=== PATIENT | female | born 1935 | race Caucasian/White ===

== ENCOUNTER 2017-04-09 07:01 | Inpatient (IN) | payer MEDICARE, OTHER ==
[~2017-04-09] VITALS: Ht 157.5 cm; Wt 103.1 kg
[2017-04-09] MEDS ORDERED: fentaNYL INJECTION 100 MCG/2 ML AMP IVP STA ×2 (07:10→09:32)
[2017-04-09 07:15] LABS: BASOPHILS # (AUTO) 0.1 10^3/uL (0.0-0.1); BASOPHILS % (AUTO) 0 % (0-10); EOSINOPHILS # (AUTO) 0.7 10^3/uL (0.0-0.3); EOSINOPHILS % (AUTO) 6 % (0-10); LYMPHOCYTES # (AUTO) 3.3 X 10^3 (1.0-4.0); LYMPHOCYTES % (AUTO) 28 % (12-44); MEAN CORPUSCULAR HEMOGLOBIN 27 PG (25-34); MEAN CORPUSCULAR HGB CONC 31 G/DL (32-36); MEAN CORPUSCULAR VOLUME 86 FL (80-99); MONOCYTES # (AUTO) 1.3 X 10^3 (0.0-1.0); MONOCYTES % (AUTO) 11 % (0-12); NEUTROPHILS # (AUTO) 6.4 X 10^3 (1.8-7.8); NEUTROPHILS % (AUTO) 54 % (42-75); PLATELET COUNT 169 10^3/uL (130-400); RED BLOOD COUNT 3.93 10^6/uL (4.35-5.85); RED CELL DISTRIBUTION WIDTH 13.6 % (10.0-14.5); WHITE BLOOD COUNT 11.7 10^3/uL (4.3-11.0)
[2017-04-09 07:26] LABS: PROTHROMBIN TIME PATIENT 12.8 SEC (12.2-14.7)
[2017-04-09 07:35] LABS: ALBUMIN 3.5 GM/DL (3.2-4.5); BILIRUBIN,TOTAL 0.2 MG/DL (0.1-1.0); CREATININE SERUM 1.29 MG/DL (0.60-1.30); POTASSIUM 5.2 MMOL/L (3.6-5.0); TOTAL PROTEIN 6.5 GM/DL (6.4-8.2)
--- NOTE | 2017-04-09 07:39 | ED Fall/Injury ---
General Chief Complaint: Trauma-Non Activation Stated Complaint: FALL Source: patient, EMS Exam Limitations: no limitations History of Present Illness Time seen by provider: 07:00 Initial Comments Here by EMS with report of fall this morning sometime after 6 a.m. Reports that she was trying to go to the bathroom and was a little unsteady on her feet when she fell onto her left hip. She complains of severe pain to the left hip. EMS was summoned to the [place] [facility]. They did encounter her on the floor. IV established and 100 g of fentanyl was given because of severe pain. Patient denies hitting her head and only has pain on the left hip. No loss of consciousness or neck pain. Patient transported here for further evaluation. Denies other injury aside from the left hip pain. Does admit to landing on her left hip. Occurred: just prior to arrival Severity: moderate Injuries/Pain Location: pelvis, lower extremity Context: lost balance Loss of Consciousness: no loss of consciousness Associated Symptoms (Fall): No Abdominal Pain, No Chest Pain, No Confusion, No Headache, No Lightheadedness, Muscle Spasms, No Nausea/Vomiting, No Neck Pain, No Shortness of Air Allergies and Home Medications Allergies Coded Allergies: amlodipine (Verified Allergy, Unknown, 04/09/17) influenza virus vaccine, specific (Verified Allergy, Unknown, 04/09/17) loratadine (Verified Allergy, Unknown, 04/09/17) metformin (Verified Allergy, Unknown, 04/09/17) niacin (Verified Allergy, Unknown, 04/09/17) Constitutional: see HPI, No chills, No fever Eyes: No Symptoms Reported Ears, Nose, Mouth, Throat: no symptoms reported Respiratory: no symptoms reported, No short of breath Cardiovascular: no symptoms reported Gastrointestinal: No nausea, No vomiting Genitourinary: no symptoms reported, No dysuria, No pain Musculoskeletal: see HPI, joint pain, muscle pain, muscle stiffness Skin: no symptoms reported Psychiatric/Neurological: No Symptoms Reported All Other Systems Reviewed Negative Unless Noted: Yes Past Ststjso-Yaipad-Upkikh Hx Patient Social History Alcohol Use: Denies Use Recreational Drug Use: No Smoking Status: Never a Smoker Recent Foreign Travel: No Contact w/Someone Who Travel: No Surgeries HX Surgeries: Yes Surgeries: Orthopedic Respiratory Hx Respiratory Disorders: No Cardiovascular Hx Cardiac Disorders: Yes Cardiac Disorders: Coronary Artery Disease, Hypertension Neurological Hx Neurological Disorders: Yes Neurological Disorders: Neuropathy Genitourinary Hx Genitourinary Disorders: No Gastrointestinal Hx Gastrointestinal Disorders: No Musculoskeletal Hx Musculoskeletal Disorders: Yes Musculoskeletal Disorders: Fractures Endocrine Hx Endocrine Disorders: Yes Endocrine Disorders: Diabetes, Non-Insulin dep HEENT HX ENT Disorders: No Psychosocial Hx Psychiatric Problems: No Reviewed Nursing Assessment Reviewed/Agree w Nursing PMH: Yes Family Medical History Significant Family History: No Pertinent Family Hx Physical Exam Vital Signs Vital Sign - Last 12Hours 04/09/17 07:01 Temp 98.2 Pulse 72 Resp 14 B/P (MAP) 129/76 Pulse Ox 96 O2 Delivery Nasal Cannula O2 Flow Rate 2.00 Capillary Refill : General Appearance: WD/WN, moderate distress (hip pain) HEENT: PERRL/EOMI, pharynx normal Neck: full range of motion, supple Cardiovascular: regular rate, rhythm, no murmur Respiratory: lungs clear, normal breath sounds Peripheral Pulses: 2+ Dorsalis Pedis (R), 2+ Left Dors-Pedis (L), 2+ Radial Pulses (R), 2+ Radial Pulses (L) Gastrointestinal: non tender, soft Extremities: no pedal edema, pelvis stable, other (moderate tenderness to the area of the left hip. Shortening and rotation of the left leg externally) Neurologic/Psychiatric: alert, oriented x 3 Skin: normal color, warm/dry [place] Coma Score Best Eye Response: (4) Open Spontaneously Best Verbal Response: (5) Oriented Best Motor Response: (6) Obeys Commands Progress/Results/Core Measures Results/Orders Lab Results Laboratory Tests Test 04/09/17 07:05 Range/Units White Blood Count 11.7 H 4.3-11.0 10^3/uL Red Blood Count 3.93 L 4.35-5.85 10^6/uL Hemoglobin 10.5 L 11.5-16.0 G/DL Hematocrit 34 L 35-52 % Mean Corpuscular Volume 86 80-99 FL Mean Corpuscular Hemoglobin 27 25-34 PG Mean Corpuscular Hemoglobin Concent 31 L 32-36 G/DL Red Cell Distribution Width 13.6 10.0-14.5 % Platelet Count 169 130-400 10^3/uL Mean Platelet Volume 7.4-10.4 FL Neutrophils (%) (Auto) 54 42-75 % Lymphocytes (%) (Auto) 28 12-44 % Monocytes (%) (Auto) 11 0-12 % Eosinophils (%) (Auto) 6 0-10 % Basophils (%) (Auto) 0 0-10 % Neutrophils # (Auto) 6.4 1.8-7.8 X 10^3 Lymphocytes # (Auto) 3.3 1.0-4.0 X 10^3 Monocytes # (Auto) 1.3 H 0.0-1.0 X 10^3 Eosinophils # (Auto) 0.7 H 0.0-0.3 10^3/uL Basophils # (Auto) 0.1 0.0-0.1 10^3/uL Prothrombin Time 12.8 12.2-14.7 SEC INR Comment 1.0 0.8-1.4 Activated Partial Thromboplast Time 31 24-35 SEC Sodium Level 136 135-145 MMOL/L Potassium Level 5.2 H 3.6-5.0 MMOL/L Chloride Level 105 98-107 MMOL/L Carbon Dioxide Level 22 21-32 MMOL/L Anion Gap 9 5-14 MMOL/L Blood Urea Nitrogen 27 H 7-18 MG/DL Creatinine 1.29 0.60-1.30 MG/DL Estimat Glomerular Filtration Rate 40 BUN/Creatinine Ratio 21 Glucose Level 205 H 70-105 MG/DL Calcium Level 9.0 8.5-10.1 MG/DL Total Bilirubin 0.2 0.1-1.0 MG/DL Aspartate Amino Transf (AST/SGOT) 22 5-34 U/L Alanine Aminotransferase (ALT/SGPT) 17 0-55 U/L Alkaline Phosphatase 74 40-136 U/L Total Protein 6.5 6.4-8.2 GM/DL Albumin 3.5 3.2-4.5 GM/DL My Orders Orders - MATTHEW JAY MD Cbc With Automated Diff (04/09/17 07:04) Comprehensive Metabolic Panel (04/09/17 07:04) Protime With Inr (04/09/17 07:04) Partial Thromboplastin Time (04/09/17 07:04) Chest 1 View, Ap/Pa Only (04/09/17 07:04) Femur, Left, 2 Views (04/09/17 07:04) Pelvis (04/09/17 07:04) Ct Head Wo (04/09/17 07:04) Fentanyl Injection (Sublimaze Injection (04/09/17 07:10) Ekg Tracing (04/09/17 07:42) Vital Signs/I&O Vital Sign - Last 12Hours 04/09/17 07:01 Temp 98.2 Pulse 72 Resp 14 B/P (MAP) 129/76 Pulse Ox 96 O2 Delivery Nasal Cannula O2 Flow Rate 2.00 Progress Note : Progress Note Seen and evaluated. IV by EMS. Fentanyl 50 g IV. Labs, EKG and chest x-ray ordered. X-ray of the left hip and pelvis ordered. CT head ordered due to history of Plavix use. Monitor patient. 0820: Left hip fracture noted. Attempting to contact Dr. Palma. Message left with his office to return call as cell services currently disrupted. 0847: Discussed case with Dr. Palma. He accepts patient for admission, inpatient status. I did discuss the case with Dr. Simmons 0828 and she accepts patient for consult. Patient agrees with plan. ECG Initial ECG Impression Date: Apr 09, 2017 Initial ECG Impression Time: 08:14 Initial ECG Rate: 69 Initial ECG Rhythm: Normal Sinus Comment Sinus rhythm with left axis deviation. No evidence of ST elevation DE. Similar morphology to previous although axis shift from 05/20/2000. Interpreted by me. Diagnostic Imaging Diagonstic Imaging: Xray Plain Films/CT/US/NM/MRI: femur Comments VIA [facility]. [place], [place] NAME: SHAMIKA STONE [facility] REC#: [id number] PT STATUS: REG ER : 1935 PHYSICIAN: MATTHEW JAY MD ADMIT DATE: 04/09/17/ER Draft Date of Exam:04/09/17 FEMUR, LEFT, 2 VIEWS INDICATION: Fall. Findings: Comminuted intertrochanteric fracture left femur is noted. Femoral head is in normal articulation with the acetabulum. Femoral shaft is intact. Knee shows good alignment. IMPRESSION: Comminuted intertrochanteric fracture left femur. Dictated on workstation # [id number] Dict: 04/09/17 0758 Trans: 04/09/17 0759 [facility] [id number] Interpreted by: CAROL ALEXIS MD Electronically signed by: Reviewed: Reviewed by Me Diagonstic Imaging: CT Plain Films/CT/US/NM/MRI: head Comments VIA [place], [place] NAME: SHAMIKA STONE [facility] REC#: [id number] PT STATUS: REG ER : 1935 PHYSICIAN: MATTHEW JAY MD ADMIT DATE: 04/09/17/ER Draft Date of Exam:04/09/17 CT HEAD WO PROCEDURE: CT head without contrast. TECHNIQUE: Multiple contiguous axial images were obtained through the brain without the use of intravenous contrast. INDICATION: Fall. FINDINGS: Ventricles and cortical gyral pattern are normal. There is no intracranial hemorrhage. There is no mass effect. No extra-axial fluid collection. Basal cisterns are clear. There is focal area of encephalomalacia noted in the left parietal occipital cortex. Mastoid air cells are clear. No calvarial fractures. IMPRESSION: Small focal area of encephalomalacia left parietal occipital cortex, otherwise negative CT head. Dictated on workstation # [id number] Dict: 04/09/17 0756 Trans: 04/09/17 0800 [facility] [id number] Interpreted by: CAROL ALEXIS MD Electronically signed by: Diagonstic Imaging: Xray Plain Films/CT/US/NM/MRI: pelvis Comments VIA [facility]. [place], [place] NAME: SHAMIKA STONE [facility] REC#: [id number] PT STATUS: REG ER : 1935 PHYSICIAN: MATTHEW JAY MD ADMIT DATE: 04/09/17/ER Draft Date of Exam:04/09/17 PELVIS INDICATION: Fall. FINDINGS: There is a comminuted fracture involving the trochanteric region left femur. Femoral head is in normal articulation with the acetabulum. Right hip appears normal. Bony pelvis appears intact. IMPRESSION: Comminuted intertrochanteric fracture left hip. Dictated on workstation # [id number] Dict: 04/09/17 0757 Trans: 04/09/17 0759 [facility] [id number] Interpreted by: CAROL ALEXIS MD Electronically signed by: Reviewed: Reviewed by Ma Diagonstic Imaging: Xray Plain Films/CT/US/NM/MRI: chest Comments VIA [facility]. [place], [place] NAME: SHAMIKA STONE [facility] REC#: [id number] PT STATUS: REG ER : 1935 PHYSICIAN: MATTHEW JAY MD ADMIT DATE: 04/09/17/ER Draft Date of Exam:04/09/17 CHEST 1 VIEW, AP/PA ONLY INDICATION: Fall. Findings: Portable chest show the lungs to be well-aerated and clear. Heart is not enlarged. No pulmonary edema. No hilar adenopathy. No pneumothorax or pleural effusion. No rib fractures. IMPRESSION: Normal portable chest. Dictated on workstation # [id number] Dict: 04/09/17 0758 Trans: 04/09/17 0759 [facility] [id number] Interpreted by: CAROL ALEXIS MD Electronically signed by: Departure Communication Time/Spoke to Admitting Phy: 08:47 Time/Spoke to Consulting Physi: 08:28 Impression Impression: Primary Impression: Fracture, intertrochanteric, left femur Qualified Codes: S72.145A - Nondisplaced intertrochanteric fracture of left femur, initial encounter for closed fracture Disposition: 01 HOME, SELF-CARE Condition: Improved (needs arise a 2 cm) Decision to Admit Reason: Admit from ER (General) Decision to Admit/Date: Apr 09, 2017 Time/Decision to Admit Time: 09:00 Departure-Patient Inst. Referrals: UNKNOWN (PCP/Family) Primary Care Physician MATTHEW JAY MD Apr 09, 2017 07:39
--- NOTE | 2017-04-09 07:59 | Diagnostic Imaging Report ---
INDICATION: Fall. FINDINGS: There is a comminuted fracture involving the trochanteric region left femur. Femoral head is in normal articulation with the acetabulum. Right hip appears normal. Bony pelvis appears intact. IMPRESSION: Comminuted intertrochanteric fracture left hip. Dictated by: Dictated on workstation # [id number]
--- NOTE | 2017-04-09 08:00 | Diagnostic Imaging Report ---
PROCEDURE: CT head without contrast. TECHNIQUE: Multiple contiguous axial images were obtained through the brain without the use of intravenous contrast. INDICATION: Fall. FINDINGS: Ventricles and cortical gyral pattern are normal. There is no intracranial hemorrhage. There is no mass effect. No extra-axial fluid collection. Basal cisterns are clear. There is focal area of encephalomalacia noted in the left parietal occipital cortex. Mastoid air cells are clear. No calvarial fractures. IMPRESSION: Small focal area of encephalomalacia left parietal occipital cortex, otherwise negative CT head. Dictated by: Dictated on workstation # [id number]
--- NOTE | 2017-04-09 08:00 | Diagnostic Imaging Report ---
INDICATION: Fall. Findings: Comminuted intertrochanteric fracture left femur is noted. Femoral head is in normal articulation with the acetabulum. Femoral shaft is intact. Knee shows good alignment. IMPRESSION: Comminuted intertrochanteric fracture left femur. Dictated by: Dictated on workstation # [id number]
--- NOTE | 2017-04-09 08:00 | Diagnostic Imaging Report ---
INDICATION: Fall. Findings: Portable chest show the lungs to be well-aerated and clear. Heart is not enlarged. No pulmonary edema. No hilar adenopathy. No pneumothorax or pleural effusion. No rib fractures. IMPRESSION: Normal portable chest. Dictated by: Dictated on workstation # [id number]
[2017-04-09] MEDS ORDERED: fentaNYL INJECTION 100 MCG/2 ML AMP ONE ×3 (09:28→18:30)
[2017-04-09 09:45] VITALS: BP 133/67
[2017-04-09] MEDS: fentaNYL INJECTION 100 MCG/2 ML AMP IV PRN ×7 (09:53→16:48)
[2017-04-09] MEDS ORDERED: ONDANSETRON 4 MG/2 ML (SDV) Z0FRAN IV PRN (10:15)
[2017-04-09] MEDS ORDERED: CATHETER FLUSH 10 ML SYR IV PRN (10:15)
[2017-04-09] MEDS ORDERED: NS IV 1000 ML 1,000 ML IV SCH (10:15)
[2017-04-09] MEDS ORDERED: DULO60CA58 PO (11:15)
[2017-04-09] MEDS ORDERED: DEXT15DR26 OU (11:15)
[2017-04-09] MEDS ORDERED: ASPI325T32 PO (11:15)
[2017-04-09] MEDS ORDERED: QUET25TA73 PO (11:15)
[2017-04-09] MEDS ORDERED: LUTE1CAP4 PO (11:15)
[2017-04-09] MEDS ORDERED: DOCU-143 PO (11:15)
[2017-04-09] MEDS ORDERED: INSU100V6 SC (11:15)
[2017-04-09] MEDS ORDERED: NAPR220T66 PO ×2 (11:15)
[2017-04-09] MEDS ORDERED: [UNRECOGNIZED DRUG - CODE] PO (11:15)
[2017-04-09] MEDS ORDERED: CRAN250C2 PO (11:15)
[2017-04-09] MEDS ORDERED: CLOP75TA28 PO (11:15)
[2017-04-09] MEDS ORDERED: HYDR-3923 PO (11:15)
[2017-04-09] MEDS ORDERED: PANT40TA3 PO (11:15)
[2017-04-09] MEDS ORDERED: DEXT15DR25 OU (11:15)
[2017-04-09] MEDS ORDERED: LEVO50TA6 PO (11:15)
[2017-04-09] MEDS ORDERED: MELA1TAB15 PO (11:15)
[2017-04-09] MEDS ORDERED: GLIP5TAB13 PO (11:15)
[2017-04-09] MEDS ORDERED: ACET-2267 PO (11:15)
[2017-04-09] MEDS ORDERED: QUET25TA PO (11:15)
[2017-04-09] MEDS ORDERED: GLUC-160 PO (11:15)
[2017-04-09] MEDS ORDERED: HYDR50TA3 PO (11:15)
[2017-04-09] MEDS ORDERED: AMOX1TAB11 PO (11:15)
[2017-04-09] MEDS ORDERED: CARV25TA PO (11:15)
[2017-04-09 12:00] VITALS: BP 132/62
[2017-04-09 12:04] LABS: BILIRUBIN,URINE NEGATIVE (NEGATIVE); KETONES,URINE NEGATIVE (NEGATIVE); LEUKOCYTE ESTERASE ,URINE 1+ (NEGATIVE); NITRITE,URINE NEGATIVE (NEGATIVE); PH,URINE 5 (5-9); PROTEIN,URINE 1+ (NEGATIVE); UROBILINOGEN,URINE NORMAL (NORMAL)
[2017-04-09 12:16] LABS: SQUAMOUS EPITHELIAL CELL,UR RARE /HPF
[2017-04-09] MEDS: inSUlin (REGULAR) HUMAN 1 UNIT/0.01 ML (CHARGE PER UNIT) SC SCH ×3 (15:21→21:36)
[2017-04-09 16:41] VITALS: BP 119/68
[2017-04-09] MEDS ORDERED: morphine INJ 10 MG/ML 1ML (SYR OR VIAL) ONE (17:08)
[2017-04-09] MEDS ORDERED: ONDANSETRON 4 MG/2 ML (SDV) Z0FRAN ONE ×2 (17:09→18:30)
--- NOTE | 2017-04-09 17:30 | History & Physicial ---
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 she was unable to bear weight after the fall due to severe left hip pain. she denies other sites of pain. she has no numbness or tingling. she is requesting surgical stabilization and she understands the risks and the benefits. Date of Admission Apr 09, 2017 at 08:50 Date Seen by Provider: Apr 09, 2017 Time Seen by Provider: 17:28 I consulted on this patient on 04/09/17 17:26 Attending Physician Martha Palma DO Admitting Physician Kerline Simmons MD Consult Allergies and Home Medications Allergies Coded Allergies: amlodipine (Verified Allergy, Unknown, 04/09/17) influenza virus vaccine, specific (Verified Allergy, Unknown, 04/09/17) loratadine (Verified Allergy, Unknown, 04/09/17) metformin (Verified Allergy, Unknown, 04/09/17) niacin (Verified Allergy, Unknown, 04/09/17) Home Medications Acetaminophen 500 Mg Tablet, 1,000 MG PO HS, (Reported) TAKES 2 (500MG) TABLETS Amoxicillin/Potassium Clav 1 Each Tablet, 1 TAB PO BID for 7 Days, (Reported) 7 DAY THERAPY STARTED 04-04-17 Aspirin 325 Mg Tablet.dr, 325 MG PO DAILY, (Reported) Carvedilol 25 Mg Tablet, 25 MG PO BID, (Reported) Clopidogrel Bisulfate 75 Mg Tablet, 75 MG PO DAILY, (Reported) Cranberry Extract 250 Mg Capsule, 250 MG PO BID, (Reported) Dextran 70/Hypromellose 15 Ml Drops, 1 DROP OU TID, (Reported) Dextran/Hypromellose/Glycerin 15 Ml Drops, 1 DROP OU PRN PRN for DRY EYES, ( Reported) Docusate Sodium 100 Mg Capsule, 100 MG PO DAILY PRN for CONSTIPATION-1ST LINE, ( Reported) Duloxetine HCl 60 Mg Capsule.dr, 60 MG PO HS, (Reported) Glipizide 5 Mg Tablet, 5 MG PO 1200, (Reported) Glucosamine/D3/Boswellia Vijaya 1 Each Tablet, 1 TAB PO TID, (Reported) Hydralazine HCl 25 Mg Tablet, 25 MG PO TID, (Reported) Hydrochlorothiazide 50 Mg Tablet, 50 MG PO DAILY PRN for HTN, (Reported) Insulin Glargine,Hum.rec.anlog 100 Unit/1 Ml Vial, 60 UNITS SC DAILY, (Reported) L. Acidophilus/Bifido Longum 15 Mg Capsule.dr, 1 CAP PO BID for 7 Days, ( Reported) 7 DAY THERAPY STARTED 04-04-17 Levothyroxine Sodium 50 Mcg Tablet, 50 MCG PO DAILY, (Reported) Lutein/Zeaxanthin 1 Each Capsule, 1 CAP PO DAILY, (Reported) Melatonin/Pyridoxine 1 Each Tablet, 5 MG PO HS, (Reported) Naproxen Sodium 220 Mg Tablet, 220 MG PO DAILY, (Reported) Naproxen Sodium 220 Mg Tablet, 220 MG PO BID PRN for PAIN-MILD, (Reported) Pantoprazole Sodium 40 Mg Tablet.dr, 40 MG PO DAILY, (Reported) Quetiapine Fumarate 25 Mg Tablet, 12.5 MG PO HS, (Reported) TAKES 1/2 (25MG) TABLET Quetiapine Fumarate 25 Mg Tablet, 25 MG PO DAILY PRN for ANXIETY, (Reported) Past Ucnkoss-Lzggxh-Uztvxy Hx Patient Social History Alcohol Use: Denies Use Recreational Drug Use: No Smoking Status: Never a Smoker 2nd Hand Smoke Exposure: No Physical Abuse Screen: No Sexual Abuse: No Recent Foreign Travel: No Contact w/other who traveled: No Recent Hopitalizations: No Recent Infectious Disease Expo: No Immunizations Up To Date Date of Pneumonia Vaccine: Nov 13, 2016 Seasonal Allergies Seasonal Allergies: No Surgeries HX Surgeries: Yes Surgeries: Orthopedic Respiratory Hx Respiratory Disorders: No Cardiovascular Hx Cardiovascular Disorders: Yes Cardiac Disorders: Coronary Artery Disease, Hypertension Neurological Hx Neurological Disorders: Yes Neurological Disorders: Neuropathy Reproductive System Sexually Transmitted Disease: No HIV/AIDS: No Female Reproductive Disorders: Denies Genitourinary Hx Genitourinary Disorders: No Genitourinary Disorders: UTI-Chronic Gastrointestinal Hx Gastrointestinal Disorders: No Gastrointestinal Disorders: Gastroesophageal Reflux Musculoskeletal Hx Musculoskeletal Disorders: Yes Musculoskeletal Disorders: Degenerate Disk Disease, Arthritis, Chronic Back Pain, Fractures Endocrine Hx Endocrine Disorders: Yes Endocrine Disorders: Diabetes, Non-Insulin dep HEENT HX ENT Disorders: No Psychosocial Hx Psychiatric Problems: No Behavioral Health Disorders: Sleep Difficulties, Anxiety, Depression Blood Transfusions Adverse Reaction to a Blood Tr: Yes Reviewed Nursing Assessment Reviewed/Agree w Nursing PMH: Yes Family Medical History Significant Family History: No Pertinent Family Hx Family Hx: Cardiovascular disease 19 MOTHER Diabetes mellitus 19 MOTHER G8 BROTHER G8 BROTHER Hypertension 19 FATHER Constitutional: no symptoms reported Physical Exam Vital Signs Vital Sign - Last 12Hours 04/09/17 07:01 Temp 98.2 Pulse 72 Resp 14 B/P (MAP) 129/76 Pulse Ox 96 O2 Delivery Nasal Cannula O2 Flow Rate 2.00 Capillary Refill : Less Than 3 Seconds General Appearance: No Apparent Distress Extremity: Other (LLE: short and ext rotated, severe pain with log roll, 2/4 DP , PT, NVSI) Assessment/Plan Assessment and Plan ASSESSMENT: 81 yr with displaced intertrochanteric hip fracture PLAN: left hip IM nailing NPO medicine to clear post operative DVT prophylaxis plan for post op WBAT Problems: Clinical Quality Measures DVT/VTE Risk/Contraindication: Risk Factor Score Per Nursin RFS Level Per Nursing on Admit: 4+=Very High MARTHA PALMA DO Apr 09, 2017 17:30
--- NOTE | 2017-04-09 17:38 | History & Physicial ---
History of Present Illness History of Present Illness Reason for visit/HPI PT IS AN 81 Y/O FEMALE WHO IS A NEW PATIENT TO MY PRACTICE. SHE PRESENTED TO THE EMERGENCY DEPARTMENT AFTER HAVING A FALL AT HER ASSISTED LIVING FACILITY - [facility]IA [facility]. 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 SHE WAS BROUGHT TO THE EMERGENCY DEPARTMENT AROUND 6AM AND WAS ADMITTED TO THE HOSPITAL AFTER CONFIRMATION OF HIP FRACTURE BY XRAY. Date of Admission Apr 09, 2017 at 08:50 Date Seen by Provider: Apr 09, 2017 Time Seen by Provider: 17:33 I consulted on this patient on 04/09/17 17:33 Attending Physician Martha Palma DO Admitting Physician MARTHA PALMA DO Consult Allergies and Home Medications Allergies Coded Allergies: amlodipine (Verified Allergy, Unknown, 04/09/17) influenza virus vaccine, specific (Verified Allergy, Unknown, 04/09/17) loratadine (Verified Allergy, Unknown, 04/09/17) metformin (Verified Allergy, Unknown, 04/09/17) niacin (Verified Allergy, Unknown, 04/09/17) Home Medications Acetaminophen 500 Mg Tablet, 1,000 MG PO HS, (Reported) TAKES 2 (500MG) TABLETS Amoxicillin/Potassium Clav 1 Each Tablet, 1 TAB PO BID for 7 Days, (Reported) 7 DAY THERAPY STARTED 04-04-17 Aspirin 325 Mg Tablet.dr, 325 MG PO DAILY, (Reported) Carvedilol 25 Mg Tablet, 25 MG PO BID, (Reported) Clopidogrel Bisulfate 75 Mg Tablet, 75 MG PO DAILY, (Reported) Cranberry Extract 250 Mg Capsule, 250 MG PO BID, (Reported) Dextran 70/Hypromellose 15 Ml Drops, 1 DROP OU TID, (Reported) Dextran/Hypromellose/Glycerin 15 Ml Drops, 1 DROP OU PRN PRN for DRY EYES, ( Reported) Docusate Sodium 100 Mg Capsule, 100 MG PO DAILY PRN for CONSTIPATION-1ST LINE, ( Reported) Duloxetine HCl 60 Mg Capsule.dr, 60 MG PO HS, (Reported) Glipizide 5 Mg Tablet, 5 MG PO 1200, (Reported) Glucosamine/D3/Boswellia Vijaya 1 Each Tablet, 1 TAB PO TID, (Reported) Hydralazine HCl 25 Mg Tablet, 25 MG PO TID, (Reported) Hydrochlorothiazide 50 Mg Tablet, 50 MG PO DAILY PRN for HTN, (Reported) Insulin Glargine,Hum.rec.anlog 100 Unit/1 Ml Vial, 60 UNITS SC DAILY, (Reported) L. Acidophilus/Bifido Longum 15 Mg Capsule.dr, 1 CAP PO BID for 7 Days, ( Reported) 7 DAY THERAPY STARTED 04-04-17 Levothyroxine Sodium 50 Mcg Tablet, 50 MCG PO DAILY, (Reported) Lutein/Zeaxanthin 1 Each Capsule, 1 CAP PO DAILY, (Reported) Melatonin/Pyridoxine 1 Each Tablet, 5 MG PO HS, (Reported) Naproxen Sodium 220 Mg Tablet, 220 MG PO DAILY, (Reported) Naproxen Sodium 220 Mg Tablet, 220 MG PO BID PRN for PAIN-MILD, (Reported) Pantoprazole Sodium 40 Mg Tablet.dr, 40 MG PO DAILY, (Reported) Quetiapine Fumarate 25 Mg Tablet, 12.5 MG PO HS, (Reported) TAKES 1/2 (25MG) TABLET Quetiapine Fumarate 25 Mg Tablet, 25 MG PO DAILY PRN for ANXIETY, (Reported) Past Npvpjsk-Kyywdk-Yjwmxy Hx Patient Social History Marrital Status: Number of Children: 3 Number of living children: 3 Living Status: LIVES AT [facility] Employed/Student: retired Alcohol Use: Denies Use Recreational Drug Use: No Smoking Status: Never a Smoker 2nd Hand Smoke Exposure: No Physical Abuse Screen: No Sexual Abuse: No Recent Foreign Travel: No Contact w/other who traveled: No Recent Hopitalizations: No Recent Infectious Disease Expo: No Immunizations Up To Date Date of Pneumonia Vaccine: Nov 13, 2016 Seasonal Allergies Seasonal Allergies: No Surgeries HX Surgeries: Yes Surgeries: Orthopedic Respiratory Hx Respiratory Disorders: No Cardiovascular Hx Cardiovascular Disorders: Yes Cardiac Disorders: Coronary Artery Disease, Hypertension Neurological Hx Neurological Disorders: Yes Neurological Disorders: Neuropathy Reproductive System : No Hx Reproductive Disorders: No Sexually Transmitted Disease: No HIV/AIDS: No Female Reproductive Disorders: Denies 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 Genitourinary Hx Genitourinary Disorders: Yes Genitourinary Disorders: UTI-Chronic Gastrointestinal Hx Gastrointestinal Disorders: Yes Gastrointestinal Disorders: Gastroesophageal Reflux Musculoskeletal Hx Musculoskeletal Disorders: Yes Musculoskeletal Disorders: Degenerate Disk Disease, Arthritis, Chronic Back Pain, Fractures Endocrine Hx Endocrine Disorders: Yes Endocrine Disorders: Diabetes, Non-Insulin dep HEENT HX ENT Disorders: No Loss of Vision: Denies Hearing Impairment: Denies Cancer Hx Cancer: No Psychosocial Hx Psychiatric Problems: Yes Behavioral Health Disorders: Sleep Difficulties, Anxiety, Depression Integumentary HX Skin/Integumentary Disorder: No Blood Transfusions Hx Blood Disorders: No Adverse Reaction to a Blood Tr: Yes Reviewed Nursing Assessment Reviewed/Agree w Nursing PMH: Yes Family Medical History Significant Family History: Heart Disease, Cancer, Diabetes, Hypertension Family Hx: Cardiovascular disease 19 MOTHER Diabetes mellitus 19 MOTHER G8 BROTHER G8 BROTHER Hypertension 19 FATHER Constitutional: No chills, No fever, No malaise, weakness EENTM: No mouth pain, No throat pain Respiratory: No cough, No dyspnea on exertion Cardiovascular: No chest pain, edema, No palpitations Gastrointestinal: No abdominal pain, constipation (CHRONIC) Genitourinary: frequency, incontinence (stress) Musculoskeletal: joint pain (LEFT HIP/GROIN, BILATERAL KNEES) Skin: no symptoms reported Psychiatric/Neurological: Anxiety, Depressed All Other Systems Reviewed Negative Unless Noted: Yes Physical Exam Vital Signs Vital Sign - Last 12Hours 04/09/17 07:01 Temp 98.2 Pulse 72 Resp 14 B/P (MAP) 129/76 Pulse Ox 96 O2 Delivery Nasal Cannula O2 Flow Rate 2.00 Capillary Refill : Less Than 3 Seconds General Appearance: WD/WN, Moderate Distress (DUE TO PAIN) Eyes: Bilateral Eye EOMI, Bilateral Eye Normal Inspection, Bilateral Eye PERRL HEENT: PERRL/EOMI, Pharynx Normal Neck: Full Range of Motion, Supple Respiratory: Chest Non Tender, Lungs Clear, Normal Breath Sounds, No Accessory Muscle Use, No Respiratory Distress Cardiovascular: Regular Rate, Rhythm, Other (TRACE EDEMA BILATERAL LOWER EXTREMITES) Gastrointestinal: Normal Bowel Sounds, Non Tender, Soft Rectal: Deferred Extremity: Pedal Edema Neurologic/Psychiatric: Alert, Oriented x3, No Motor/Sensory Deficits, Normal 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 DR. PALMA TO TAKE PATIENT TO SURGERY TONIGHT. PHYSICAL THERAPY RECOMMENDATIONS PER DR. PALMA. PT REPORTS THAT SHE WOULD LIKE TO GO TO THE HEALTHCARE SIDE OF [facility] ON DISCHARGE FOR HER REHAB, THEN WHEN BETTER GO BACK TO ASSISTED LIVING. URINARY TRACT INFECTION - RESUME ORAL ANTIBIOTICS IN THE MORNING - PT WILL RECEIVE IV ANTIBIOTICS PRE-OP. ANEMIA - MONITOR LABS IN THE MORNING - MAY NEED TO GIVE PT BLOOD OR IRON. HYPERTENSION - RESUME HOME MEDS TONIGHT. DIABETES MELLITUS - WILL PLACE ON SLIDING SCALE, RESUME USP INSULIN - START LEVEMIR TOMORROW NIGHT. CHRONIC OSTEOARTHRITIS PAIN OF KNEES BILATERALLY - RESUME NAPROXEN TOMORROW MORNING. DEPRESSION WITH PSYCHOSIS - ON SEROQUEL AND CYMBALTA - RESUME TONIGHT. DVT PROPHYLAXIS - START LOVENOX TOMORROW GI PROPHYLAXIS - PPI Problems: Admission Diagnosis COMMINUTED INTERTROCHANTERIC LEFT FEMUR FRACTURE URINARY TRACT INFECTION ANEMIA HYPERTENSION DIABETES MELLITUS CHRONIC OSTEOARTHRITIS PAIN OF KNEES BILATERALLY DEPRESSION WITH PSYCHOSIS INSOMNIA Clinical Quality Measures DVT/VTE Risk/Contraindication: Risk Factor Score Per Nursin RFS Level Per Nursing on Admit: 4+=Very High SHWETA FRANKS MD Apr 09, 2017 17:38
[2017-04-09] MEDS: fentaNYL INJECTION 100 MCG/2 ML AMP IVP PRN (17:44)
[2017-04-09] MEDS ORDERED: DOCUSATE SODIUM 100 MG (COLACE) CAP PO PRN (17:45)
[2017-04-09] MEDS ORDERED: QUEtiapine 25 MG (SEROquel) TAB IMMEDIATE RELEASE PO PRN (17:45)
[2017-04-09] MEDS ORDERED: ARTIFICAL TEARS 0.4 ML UNIT DOSE (REFRESH PLUS) OU PRN (18:15)
[2017-04-09] MEDS: CARVEDILOL 12.5 MG (COREG) TABLET PO SCH ×2 (18:25→21:34)
[2017-04-09 18:27] VITALS: BP 160/70
[2017-04-09] MEDS ORDERED: LIDOCAINE 2% 20 ML (XYLOCAINE) VIAL ONE (18:30)
[2017-04-09] MEDS ORDERED: proPOfol 200 MG/20 ML (DIPRIVAN) VIAL IV ONE (18:30)
[2017-04-09] MEDS ORDERED: MIDAZOLAM 2 MG/2 ML (VERSED) VIAL ONE (18:31)
[2017-04-09] MEDS: LACTATED RINGERS 1,000 ML IV SCH (18:36)
[2017-04-09] MEDS: AUGMENTIN 500 MG TAB (AMOXICILLIN/CLAVULANATE) PO SCH (18:38)
[2017-04-09] MEDS: NAPROXEN 250 MG (NAPROSYN) TABLET PO SCH (18:38)
[2017-04-09] MEDS ORDERED: LIDOCAINE PF 2% 5 ML (XYLOCAINE) VIAL ONE (18:52)
[2017-04-09] MEDS ORDERED: ROCURONIUM 50 MG/5 ML (ZEMURON) VIAL IV ONE (19:02)
[2017-04-09] MEDS ORDERED: SEVOFLURANE (ULTANE) 15 ML INHAL SOLN ONE ×4 (19:20)
[2017-04-09] MEDS ORDERED: ceFAZolin 2 GM/50 ML NS 50 ML IV ONE (19:30)
[2017-04-09] MEDS ORDERED: morphine INJ 10 MG/ML 1ML (SYR OR VIAL) IVP PRN (19:30)
[2017-04-09] MEDS ORDERED: ONDANSETRON 4 MG/2 ML (SDV) Z0FRAN IVP PRN (19:30)
[2017-04-09] MEDS ORDERED: fentaNYL INJECTION 100 MCG/2 ML AMP IVP PRN (19:30)
--- NOTE | 2017-04-09 20:42 | Diagnostic Imaging Report ---
INDICATION: Fracture. EXAMINATION: Fluoroscopy was utilized with actual fluoroscopy time of 2 minutes and 37 seconds during nailing of proximal femur fracture. FINDINGS: Intraoperative spot views following deployment of hardware showed anatomic alignment. IMPRESSION: Fluoroscopy utilized during repair of displaced proximal femur fracture. Dictated by: Dictated on workstation # [id number]
[2017-04-09] MEDS ORDERED: CRANBERRY EXTRACT 250 MG PO SCH (21:00)
[2017-04-09] MEDS ORDERED: GLUCOSAMINE PO SCH (21:00)
[2017-04-09] MEDS ORDERED: [UNRECOGNIZED DRUG - OTHER] PO SCH (21:00)
[2017-04-09] MEDS ORDERED: D3 PO SCH (21:00)
[2017-04-09] MEDS ORDERED: BOSWELLIA SERRA PO SCH (21:00)
[2017-04-09] MEDS: ACETAMINOPHEN 500 MG TAB (TYLENOL) PO SCH (21:34)
[2017-04-09] MEDS: QUEtiapine 25 MG (SEROquel) TAB IMMEDIATE RELEASE PO SCH (21:34)
[2017-04-09] MEDS: DULoxetine 30 MG (CYMBALTA) CAP PO SCH (21:34)
[2017-04-09] MEDS: LACTOBACILLUS Acidoph/Bulgar (LACTINEX/FLORANEX) TAB PO SCH (21:34)
[2017-04-09] MEDS: MELATONIN 3 MG TABLET PO SCH (21:34)
[2017-04-09] MEDS: hydrALAZINE (APRESOLINE) 25 MG TAB PO SCH (21:35)
[2017-04-09] MEDS: ARTIFICAL TEARS 0.4 ML UNIT DOSE (REFRESH PLUS) OU SCH (21:35)
[2017-04-09 22:12] VITALS: BP 115/70
[2017-04-10] VITALS (12 sets, daily range): BP systolic 123–184; BP diastolic 57–71
[2017-04-10] MEDS: LACTATED RINGERS 1,000 ML IV SCH (01:12)
[2017-04-10] MEDS: ceFAZolin 2 GM/50 ML NS 50 ML IV SCH ×3 (02:16→18:21)
[2017-04-10] MEDS: fentaNYL INJECTION 100 MCG/2 ML AMP IVP PRN ×4 (02:19→09:50)
[2017-04-10] MEDS: ACETAMINOPHEN 500 MG TAB (TYLENOL) PO SCH ×2 (04:08→20:32)
--- NOTE | 2017-04-10 04:50 | Progress Note (SOAP) ---
Subjective Time Seen by Provider: 04:48 Subjective/Events-last exam POD #1, s/p Left hip TFN Complains of hip pain at this time Review of Systems General: No Chills Gastrointestinal: No: Nausea Musculoskeletal: leg pain Neurological: No: Numbness, Weakness Objective Exam Vital Signs Date Time Temp Pulse Resp B/P (MAP) Pulse Ox O2 Delivery O2 Flow Rate FiO2 04/10/17 04:19 97.6 81 18 144/62 100 Nasal Cannula 2.00 04/10/17 00:00 98.0 80 17 128/58 93 Nasal Cannula 2.00 04/09/17 22:12 96.1 67 18 115/70 98 Nasal Cannula 2.00 04/09/17 21:25 Nasal Cannula 2.00 04/09/17 21:00 Nasal Cannula 4.00 04/09/17 18:27 83 160/70 04/09/17 16:41 97.1 83 18 119/68 95 Nasal Cannula 2.00 04/09/17 15:35 Nasal Cannula 2.00 04/09/17 12:00 96.9 75 18 132/62 97 Nasal Cannula 2.00 04/09/17 11:02 Nasal Cannula 2.00 04/09/17 09:45 97.3 73 22 133/67 94 Nasal Cannula 2.00 04/09/17 09:26 98.2 72 14 96 2.00 04/09/17 07:01 98.2 72 14 129/76 96 Nasal Cannula 2.00 I & O 04/10/17 07:00 Intake Total 2100 ml Output Total 850 ml Balance 1250 ml Capillary Refill : Less Than 3 SecondsLess Than 3 Seconds General Appearance: No Apparent Distress Extremity: No Calf Tenderness Neurologic/Psychiatric: Alert, Oriented x3, No Motor/Sensory Deficits, Normal Mood/Affect, Abnormal Cerebellar Tests Skin: Other (Dressing CDI) Results Lab Laboratory Tests 04/09/17 07:05: White Blood Count 11.7H, Red Blood Count 3.93L, Hemoglobin 10.5L, Hematocrit 34L , Mean Corpuscular Volume 86, Mean Corpuscular Hemoglobin 27, Mean Corpuscular Hemoglobin Concent 31L, Red Cell Distribution Width 13.6, Platelet Count 169, Mean Platelet Volume , Neutrophils (%) (Auto) 54, Lymphocytes (%) (Auto) 28, Monocytes (%) (Auto) 11, Eosinophils (%) (Auto) 6, Basophils (%) (Auto) 0, Neutrophils # (Auto) 6.4, Lymphocytes # (Auto) 3.3, Monocytes # (Auto) 1.3H, Eosinophils # (Auto) 0.7H, Basophils # (Auto) 0.1, Prothrombin Time 12.8, INR Comment 1.0, Activated Partial Thromboplast Time 31, Sodium Level 136, Potassium Level 5.2H, Chloride Level 105, Carbon Dioxide Level 22, Anion Gap 9, Blood Urea Nitrogen 27H, Creatinine 1.29, Estimat Glomerular Filtration Rate 40 , BUN/Creatinine Ratio 21, Glucose Level 205H, Calcium Level 9.0, Total Bilirubin 0.2, Aspartate Amino Transf (AST/SGOT) 22, Alanine Aminotransferase ( ALT/SGPT) 17, Alkaline Phosphatase 74, Total Protein 6.5, Albumin 3.5 04/09/17 11:50: Urine Color YELLOW, Urine Clarity CLEAR, Urine pH 5, Urine Specific Snover 1.020, Urine Protein 1+H, Urine Glucose (UA) NEGATIVE, Urine Ketones NEGATIVE, Urine Nitrite NEGATIVE, Urine Bilirubin NEGATIVE, Urine Urobilinogen NORMAL, Urine Leukocyte Esterase 1+H, Urine RBC (Auto) NEGATIVE, Urine RBC NONE, Urine WBC NONE, Urine Squamous Epithelial Cells RARE, Urine Crystals NONE, Urine Bacteria NEGATIVE, Urine Casts NONE, Urine Mucus NEGATIVE, Urine Culture Indicated NO 04/09/17 14:55: Glucometer 175H 04/09/17 21:33: Glucometer 217H Assessment/Plan Assessment/Plan Assess & Plan/Chief Complaint Comminuted left trochanteric femur fracture S/P left hip TFN placement Ambulate DC planning Clinical Quality Measures DVT/VTE Risk/Contraindication: Risk Factor Score Per Nursin RFS Level Per Nursing on Admit: 4+=Very High STEFANIE MOSER Apr 10, 2017 04:50
[2017-04-10 05:05] LABS: BASOPHILS % (AUTO) 0 % (0-10); EOSINOPHILS % (AUTO) 0 % (0-10); LYMPHOCYTES # (AUTO) 2.5 X 10^3 (1.0-4.0); LYMPHOCYTES % (AUTO) 12 % (12-44); MEAN CORPUSCULAR HEMOGLOBIN 27 PG (25-34); MEAN CORPUSCULAR HGB CONC 31 G/DL (32-36); MEAN CORPUSCULAR VOLUME 88 FL (80-99); MONOCYTES # (AUTO) 2.1 X 10^3 (0.0-1.0); MONOCYTES % (AUTO) 11 % (0-12); NEUTROPHILS # (AUTO) 15.5 X 10^3 (1.8-7.8); NEUTROPHILS % (AUTO) 77 % (42-75); PLATELET COUNT 142 10^3/uL (130-400); RED BLOOD COUNT 2.85 10^6/uL (4.35-5.85); RED CELL DISTRIBUTION WIDTH 13.7 % (10.0-14.5); WHITE BLOOD COUNT 20.2 10^3/uL (4.3-11.0)
[2017-04-10 05:25] LABS: ALBUMIN 3.5 GM/DL (3.2-4.5); BILIRUBIN,TOTAL 0.2 MG/DL (0.1-1.0); CALCIUM 8.3 MG/DL (8.5-10.1); CREATININE SERUM 1.67 MG/DL (0.60-1.30); TOTAL PROTEIN 6.2 GM/DL (6.4-8.2)
[2017-04-10] MEDS: LEVOTHYROXINE 50 MCG (LEVOTHROID) TAB PO SCH (06:04)
[2017-04-10] MEDS: PANTOPRAZOLE 40 MG (PROTONIX) TAB PO SCH (06:04)
[2017-04-10] MEDS: AUGMENTIN 500 MG TAB (AMOXICILLIN/CLAVULANATE) PO SCH ×2 (06:05→17:31)
[2017-04-10] MEDS: NAPROXEN 250 MG (NAPROSYN) TABLET PO SCH ×2 (06:05→17:31)
[2017-04-10] MEDS: inSUlin (REGULAR) HUMAN 1 UNIT/0.01 ML (CHARGE PER UNIT) SC SCH ×4 (06:08→21:03)
--- NOTE | 2017-04-10 08:13 | Anesthesia-General Post-Op ---
General Patient Condition Mental Status/LOC: Same as Preop Cardiovascular: Satisfactory Nausea/Vomiting: Absent Respiratory: Satisfactory Pain: Controlled Complications: Absent Post Op Complications Complications None Follow Up Care/Instructions Patient Instructions None needed. Anesthesia/Patient Condition Patient Condition Patient is doing well, no complaints, stable vital signs, no apparent adverse anesthesia problems. No complications reported per nursing. FAIZAN NAJERA CRNA Apr 10, 2017 08:13
--- NOTE | 2017-04-10 08:28 | Progress Note (SOAP) ---
Subjective Date Seen by Provider: Apr 10, 2017 Time Seen by Provider: 08:28 Subjective/Events-last exam PT HAS PAIN IN HER HIP, SHE STATES THAT SHE IS WORRIED ABOUT DOING THERAPY BEFORE SHE GETS BLOOD DUE TO HAVING DIZZINESS. SHE STATES THAT SHE DOES NOT HAVE CHEST PAIN, SHE IS SHORT OF BREATH. Review of Systems General: Fatigue HEENT: No Head Aches Pulmonary: No Dyspnea, No Cough Cardiovascular: No: Chest Pain Gastrointestinal: No: Abdominal Pain, Nausea Neurological: Weakness, No: Confusion Objective Exam Vital Signs Date Time Temp Pulse Resp B/P (MAP) Pulse Ox O2 Delivery O2 Flow Rate FiO2 04/10/17 07:34 Nasal Cannula 4.00 04/10/17 04:19 97.6 81 18 144/62 100 Nasal Cannula 2.00 04/10/17 00:00 98.0 80 17 128/58 93 Nasal Cannula 2.00 04/09/17 22:12 96.1 67 18 115/70 98 Nasal Cannula 2.00 04/09/17 21:25 Nasal Cannula 2.00 04/09/17 21:00 Nasal Cannula 4.00 04/09/17 18:27 83 160/70 04/09/17 16:41 97.1 83 18 119/68 95 Nasal Cannula 2.00 04/09/17 15:35 Nasal Cannula 2.00 04/09/17 12:00 96.9 75 18 132/62 97 Nasal Cannula 2.00 04/09/17 11:02 Nasal Cannula 2.00 04/09/17 09:45 97.3 73 22 133/67 94 Nasal Cannula 2.00 04/09/17 09:26 98.2 72 14 96 2.00 I & O 04/10/17 07:00 Intake Total 2900 ml Output Total 1000 ml Balance 1900 ml Capillary Refill : Less Than 3 SecondsLess Than 3 Seconds General Appearance: WD/WN, Mild Distress HEENT: No PERRL/EOMI Neck: Supple Respiratory: Chest Non Tender, Lungs Clear, Normal Breath Sounds Cardiovascular: Regular Rate, Rhythm Gastrointestinal: normal bowel sounds, non tender, soft Extremity: Pedal Edema Neurologic/Psychiatric: Alert, Oriented x3, No Motor/Sensory Deficits, Normal Mood/Affect Skin: Warm/Dry Lymphatic: No Adenopathy Results Lab Laboratory Tests 04/09/17 11:50: Urine Color YELLOW, Urine Clarity CLEAR, Urine pH 5, Urine Specific Vestal 1.020, Urine Protein 1+H, Urine Glucose (UA) NEGATIVE, Urine Ketones NEGATIVE, Urine Nitrite NEGATIVE, Urine Bilirubin NEGATIVE, Urine Urobilinogen NORMAL, Urine Leukocyte Esterase 1+H, Urine RBC (Auto) NEGATIVE, Urine RBC NONE, Urine WBC NONE, Urine Squamous Epithelial Cells RARE, Urine Crystals NONE, Urine Bacteria NEGATIVE, Urine Casts NONE, Urine Mucus NEGATIVE, Urine Culture Indicated NO 04/09/17 14:55: Glucometer 175H 04/09/17 21:33: Glucometer 217H 04/10/17 04:46: White Blood Count 20.2H, Red Blood Count 2.85L, Hemoglobin 7.8#L, Hematocrit 25L , Mean Corpuscular Volume 88, Mean Corpuscular Hemoglobin 27, Mean Corpuscular Hemoglobin Concent 31L, Red Cell Distribution Width 13.7, Platelet Count 142, Mean Platelet Volume , Neutrophils (%) (Auto) 77H, Lymphocytes (%) (Auto) 12, Monocytes (%) (Auto) 11, Eosinophils (%) (Auto) 0, Basophils (%) (Auto) 0, Neutrophils # (Auto) 15.5H, Lymphocytes # (Auto) 2.5, Monocytes # (Auto) 2.1H, Eosinophils # (Auto) 0.0, Basophils # (Auto) 0.0, Sodium Level 135, Potassium Level 6.0H, Chloride Level 105, Carbon Dioxide Level 18L, Anion Gap 12, Blood Urea Nitrogen 37H, Creatinine 1.67H, Estimat Glomerular Filtration Rate 29, BUN/ Creatinine Ratio 22, Glucose Level 218H, Calcium Level 8.3L, Total Bilirubin 0.2 , Aspartate Amino Transf (AST/SGOT) 38H, Alanine Aminotransferase (ALT/SGPT) 22 , Alkaline Phosphatase 60, Total Protein 6.2L, Albumin 3.5 Assessment/Plan Assessment/Plan Assess & Plan/Chief Complaint COMMINUTED INTERTROCHANTERIC LEFT FEMUR FRACTURE URINARY TRACT INFECTION ANEMIA HYPERTENSION DIABETES MELLITUS CHRONIC OSTEOARTHRITIS PAIN OF KNEES BILATERALLY DEPRESSION WITH PSYCHOSIS INSOMNIA HIP FRACTURE - FEMUR XRAY -IMPRESSION: Comminuted intertrochanteric fracture left femur. DR. CESPEDES TO TAKE PATIENT TO SURGERY TONIGHT. PHYSICAL THERAPY RECOMMENDATIONS PER DR. CESPEDES. PT REPORTS THAT SHE WOULD LIKE TO GO TO THE HEALTHCARE SIDE OF [facility] ON DISCHARGE FOR HER REHAB, THEN WHEN BETTER GO BACK TO ASSISTED LIVING. URINARY TRACT INFECTION - RESUME ORAL ANTIBIOTICS IN THE MORNING - PT WILL RECEIVE IV ANTIBIOTICS PRE-OP. ANEMIA - PT TO HAVE BLOOD TRANSFUSION TODAY HYPERTENSION - RESUME HOME MEDS TONIGHT. DIABETES MELLITUS - WILL PLACE ON SLIDING SCALE, RESUME DIRECTOR HEALTH INSULIN - START LEVEMIR TONIGHT. CHRONIC OSTEOARTHRITIS PAIN OF KNEES BILATERALLY - RESUME NAPROXEN TODAY. DEPRESSION WITH PSYCHOSIS - ON SEROQUEL AND CYMBALTA - RESUMED. DVT PROPHYLAXIS - STARTED ON LOVENOX. GI PROPHYLAXIS - PPI Clinical Quality Measures DVT/VTE Risk/Contraindication: Risk Factor Score Per Nursin RFS Level Per Nursing on Admit: 4+=Very High SHWETA FRANKS MD Apr 10, 2017 08:28
[2017-04-10] MEDS ORDERED: NON-FORMULARY MEDICATION 1 EA EA (Naproxen Sodium (Aleve) 220 MG) PO SCH (09:00)
[2017-04-10] MEDS: CARVEDILOL 12.5 MG (COREG) TABLET PO SCH ×2 (09:10→20:30)
[2017-04-10] MEDS: LACTOBACILLUS Acidoph/Bulgar (LACTINEX/FLORANEX) TAB PO SCH ×2 (09:10→20:29)
[2017-04-10] MEDS: ARTIFICAL TEARS 0.4 ML UNIT DOSE (REFRESH PLUS) OU SCH ×3 (09:10→20:30)
[2017-04-10] MEDS: NS IV 1000 ML 1,000 ML IV SCH ×2 (09:10→19:13)
[2017-04-10] MEDS: hydrALAZINE (APRESOLINE) 25 MG TAB PO SCH ×3 (09:14→21:03)
[2017-04-10] MEDS ORDERED: ACETAMINOPHEN 500 MG TAB (TYLENOL) PO NR (10:00)
[2017-04-10] MEDS ORDERED: diphenhydrAMINE 25 MG TAB (BENADRYL) PO NR (10:00)
--- NOTE | 2017-04-10 10:02 | Physical Therapy Progress Note ---
Therapy Progress Note Patient declined PT this a.m. due to decreased Hgb and feeling "sedated". Patient explained to PT she has orthostatic issues prior and she did not want to chance having an episode. RN notified. Patient will receive PRBC this a.m. 1 ref MIKY BREAUX PT Apr 10, 2017 10:01
--- NOTE | 2017-04-10 10:17 | OPERATIVE REPORT ---
PROCEDURE PHYSICIAN: MARTHA PALMA DATE OF PROCEDURE: 04/09/2017 SURGEON: Dr. Palma, WATER SUPERINTENDENT: KRISH Andersen. This is a medically necessary procedure and conventions assistant is necessary for retraction of vital neurovascular structures. Without an conventions assistant, the procedure would not be possible. PREOPERATIVE DIAGNOSES: Displaced comminuted left intertrochanteric hip fracture. POSTOPERATIVE DIAGNOSIS: Displaced comminuted left intertrochanteric hip fracture. PROCEDURE PERFORMED: Placement of an intramedullary nail left hip. COMPLICATIONS: None. SPECIMEN SENT: None. ESTIMATED BLOOD LOSS: Minimal. ANESTHESIA: General endotracheal tube anesthesia with local anesthetic. 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 She experienced severe left hip pain. She was unable to bear weight. Imaging did demonstrate a comminuted intratrochanteric fracture of her left hip. She understood the risks and benefits of the necessity of surgical stabilization and she wished to proceed with surgery. OPERATION: The patient was identified by name on wrist band in the preoperative holding area. Her operative site was signed, consent was signed. SCDs were placed. Antibiotics were started. She was taken operating room theater, placed under general endotracheal tube anesthesia and transferred to the operating room table. Her unaffected right lower extremity was abducted and externally rotated. Her affected left lower extremity was placed in her in-line traction; it was also adductor. The patient's arms were crossed across her chest. She was prepped and draped in the usual sterile fashion. A formal timeout was conducted. We did make an incision proximal to the greater trochanter and advanced a wire to the starting point in the piriformis fossa. I then ream the cortex and I passed a ball-tip reaming wire to the intramedullary canal. With some difficulty we were able to pass this ball tip wire through the proximal and then the distal fragment. We then reamed the intramedullary canal to approximately 12 mm. Chose the appropriate length 11 mm TFN nail and carefully passed it, thereby reducing the fracture fragments. At this point once the nail was fully seated I made an incision over the lateral aspect of the proximal femur and placed a guidewire through the middle portion of the femoral neck and then the femoral head. I measured the appropriate length of the helical blade I drilled the lateral cortex. I then seated the helical blade into position. I then locked it to rotation I removed all of the aiming arm apparatus and obtained a final AP and lateral x-ray of the hip and the fracture was well aligned and the hardware was in place. I then turned my attention to placement of static lock distally. I used perfect [place] technique utilizing fluoroscopy. I placed the screw from the medial cortex to the lateral cortex. At this point, I obtained orthogonal views of the distal femur and all hardware was in good position. Therefore, I irrigated the wound and I closed it utilizing 0 Vicryl, followed by rosmery for the skin. I applied dressings. I took the patient in supine position to the PACU where she awoke without incident. She tolerated this procedure very well. PLAN: Plan at this time is to get the patient out of bed on postop day one. We will place her on DVT prophylaxis per medicine. She will be admitted to medicine for further treatment of her medical ailments. Please note instrumentation utilized for this was [employer] TFN. Job ID: [id number] Dictated Date: 04/09/2017 20:00:03 Maternal Child Nurse Date: 04/10/2017 10:05:40 / freda
[2017-04-10] MEDS: oxyCODONE/APAP 5/325MG (PERCOCET 5) TABLET PO PRN ×2 (10:54→15:40)
[2017-04-10] MEDS ORDERED: FUROSEMIDE 40 MG/4 ML INJ (LASIX) IVP NR (12:00)
[2017-04-10 12:28] LABS: POTASSIUM 5.6 MMOL/L (3.6-5.0)
[2017-04-10] MEDS: glipiZIDE 5 MG (GLUCOTROL) TAB PO SCH (13:44)
--- NOTE | 2017-04-10 14:37 | Physical Therapy Evaluation ---
PT Evaluation-General Medical Diagnosis Admission Date Apr 09, 2017 at 08:50 Medical Diagnosis: left hip fracture Onset Date: Apr 09, 2017 Therapy Diagnosis Therapy Diagnosis: generalized weakness and debility Height/Weight Height (Feet): 5 Height (Inches): 2.00 Weight (Pounds): 227 Weight (Ounces): 6.0 Precautions Precautions/Isolations: Fall Prevention, Standard Precautions Weight Bear Status Weight Bearing Restriction: Weight Bearing/Tolerated Location Restriction: L LE Referral Physician: Louie Reason for Referral: Evaluation/Treatment Medical History Pertinent Medical History: CAD, DM, HTN, Neuropathy Additional Medical History anemia Current History fell while walking to the bathroom at the assisted living facility Reviewed History: Yes Social History Home: Assisted Living Current Living Status: Alone Entry Into Home: Level Entry Prior/Core FIM Prior Level of Function Functional [place] Measure 0=Not Assessed/NA 4=Minimal Assistance 1=Total Assistance 5=Supervision or Setup 2=Maximal Assistance 6=Modified [place] 3=Moderate Assistance 7=Complete [place] Bed Mobility: 6 Transfers (B,C,W/C) (FIM): 6 Gait: 6 PT Evaluation-Current Subjective Patient agrees to PT. Patient is currently receiving PRBC due to decreased Hgb. Pain Numeric Pain Scale: 5-Moderate Pain Location: Left Location Body Site: Hip Pain Description: Acute Objective Patient Orientation: Normal For Age Problem Solving: Fair Attachments: Oxygen, Blanco Catheter, IV ROM/Strength ROM Lower Extremities bilateral LE WNL Strenght Lower Extremities right LE 4/5 grossly left LE 3/5 grossly Integumentary/Posture Integumentary refer to nursing notes Bowel Incontinence: No Bladder Incontinence: Blanco Cath Posture WNL Neuromuscular (Tone, Coordination, Reflexes) refer to nursing notes Sensory Vision: Blind Legally Hearing: Functional Sensation Right Lower Extremit: Impaired Sensation Left Lower Extremity: Impaired Transfers Functional [place] Measure 0=Not Assessed/NA 4=Minimal Assistance 1=Total Assistance 5=Supervision or Setup 2=Maximal Assistance 6=Modified [place] 3=Moderate Assistance 7=Complete [place] Transfers (B, C, W/C) (FIM): 1 Scootin Rollin Supine to/from Sit: 1 Patient unable to stand at this time due to dizziness;patient is unsafe Gait Mode of Locomotion: Walk Anticipated Mode of Locomotion: Walk Balance Sitting Static: Normal Sitting Dynamic: Normal Assessment/Needs 81 y.o. female, will benefit from skilled PT to address functional strength and mobility to improve current LOF and to safely return to AL at maximum LOF. Rehab Potential: Good PT Pocket Creaser Goals Pocket Creaser Goals PT Longterm Goals Time Frame: May 02, 2017 Transfers (B,C,W/C) (FIM): 6 Gait (FIM): 2 Gait distance (FIM): 0=447-21 ft Distance: 125' Gait Level of Assist: 6 Gait Assistive Device: FWW PT Plan Problem List Problem List: Activity Tolerance, Functional Strength, Balance, Gait, Transfer , Bed Mobility Treatment/Plan Treatment Plan: Continue Plan of Care Treatment Plan: Bed Mobility, Education, Functional Activity Anh, Functional Strength, Gait, Safety, Therapeutic Exercise, Transfers Treatment Duration: May 02, 2017 Frequency: Twice Daily (M-F and once Sat.) Estimated Hrs Per Day: .5 hour per day Patient and/or Family Agrees t: Yes Safety Risks/Education Patient Education: Safety Issues Teaching Recipient: Patient Teaching Methods: Discussion Response to Teaching: Verbalize Understanding Discharge Recommendations Therapy D/C Recommendations: Acute Rehab, Group Home (TCU/NH) Time/GCodes Time In: 1317 Time Out: 1327 Total Billed Treatment Time: 10 Total Billed Treatment 1 visit EVLowC 10 min MIKY BREAUX PT Apr 10, 2017 14:37
--- NOTE | 2017-04-10 16:09 | Occupational Therapy Eval ---
OT Evaluation-General/PLF Medical Diagnosis Admission Date Apr 09, 2017 at 08:50 Medical Diagnosis: left hip fracture Onset Date: Apr 09, 2017 Therapy Diagnosis Therapy Diagnosis: decr self care, weakness, decr activ tolerance, decr vision , decr funct mob Height/Weight Height (Feet): 5 Height (Inches): 2.00 Weight (Pounds): 227 Weight (Ounces): 6.0 Precautions Precautions/Isolations: Fall Prevention, Standard Precautions Safety Interventions: None Weight Bear Status Weight Bearing Restriction: Weight Bearing/Tolerated Location Restriction: L LINH Referral Physician: Louie Referral Reason: Evaluation/Treatment Medical History Pertinent Medical History: Arthritis, CAD, DM, GERD, HTN, [place] (per patient report, 5 years ago), Neuropathy (LEs but not UEs), OA (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 Anxiety, depression with psychosis, insomnia. Dizziness, orthostatic hypotension. Has been using O2 at 2L/min, 24/7 for 3 years. Pt reported macular degeneration and cataracts that have not been removed. Current History Got up to go to the bathroom and sat EOB for 5-10 minutes, then got up and fell. L hip IM nail on 04-09-17 with WBAT Reviewed History: Yes Social History Home: Assisted Living ([facility] [employer]) Current Living Status: Alone Entry Into Home: Level Entry Apartment is on second floor but there is an elevator available ADL-Prior Level of Function ADL PLOF Comments Pt reported that she lived in an assisted living in [place] for 5 years but missed her friends so she moved back to a higher level of care. She has managed her basic ADLs but needs help with medication management, insulin and diet, housekeeping, meal prep. She does not drive bathrooms are accessible, with walk in shower, tall toilet with grab bar, hand held shower, grab bars in shower. 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 They worked on my hands and coordination." OT explained focus on ADLs after hip fx. Appearance Alert, cooperative Mental Status/Objective Patient Orientation: Person, Place, Situation Attachments: Central Line, Blanco Catheter, IV, Oxygen Current Glasses/Contacts: Yes (reports starting to use large print, has special light, magnifier) Hearing Aids: No Dentures/Partials: No Hand Dominance: Right Upper Extremity ROM L shoulder limited to about 30 degrees flex/abd. R shoulder to about 90 degreed flex/abd. Pt reported rotator cuff injuries and joint replacement elbow. Arthritic changes in hands Upper Extremity Strength Grossly 4/5 bilat but reluctant to participate ADL-Treatment ADL-Current Pt has not been up out of bed yet. Able to get a drink of water Functional [place] Measure 0=Not Assessed/NA 4=Minimal Assistance 1=Total Assistance 5=Supervision or Setup 2=Maximal Assistance 6=Modified [place] 3=Moderate Assistance 7=Complete IndependenceIRFPAI Quality Coding Scale 6 Independent with activity with or without an assistive device 5 Patient requires set up or clean up by helper. Patient completes activity by themselves 4 Supervision or touching assist (CGA). [place] provide cues , steadying assist 3 The helper provides less than half the effort to complete the activity 2 The helper provides more than half the effort to complete the activity 1 Dependent. The helper does all the effort to complete an activity 7 Patient refused to complete or attempt activity 9 The patient did not perform the activity before the current illness or injury 88 Not attempted due to Medical conditions or safety concerns Education OT Patient Education: Purpose of tx/functional activities, Rehab process Teaching Recipient: Patient Teaching Methods: Discussion Response to Teaching: Reinforcement Needed (Does not understand difference between working on hand strength/coord and ADLs) OT [facility] Goals Chief Controller Goals Time Frame: May 01, 2017 Eating (FIM): 6 Grooming(FIM): 5 Bathing(FIM): 5 Upper Body Dressing(FIM): 6 Lower Body Dressing(FIM): 6 Toileting(FIM): 6 Toilet/Commode Transfer(FIM): 6 Shower Transfer(FIM): 5 Additional Goals: 1-Demonstrate ADL Tasks, 2-Verbalize Understanding, 3- ImproveStrength/Anh 1=Demonstrate adherence to instructed precautions during ADL tasks. 2=Patient will verbalize/demonstrate understanding of assistive devices/ modifications for ADL. 3=Patient will improve strength/tolerance for activity to enable patient to perform ADL's. OT Education/Plan Problem List/Assessment Assessment: Decreased Activ Tolerance, Decreased UE Strength, Dependent Transfers, Impaired Funct Balance, Impaired Self-Care Skills, Visual-Perceptual Deficit Pt would benefit from skilled OT to increase her independence in basic self care to allow her to safely return to her home to live independently Discharge Recommendations Plan/Recommendations: Continue POC Target Placement Because pt recently completed OT at [facility], she may be more comfortable returning there for continued therapy, since she has a relationship with therapy staff Treatment Plan/Plan of Care Treatment,Training & Education: Yes Patient would benefit from OT for education, treatment and training to promote independence in ADL's, mobility, safety and/or upper extremity function for ADL' s. Plan of Care: ADL Retraining, Functional Mobility, UE Funct Exercise/Act, UE Neuromus Re-Ed/Coord, Visual/Perceptual Retrain Treatment Duration: May 01, 2017 Frequency: Daily Estimated Hrs Per Day: .5 hour per day Rehab Potential: Good Time/GCodes Start Time: 11:45 Stop Time: 12:00 Total Time Billed (hr/min): 15 Billed Treatment Time visit, evaluation high intensity JACINTA CHOW OT Apr 10, 2017 16:09
[2017-04-10] MEDS: DULoxetine 30 MG (CYMBALTA) CAP PO SCH (20:29)
[2017-04-10] MEDS: MELATONIN 3 MG TABLET PO SCH (20:36)
[2017-04-10] MEDS: QUEtiapine 25 MG (SEROquel) TAB IMMEDIATE RELEASE PO SCH (20:38)
[2017-04-10] MEDS: inSUlin DETERMIR 1 UNIT/0.01 ML (LEVEMIR) CHARGE PER UNIT SQ SCH (21:03)
[2017-04-11] VITALS (10 sets, daily range): BP systolic 117–167; BP diastolic 61–72
[2017-04-11] MEDS: NS IV 1000 ML 1,000 ML IV SCH ×2 (01:20→13:10)
[2017-04-11] MEDS: oxyCODONE/APAP 5/325MG (PERCOCET 5) TABLET PO PRN ×4 (04:30→20:53)
[2017-04-11 05:05] LABS: MEAN PLATELET VOLUME 13.6 FL (7.4-10.4); RED BLOOD COUNT 2.76 10^6/uL (4.35-5.85); RED CELL DISTRIBUTION WIDTH 13.6 % (10.0-14.5); WHITE BLOOD COUNT 10.9 10^3/uL (4.3-11.0)
[2017-04-11 05:26] LABS: ALBUMIN 3.1 GM/DL (3.2-4.5); BILIRUBIN,TOTAL 0.3 MG/DL (0.1-1.0); CALCIUM 8.3 MG/DL (8.5-10.1); CREATININE SERUM 1.62 MG/DL (0.60-1.30); POTASSIUM 4.8 MMOL/L (3.6-5.0); TOTAL PROTEIN 5.7 GM/DL (6.4-8.2)
[2017-04-11] MEDS: PANTOPRAZOLE 40 MG (PROTONIX) TAB PO SCH (06:08)
[2017-04-11] MEDS: AUGMENTIN 500 MG TAB (AMOXICILLIN/CLAVULANATE) PO SCH ×2 (06:08→17:42)
[2017-04-11] MEDS: inSUlin (REGULAR) HUMAN 1 UNIT/0.01 ML (CHARGE PER UNIT) SC SCH ×4 (06:08→22:00)
[2017-04-11] MEDS: LEVOTHYROXINE 50 MCG (LEVOTHROID) TAB PO SCH (06:09)
[2017-04-11] MEDS: NAPROXEN 250 MG (NAPROSYN) TABLET PO SCH ×2 (06:09→17:42)
--- NOTE | 2017-04-11 06:59 | Progress Note (SOAP) ---
Subjective Date Seen by Provider: Apr 11, 2017 Time Seen by Provider: 06:56 Subjective/Events-last exam BRITTNEE. Doing very well. She is comfortable. she tells me they have had a difficult time with IV access. therefore she has not been OOB yet. she has no LE numbness or tingling. she denies SOB/CP/N/V. Objective Exam Vital Signs Date Time Temp Pulse Resp B/P (MAP) Pulse Ox O2 Delivery O2 Flow Rate FiO2 04/11/17 00:21 98.0 78 18 167/72 98 Nasal Cannula 3.50 04/10/17 21:00 Nasal Cannula 3.50 04/10/17 20:13 97.5 80 20 145/67 97 Nasal Cannula 3.50 04/10/17 18:10 97.8 83 123/57 04/10/17 16:17 97.4 84 18 141/67 Nasal Cannula 3.50 04/10/17 15:58 98.0 80 133/61 04/10/17 15:42 97.4 84 141/67 04/10/17 14:30 98.5 86 172/71 04/10/17 11:54 97.0 79 16 154/60 Nasal Cannula 3.50 04/10/17 11:52 97.0 79 154/60 04/10/17 11:37 97.4 77 184/65 04/10/17 08:00 97.6 78 16 167/70 99 Nasal Cannula 4.00 04/10/17 08:00 Nasal Cannula 3.50 04/10/17 07:34 Nasal Cannula 4.00 I & O 04/11/17 07:00 Intake Total 3080 ml Output Total 925 ml Balance 2155 ml Capillary Refill : Less Than 3 SecondsLess Than 3 Seconds General Appearance: No Apparent Distress Extremity: Other (5/5 alix ankle dorsiflexion, wound CDI, 2/4 DP, PT, NVSI) Results Lab Laboratory Tests 04/10/17 12:10: Sodium Level 133L, Potassium Level 5.6H, Chloride Level 103, Carbon Dioxide Level 20L, Anion Gap 10 04/10/17 15:03: Glucometer 168H 04/10/17 15:34: Glucometer 174H 04/10/17 20:55: Glucometer 95 04/11/17 04:37: White Blood Count 10.9, Red Blood Count 2.76L, Hemoglobin 7.9L, Hematocrit 25L, Mean Corpuscular Volume 89, Mean Corpuscular Hemoglobin 29, Mean Corpuscular Hemoglobin Concent 32, Red Cell Distribution Width 13.6, Platelet Count 95L, Mean Platelet Volume 13.6H, Sodium Level 135, Potassium Level 4.8, Chloride Level 104, Carbon Dioxide Level 24, Anion Gap 7, Blood Urea Nitrogen 37H, Creatinine 1.62H, Estimat Glomerular Filtration Rate 30, BUN/Creatinine Ratio 23 , Glucose Level 162H, Calcium Level 8.3L, Total Bilirubin 0.3, Aspartate Amino Transf (AST/SGOT) 38H, Alanine Aminotransferase (ALT/SGPT) 10, Alkaline Phosphatase 67, Total Protein 5.7L, Albumin 3.1L Microbiology 04/09/17 MRSA Screen - Final, Complete MRSA not isolated Assessment/Plan Assessment/Plan Assess & Plan/Chief Complaint ASSESSMENT: s/p IM repair of left IT hip fracture PLAN: lovenox DVT prophylaxis per medicine with SCDs pain control OOB today in PT-WBAT ok to dc to rehab when ok with medicine Clinical Quality Measures DVT/VTE Risk/Contraindication: Risk Factor Score Per Nursin RFS Level Per Nursing on Admit: 4+=Very High MARTHA CESPEDES DO Apr 11, 2017 06:59
--- NOTE | 2017-04-11 07:33 | Progress Note (SOAP) ---
Subjective Date Seen by Provider: Apr 11, 2017 Time Seen by Provider: 07:33 Subjective/Events-last exam PT REPORTS THAT SHE IS STILL QUITE FATIGUED, SHE DENIES CHEST PAIN, DENIES NAUSEA, ABDOMINAL PAIN. NO BOWEL MOVEMENT OF YET TODAY. SHE DOES HAVE PAIN IN HER HIP, HOWEVER SHE STATES THAT HER PAIN HAS BEEN WELL CONTROLLED. Review of Systems General: No Chills, Fatigue HEENT: No Head Aches Pulmonary: No Dyspnea, No Cough Cardiovascular: No: Chest Pain, Palpitations Gastrointestinal: Constipation, No: Abdominal Pain, Nausea Musculoskeletal: leg pain (LEFT HIP, BILATERAL KNEES) Neurological: Weakness, No: Confusion Objective Exam Vital Signs Date Time Temp Pulse Resp B/P (MAP) Pulse Ox O2 Delivery O2 Flow Rate FiO2 04/11/17 07:03 98 Nasal Cannula 3.50 04/11/17 00:21 98.0 78 18 167/72 98 Nasal Cannula 3.50 04/10/17 21:00 Nasal Cannula 3.50 04/10/17 20:13 97.5 80 20 145/67 97 Nasal Cannula 3.50 04/10/17 18:10 97.8 83 123/57 04/10/17 16:17 97.4 84 18 141/67 Nasal Cannula 3.50 04/10/17 15:58 98.0 80 133/61 04/10/17 15:42 97.4 84 141/67 04/10/17 14:30 98.5 86 172/71 04/10/17 11:54 97.0 79 16 154/60 Nasal Cannula 3.50 04/10/17 11:52 97.0 79 154/60 04/10/17 11:37 97.4 77 184/65 04/10/17 08:00 97.6 78 16 167/70 99 Nasal Cannula 4.00 04/10/17 08:00 Nasal Cannula 3.50 04/10/17 07:34 Nasal Cannula 4.00 I & O 04/11/17 07:00 Intake Total 3280 ml Output Total 1475 ml Balance 1805 ml Capillary Refill : Less Than 3 SecondsLess Than 3 Seconds General Appearance: No Apparent Distress, WD/WN HEENT: PERRL/EOMI Neck: Supple Respiratory: Chest Non Tender, Lungs Clear, Normal Breath Sounds Cardiovascular: Regular Rate, Rhythm Gastrointestinal: normal bowel sounds, non tender, soft, no organomegaly, no pulsatile mass Extremity: Pedal Edema, Other (BLOOD ON BANDAGE LATERAL LEFT HIP) Neurologic/Psychiatric: Alert, Oriented x3, No Motor/Sensory Deficits, Normal Mood/Affect Lymphatic: No Adenopathy Results Lab Laboratory Tests 04/10/17 12:10: Sodium Level 133L, Potassium Level 5.6H, Chloride Level 103, Carbon Dioxide Level 20L, Anion Gap 10 04/10/17 15:03: Glucometer 168H 04/10/17 15:34: Glucometer 174H 04/10/17 20:55: Glucometer 95 04/11/17 04:37: White Blood Count 10.9, Red Blood Count 2.76L, Hemoglobin 7.9L, Hematocrit 25L, Mean Corpuscular Volume 89, Mean Corpuscular Hemoglobin 29, Mean Corpuscular Hemoglobin Concent 32, Red Cell Distribution Width 13.6, Platelet Count 95L, Mean Platelet Volume 13.6H, Sodium Level 135, Potassium Level 4.8, Chloride Level 104, Carbon Dioxide Level 24, Anion Gap 7, Blood Urea Nitrogen 37H, Creatinine 1.62H, Estimat Glomerular Filtration Rate 30, BUN/Creatinine Ratio 23 , Glucose Level 162H, Calcium Level 8.3L, Total Bilirubin 0.3, Aspartate Amino Transf (AST/SGOT) 38H, Alanine Aminotransferase (ALT/SGPT) 10, Alkaline Phosphatase 67, Total Protein 5.7L, Albumin 3.1L Microbiology 04/09/17 MRSA Screen - Final, Complete MRSA not isolated Assessment/Plan Assessment/Plan Assess & Plan/Chief Complaint COMMINUTED INTERTROCHANTERIC LEFT FEMUR FRACTURE URINARY TRACT INFECTION ANEMIA HYPERTENSION DIABETES MELLITUS CHRONIC OSTEOARTHRITIS PAIN OF KNEES BILATERALLY DEPRESSION WITH PSYCHOSIS INSOMNIA HIP FRACTURE - FEMUR XRAY -IMPRESSION: Comminuted intertrochanteric fracture left femur. DR. CESPEDES TO TAKE PATIENT TO SURGERY TONIGHT. PHYSICAL THERAPY RECOMMENDATIONS PER DR. CESPEDES. PT REPORTS THAT SHE WOULD LIKE TO GO [facility] ON DISCHARGE FOR HER REHAB, THEN WHEN BETTER GO BACK TO ASSISTED LIVING. URINARY TRACT INFECTION - RESUME ORAL ANTIBIOTICS X 3 MORE DAYS. ANEMIA - HGB 7.9 THIS MORNING DESITE 2 UNITS OF BLOOD YESTERDAY. PT TO HAVE BLOOD TRANSFUSION TODAY HYPERTENSION - RESUMED. DIABETES MELLITUS - PT IS ON SLIDING SCALE, RESUMED RETIREMENT INSULIN. CHRONIC OSTEOARTHRITIS PAIN OF KNEES BILATERALLY - RESUMED NAPROXEN. DEPRESSION WITH PSYCHOSIS - ON SEROQUEL AND CYMBALTA - RESUMED. DVT PROPHYLAXIS - STARTED ON LOVENOX TODAY IF HEMOCCULT IS NEGATIVE. GI PROPHYLAXIS - PPI Clinical Quality Measures DVT/VTE Risk/Contraindication: Risk Factor Score Per Nursin RFS Level Per Nursing on Admit: 4+=Very High SHWETA FRANKS MD Apr 11, 2017 07:33
[2017-04-11] MEDS: ASPIRIN E.C. 325 MG (ECOTRIN) TABLET PO SCH (08:26)
[2017-04-11] MEDS: LACTOBACILLUS Acidoph/Bulgar (LACTINEX/FLORANEX) TAB PO SCH ×2 (08:26→20:54)
[2017-04-11] MEDS: CARVEDILOL 12.5 MG (COREG) TABLET PO SCH ×2 (08:26→20:54)
[2017-04-11] MEDS: hydrALAZINE (APRESOLINE) 25 MG TAB PO SCH ×3 (08:27→20:53)
[2017-04-11] MEDS: CLOPIDOGREL 75 MG (PLAVIX) TABLET PO SCH (08:27)
[2017-04-11] MEDS: ARTIFICAL TEARS 0.4 ML UNIT DOSE (REFRESH PLUS) OU SCH ×3 (09:32→20:52)
[2017-04-11] MEDS: DOCUSATE SODIUM 100 MG (COLACE) CAP PO SCH ×2 (09:38→20:53)
--- NOTE | 2017-04-11 09:51 | Physical Therapy Progress Note ---
Therapy Progress Note Attempted PT visit at 850 and pt just receiving pain meds and wanted to give them a chance to set in. Returned a 945 and pt awaiting procedure and nursing recommended to hold off on PT at this time. In addition, pt to receive blood this morning. Will recheck later today. RICHARDSON MACARIO PT Apr 11, 2017 09:51
[2017-04-11] MEDS ORDERED: diphenhydrAMINE 25 MG TAB (BENADRYL) PO NR (10:00)
[2017-04-11] MEDS ORDERED: ACETAMINOPHEN 500 MG TAB (TYLENOL) PO NR (10:00)
--- NOTE | 2017-04-11 10:49 | Diagnostic Imaging Report ---
2 views of the left femur. INDICATION: Post internal fixation. FINDINGS: There is a mildly displaced subtrochanteric fracture seen of the internal fixation with interlocked intramedullary nail. There is no fracture in the mid or distal left femur. IMPRESSION: Internal fixation with interlocked intramedullary nail in the left femur with remaining mild subtrochanteric fracture without significant angulation. Dictated by: Dictated on workstation # [id number]
[2017-04-11] MEDS: glipiZIDE 5 MG (GLUCOTROL) TAB PO SCH (11:29)
--- NOTE | 2017-04-11 11:31 | Diagnostic Imaging Report ---
EXAMINATION: 2 views of the right hip. INDICATION: Post internal fixation for fracture. FINDINGS: There is internal fixation hardware seen in the femur with intramedullary nail and locking nail through the femoral neck. The fracture involving the intertrochanteric and subtrochanteric region of the left femur is again seen with improvement in the degree of displacement seen on preoperative radiograph. There is no angulation seen. IMPRESSION: Internal fixation of subtrochanteric fracture of the left femur with decreased fracture displacement compared to the prior exam. Dictated by: Dictated on workstation # [id number]
[2017-04-11] MEDS ORDERED: FUROSEMIDE 40 MG/4 ML INJ (LASIX) IVP NR (13:00)
--- NOTE | 2017-04-11 13:23 | Physical Therapy Daily Note ---
PT Daily Note-Current Subjective Agrees to PT to get out of bed and to the chair for lunch. Mental Status Patient Orientation: Person, Place, Time, Situation Attachments: Oxygen, IV Transfers Functional [place] Measure 0=Not Assessed/NA 4=Minimal Assistance 1=Total Assistance 5=Supervision or Setup 2=Maximal Assistance 6=Modified [place] 3=Moderate Assistance 7=Complete IndependenceIRFPAI Quality Coding Scale 6 Independent with activity with or without an assistive device 5 Patient requires set up or clean up by helper. Patient completes activity by themselves 4 Supervision or touching assist (CGA). Miles provide cues , steadying assist 3 The helper provides less than half the effort to complete the activity 2 The helper provides more than half the effort to complete the activity 1 Dependent. The helper does all the effort to complete an activity 7 Patient refused to complete or attempt activity 9 The patient did not perform the activity before the current illness or injury 88 Not attempted due to Medical conditions or safety concerns Transfers (B, C, W/C) (FIM): 3 Supine to/from Sit: 3 Sit to/from Stand: 4 Bed to/from Chair: 4 (very close CGA and skilled cues for safety. ) Sit to stand x 2 at EOB with education and cues for safety and upright posture. Pt stood once and began to take a step and then just dropped to the chair. Educated the patient on the need for safe sitting and risk of further fx with dropping to sit. Pt verbalized that she thought it was safer to drop to the seat. Pt then stood to transfer to the chair with FWW with min assist to transfer and constant cues for safety and sequencing with the transfer. Pt up in chair with needs met post treatment. Weight Bearing Weight Bearing Restriction: Weight Bearing/Tolerated Location Restriction: L LE Assessment Unsafe with transfers and is impulsive. Tends to sit unexpectedly despite cues not to do so. PT Language Interpreter Goals [place] Goals PT Language Interpreter Goals Time Frame: May 02, 2017 Transfers (B,C,W/C) (FIM): 6 Gait (FIM): 2 Gait distance (FIM): 5=152-96 ft Distance: 125' Gait Level of Assist: 6 Gait Assistive Device: FWW PT Plan Problem List Problem List: Activity Tolerance, Functional Strength Treatment/Plan Treatment Plan: Continue Plan of Care Treatment Plan: Bed Mobility, Education, Functional Activity Anh, Functional Strength, Gait, Safety, Therapeutic Exercise, Transfers Treatment Duration: May 02, 2017 Frequency: Twice Daily (M-F and once Sat.) Estimated Hrs Per Day: .5 hour per day Patient and/or Family Agrees t: Yes Safety Risks/Education Patient Education: Transfer Techniques, Safety Issues Teaching Recipient: Patient Teaching Methods: Demonstration, Discussion Response to Teaching: Reinforcement Needed Time/GCodes Time In: 1255 Time Out: 1320 Total Billed Treatment Time: 25 Total Billed Treatment visit FA 25 RICHARDSON MACARIO PT Apr 11, 2017 13:23
--- NOTE | 2017-04-11 16:16 | Occupational Ther Daily Note ---
OT Current Status-Daily Note Subjective Pt seen in room, up in recliner, agreeable to OT. Pt reported that her "pain is controlled now." Appearance Alert, cooperative but drowsy Mental Status/Objective Functional [place] Measure 0=Not Assessed/NA 4=Minimal Assistance 1=Total Assistance 5=Supervision or Setup 2=Maximal Assistance 6=Modified [place] 3=Moderate Assistance 7=Complete [place] Other Treatment Pt agreeable to UE exercise (did not want to do any ADLs). Pt education 4 different bilat UE exercises to increase range at shoulder and strengthen arms to help with transfers and ADLs. Pt was able to follow verbal directions due to decreased vision. She needed some assistance in tracking repetitions because she fell asleep briefly several times during exercises. Pt encouraged to do at least one exercise on her own in her room, to continue to strengthen arms. Pt left up in recliner, all needs met. Education OT Patient Education: Exercise program Teaching Recipient: Patient Teaching Methods: Discussion Response to Teaching: Return Demonstration, Reinforcement Needed OT Short Term Goals Short Term Goals 1=Demonstrate adherence to instructed precautions during ADL tasks. 2=Patient will verbalize/demonstrate understanding of assistive devices/ modifications for ADL. 3=Patient will improve strength/tolerance for activity to enable patient to perform ADL's. OT Alf Goals Alf Goals Time Frame: May 01, 2017 Eating (FIM): 6 Grooming(FIM): 5 Bathing(FIM): 5 Upper Body Dressing(FIM): 6 Lower Body Dressing(FIM): 6 Toileting(FIM): 6 Toilet/Commode Transfer(FIM): 6 Shower Transfer(FIM): 5 Additional Goals: 1-Demonstrate ADL Tasks, 2-Verbalize Understanding, 3- ImproveStrength/Anh 1=Demonstrate adherence to instructed precautions during ADL tasks. 2=Patient will verbalize/demonstrate understanding of assistive devices/ modifications for ADL. 3=Patient will improve strength/tolerance for activity to enable patient to perform ADL's. OT Education/Plan Problem List/Assessment Pt would benefit from skilled OT to increase her independence in basic self care to allow her to safely return to her home to live independently Discharge Recommendations Plan/Recommendations: Continue POC Treatment Plan/Plan of Care Patient would benefit from OT for education, treatment and training to promote independence in ADL's, mobility, safety and/or upper extremity function for ADL' s. Plan of Care: ADL Retraining, Functional Mobility, UE Funct Exercise/Act, UE Neuromus Re-Ed/Coord, Visual/Perceptual Retrain Treatment Duration: May 01, 2017 Frequency: Daily Estimated Hrs Per Day: .5 hour per day Rehab Potential: Good Time/GCodes Start Time: 14:10 Stop Time: 14:20 Total Time Billed (hr/min): 10 Billed Treatment Time visit, 10 minutes exercise JACINTA CHOW OT Apr 11, 2017 16:16
[2017-04-11] MEDS: ENOXAPARIN 30 MG/0.3 ML (LOVENOX) SYR SC SCH (17:42)
[2017-04-11] MEDS: ACETAMINOPHEN 500 MG TAB (TYLENOL) PO SCH (20:53)
[2017-04-11] MEDS: DULoxetine 30 MG (CYMBALTA) CAP PO SCH (20:53)
[2017-04-11] MEDS: QUEtiapine 25 MG (SEROquel) TAB IMMEDIATE RELEASE PO SCH (20:54)
[2017-04-11] MEDS: MELATONIN 3 MG TABLET PO SCH (20:54)
[2017-04-11] MEDS: inSUlin DETERMIR 1 UNIT/0.01 ML (LEVEMIR) CHARGE PER UNIT SQ SCH (22:14)
[2017-04-12 00:20] VITALS: BP 169/72
[2017-04-12] MEDS: NS IV 1000 ML 1,000 ML IV SCH ×4 (00:59→23:19)
[2017-04-12] MEDS: NAPROXEN 250 MG (NAPROSYN) TABLET PO SCH ×2 (06:32→17:12)
[2017-04-12] MEDS: PANTOPRAZOLE 40 MG (PROTONIX) TAB PO SCH (06:32)
[2017-04-12] MEDS: LEVOTHYROXINE 50 MCG (LEVOTHROID) TAB PO SCH (06:32)
[2017-04-12] MEDS: oxyCODONE/APAP 5/325MG (PERCOCET 5) TABLET PO PRN (06:32)
[2017-04-12] MEDS: AUGMENTIN 500 MG TAB (AMOXICILLIN/CLAVULANATE) PO SCH ×2 (06:32→17:12)
[2017-04-12] MEDS: inSUlin (REGULAR) HUMAN 1 UNIT/0.01 ML (CHARGE PER UNIT) SC SCH ×4 (06:33→21:15)
[2017-04-12 07:01] LABS: MEAN PLATELET VOLUME 13.9 FL (7.4-10.4); RED BLOOD COUNT 3.19 10^6/uL (4.35-5.85); RED CELL DISTRIBUTION WIDTH 13.9 % (10.0-14.5)
[2017-04-12 07:20] LABS: BILIRUBIN,TOTAL 0.4 MG/DL (0.1-1.0); CALCIUM 8.4 MG/DL (8.5-10.1); CREATININE SERUM 1.22 MG/DL (0.60-1.30); POTASSIUM 5.3 MMOL/L (3.6-5.0); TOTAL PROTEIN 5.7 GM/DL (6.4-8.2)
[2017-04-12 08:00] VITALS: BP 186/49
--- NOTE | 2017-04-12 09:10 | Progress Note (SOAP) ---
Subjective Date Seen by Provider: Apr 12, 2017 Time Seen by Provider: 09:07 Subjective/Events-last exam BRITTNEE. No hip pain. C/p difficulty urinating. Denies numbness or tingling. C/o difficulty transfering. Denies N/V/CP/SOB Objective Exam Vital Signs Date Time Temp Pulse Resp B/P (MAP) Pulse Ox O2 Delivery O2 Flow Rate FiO2 04/12/17 08:00 98.4 79 20 186/49 95 Nasal Cannula 3.00 04/12/17 00:20 98.4 80 18 169/72 91 Room Air 04/11/17 21:00 Nasal Cannula 3.00 04/11/17 20:00 75 139/65 04/11/17 16:00 97.0 70 18 120/67 96 Nasal Cannula 3.50 04/11/17 15:31 97.0 70 18 120/67 96 Nasal Cannula 3.00 04/11/17 13:47 98.4 80 18 117/70 95 Nasal Cannula 3.00 04/11/17 13:36 98.3 76 18 145/64 98 Nasal Cannula 3.50 04/11/17 12:01 98.3 76 18 141/64 99 Nasal Cannula 3.50 04/11/17 09:43 98.8 77 18 141/63 99 Nasal Cannula 3.50 04/11/17 09:30 98.3 76 18 140/61 100 Nasal Cannula 3.50 I & O 04/12/17 06:59 Intake Total 2920 ml Output Total 1200 ml Balance 1720 ml Capillary Refill : Less Than 3 SecondsLess Than 3 Seconds General Appearance: No Apparent Distress Extremity: Other (5/5 motor alix LE, Dressing CDI, 2/4 DP, PT, NVSI) Results Lab Laboratory Tests 04/11/17 11:07: Glucometer 253H 04/11/17 12:21: Lab Scanned Report Transfusion Reaction Form 04/11/17 15:56: Glucometer 138H 04/11/17 16:45: Hemoglobin 10.2#L, Hematocrit 31L 04/11/17 21:47: Glucometer 210H 04/12/17 05:55: Glucometer 183H 04/12/17 06:47: White Blood Count 10.0, Red Blood Count 3.19L, Hemoglobin 9.3L, Hematocrit 28L, Mean Corpuscular Volume 89, Mean Corpuscular Hemoglobin 29, Mean Corpuscular Hemoglobin Concent 33, Red Cell Distribution Width 13.9, Platelet Count 96L, Mean Platelet Volume 13.9H, Sodium Level 134L, Potassium Level 5.3H, Chloride Level 106, Carbon Dioxide Level 18L, Anion Gap 10, Blood Urea Nitrogen 35H, Creatinine 1.22, Estimat Glomerular Filtration Rate 42, BUN/Creatinine Ratio 29 , Glucose Level 174H, Calcium Level 8.4L, Total Bilirubin 0.4, Aspartate Amino Transf (AST/SGOT) 31, Alanine Aminotransferase (ALT/SGPT) 8, Alkaline Phosphatase 67, Total Protein 5.7L, Albumin 3.0L Microbiology 04/09/17 MRSA Screen - Final, Complete MRSA not isolated Assessment/Plan Assessment/Plan Assess & Plan/Chief Complaint ASSESSMENT: s/p IM repair of left IT hip fracture PLAN: lovenox DVT prophylaxis per medicine with SCDs pain control OOB today in PT-[facility] follow h/h straight cath PRN ok to dc to rehab when ok with medicine Clinical Quality Measures DVT/VTE Risk/Contraindication: Risk Factor Score Per Nursin RFS Level Per Nursing on Admit: 4+=Very High MARTHA CESPEDES DO Apr 12, 2017 09:10
[2017-04-12] MEDS: LACTOBACILLUS Acidoph/Bulgar (LACTINEX/FLORANEX) TAB PO SCH ×2 (09:22→21:14)
[2017-04-12] MEDS: CLOPIDOGREL 75 MG (PLAVIX) TABLET PO SCH (09:22)
[2017-04-12] MEDS: ASPIRIN E.C. 325 MG (ECOTRIN) TABLET PO SCH (09:22)
[2017-04-12] MEDS: hydrALAZINE (APRESOLINE) 25 MG TAB PO SCH ×3 (09:23→21:14)
[2017-04-12] MEDS: DOCUSATE SODIUM 100 MG (COLACE) CAP PO SCH ×2 (09:23→21:14)
[2017-04-12] MEDS: ARTIFICAL TEARS 0.4 ML UNIT DOSE (REFRESH PLUS) OU SCH ×3 (09:23→21:14)
[2017-04-12] MEDS: CARVEDILOL 12.5 MG (COREG) TABLET PO SCH ×2 (09:23→21:14)
--- NOTE | 2017-04-12 09:26 | Progress Note (SOAP) ---
Subjective Subjective Date Seen by Provider: Apr 12, 2017 Time Seen by Provider: 09:41 81 yo female with a left hip fracture. Pain is controlled. Pt reporting that she can't pee- does feel full at times -not overly uncomfortable- but mad/ frustrated that she keeps wetting the bed. Bedside bladder scan ~600cc. Pt is on senior living oxygen 2L. Review of Systems General: No Chills, Fatigue HEENT: No Head Aches Pulmonary: No Dyspnea, No Cough Cardiovascular: No: Chest Pain, Palpitations Gastrointestinal: Constipation, No: Abdominal Pain, Nausea Musculoskeletal: leg pain (LEFT HIP, BILATERAL KNEES) Neurological: Weakness, No: Confusion All Other Systems Reviewed All Other Systems Reviewed: Yes Objective Exam Vital Signs Vital Signs Date Time Temp Pulse Resp B/P (MAP) Pulse Ox O2 Delivery O2 Flow Rate FiO2 04/12/17 08:00 98.4 79 20 186/49 95 Nasal Cannula 3.00 04/12/17 00:20 98.4 80 18 169/72 91 Room Air 04/11/17 21:00 Nasal Cannula 3.00 04/11/17 20:00 75 139/65 04/11/17 16:00 97.0 70 18 120/67 96 Nasal Cannula 3.50 04/11/17 15:31 97.0 70 18 120/67 96 Nasal Cannula 3.00 04/11/17 13:47 98.4 80 18 117/70 95 Nasal Cannula 3.00 04/11/17 13:36 98.3 76 18 145/64 98 Nasal Cannula 3.50 04/11/17 12:01 98.3 76 18 141/64 99 Nasal Cannula 3.50 04/11/17 09:43 98.8 77 18 141/63 99 Nasal Cannula 3.50 I & O 04/12/17 07:00 Intake Total 2920 ml Output Total 1200 ml Balance 1720 ml General Appearance: No Apparent Distress Eyes: Bilateral Eye EOMI, Bilateral Eye Normal Inspection, Bilateral Eye PERRL HEENT: PERRL/EOMI Neck: Supple Respiratory: Chest Non Tender, Lungs Clear, Normal Breath Sounds Cardiovascular: Regular Rate, Rhythm Gastrointestinal: Normal Bowel Sounds, Non Tender, Soft Rectal: Deferred Extremity: Other (blood on bandage left hip) Neurologic/Psychiatric: Alert, Oriented x3, No Motor/Sensory Deficits, Normal Mood/Affect Skin: Warm/Dry Lymphatic: No Adenopathy Results Lab Laboratory Tests 04/11/17 11:07: Glucometer 253H 04/11/17 12:21: Lab Scanned Report Transfusion Reaction Form 04/11/17 15:56: Glucometer 138H 04/11/17 16:45: Hemoglobin 10.2#L, Hematocrit 31L 04/11/17 21:47: Glucometer 210H 04/12/17 05:55: Glucometer 183H 04/12/17 06:47: White Blood Count 10.0, Red Blood Count 3.19L, Hemoglobin 9.3L, Hematocrit 28L, Mean Corpuscular Volume 89, Mean Corpuscular Hemoglobin 29, Mean Corpuscular Hemoglobin Concent 33, Red Cell Distribution Width 13.9, Platelet Count 96L, Mean Platelet Volume 13.9H, Sodium Level 134L, Potassium Level 5.3H, Chloride Level 106, Carbon Dioxide Level 18L, Anion Gap 10, Blood Urea Nitrogen 35H, Creatinine 1.22, Estimat Glomerular Filtration Rate 42, BUN/Creatinine Ratio 29 , Glucose Level 174H, Calcium Level 8.4L, Total Bilirubin 0.4, Aspartate Amino Transf (AST/SGOT) 31, Alanine Aminotransferase (ALT/SGPT) 8, Alkaline Phosphatase 67, Total Protein 5.7L, Albumin 3.0L Microbiology 04/09/17 MRSA Screen - Final, Complete MRSA not isolated Assessment/Plan Assessment/Plan Assessment/Plan 81 yo F comminuted intertrochanteric left femur fracture- surgical repair 04/09/[address] Palma- Pt to be OOB. discharge to Rehab - pt [facility] to back assisted living [facility] Acute on chronic anemia- s/p 2 pRBC on 04/10 and 2 pRBC on 04/11- monitor hgb UTI- on augmentin til 04/14/17 chronic hypoxia- obesity hypoventilation likely- 2L oxygen NC HTN- continue coreg, hydralazine DMII -levemir, SSI B, holding glipizide depression with psychosis- cymbalta, seroquel insomnia- melatonin hypothyroidism-continue levothyroxine hyperkalemia- ivf, insulin, lasix prn, kayexelate x1. DVT ppx: lovenox Dispo: need to watch pt's hgb as her med list shows she is on asa, plavix and lovenox. Also nursing reports pt's bandage on her left hip has been changed 5x today. Continue evaluating patient on daily basis- planning to discharge to [facility] when stable. Problems: Clinical Quality Measures DVT/VTE Risk/Contraindication: Risk Factor Score Per Nursin RFS Level Per Nursing on Admit: 4+=Very High JOSSELYN TURNER MD Apr 12, 2017 09:26
--- NOTE | 2017-04-12 10:11 | Physical Therapy Daily Note ---
PT Daily Note-Current Subjective Pt. reclined in bedside chair upon therapist arrival, she denies pain but says she has a lot of swelling in arms and legs and "I can't feel my feet." Mental Status Patient Orientation: Person Attachments: Oxygen, IV Transfers Functional [place] Measure 0=Not Assessed/NA 4=Minimal Assistance 1=Total Assistance 5=Supervision or Setup 2=Maximal Assistance 6=Modified [place] 3=Moderate Assistance 7=Complete IndependenceIRFPAI Quality Coding Scale 6 Independent with activity with or without an assistive device 5 Patient requires set up or clean up by helper. Patient completes activity by themselves 4 Supervision or touching assist (CGA). [place] provide cues , steadying assist 3 The helper provides less than half the effort to complete the activity 2 The helper provides more than half the effort to complete the activity 1 Dependent. The helper does all the effort to complete an activity 7 Patient refused to complete or attempt activity 9 The patient did not perform the activity before the current illness or injury 88 Not attempted due to Medical conditions or safety concerns Transfers (B, C, W/C) (FIM): 3 Sit to/from Stand: 3 chair to commode: mod A Weight Bearing Weight Bearing Restriction: Weight Bearing/Tolerated Location Restriction: L LE Exercises Supine Ex: Straight leg raise, Hip abd/add Supine Reps: 10 Seated Therapy Exercises: Ankle pumps, Long arc quads, Hamstring Curls, Hip abd /add Seated Reps: 15 Treatments leg exercises, [facility] Assessment Current Status: Fair Progress Pt. did well with leg exercises, assist needed with SLR and hip abd on the L. Pt. was incontinent of bladder during transfer to [facility], she is impulsive and had decreased safety awareness also during transfer. Pt. wished to sit on commode to try to have a BM, nursing notified of pt. position and instructed her to push call light when ready to return to chair. PT Flight Physician Goals Longterm Goals PT Longterm Goals Time Frame: May 02, 2017 Transfers (B,C,W/C) (FIM): 6 Gait (FIM): 2 Gait distance (FIM): 1=637-40 ft Distance: 125' Gait Level of Assist: 6 Gait Assistive Device: FWW PT Plan Treatment/Plan Treatment Plan: Continue Plan of Care Treatment Plan: Bed Mobility, Education, Functional Activity Anh, Functional Strength, Gait, Safety, Therapeutic Exercise, Transfers Treatment Duration: May 02, 2017 Frequency: Twice Daily (M-F and once Sat.) Estimated Hrs Per Day: .5 hour per day Patient and/or Family Agrees t: Yes Time/GCodes Time In: 848 Time Out: 902 Total Billed Treatment Time: 14 Total Billed Treatment 1, Ex 10' (FA 4') BHAVANI WASHINGTON PT Apr 12, 2017 10:11
[2017-04-12 13:36] VITALS: BP 146/67
[2017-04-12 16:09] VITALS: BP 147/71
[2017-04-12] MEDS ORDERED: SOD POLYSTERENE 15 GM/60 ML (KAYEXALATE) UNIT DOSE PO ONE (17:00)
[2017-04-12] MEDS: ENOXAPARIN 30 MG/0.3 ML (LOVENOX) SYR SC SCH (17:12)
[2017-04-12] MEDS ORDERED: ACETAMINOPHEN 325 MG TABLET/CAPLET (TYLENOL) PO PRN (18:00)
[2017-04-12] MEDS: MELATONIN 3 MG TABLET PO SCH (21:13)
[2017-04-12] MEDS: QUEtiapine 25 MG (SEROquel) TAB IMMEDIATE RELEASE PO SCH (21:14)
[2017-04-12] MEDS: ACETAMINOPHEN 500 MG TAB (TYLENOL) PO SCH (21:14)
[2017-04-12] MEDS: DULoxetine 30 MG (CYMBALTA) CAP PO SCH (21:14)
[2017-04-12] MEDS: inSUlin DETERMIR 1 UNIT/0.01 ML (LEVEMIR) CHARGE PER UNIT SQ SCH (21:15)
[2017-04-13] VITALS: BP 188/69
[2017-04-13 05:43] LABS: MEAN CORPUSCULAR HEMOGLOBIN 29 PG (25-34); MEAN CORPUSCULAR HGB CONC 32 G/DL (32-36); MEAN CORPUSCULAR VOLUME 90 FL (80-99); PLATELET COUNT 91 10^3/uL (130-400); RED BLOOD COUNT 3.03 10^6/uL (4.35-5.85); RED CELL DISTRIBUTION WIDTH 13.9 % (10.0-14.5)
[2017-04-13] MEDS: inSUlin (REGULAR) HUMAN 1 UNIT/0.01 ML (CHARGE PER UNIT) SC SCH ×4 (05:57→20:51)
[2017-04-13] MEDS: LEVOTHYROXINE 50 MCG (LEVOTHROID) TAB PO SCH (06:03)
[2017-04-13] MEDS: NAPROXEN 250 MG (NAPROSYN) TABLET PO SCH ×2 (06:03→16:25)
[2017-04-13] MEDS: AUGMENTIN 500 MG TAB (AMOXICILLIN/CLAVULANATE) PO SCH ×2 (06:03→16:25)
[2017-04-13] MEDS: PANTOPRAZOLE 40 MG (PROTONIX) TAB PO SCH (06:03)
[2017-04-13 06:06] LABS: ALBUMIN 2.8 GM/DL (3.2-4.5); BILIRUBIN,TOTAL 0.6 MG/DL (0.1-1.0); CALCIUM 8.3 MG/DL (8.5-10.1); CREATININE SERUM 1.05 MG/DL (0.60-1.30); POTASSIUM 4.7 MMOL/L (3.6-5.0); TOTAL PROTEIN 5.4 GM/DL (6.4-8.2)
--- NOTE | 2017-04-13 07:52 | Progress Note (SOAP) ---
Subjective Subjective Date Seen by Provider: Apr 13, 2017 Time Seen by Provider: 07:46 81 yo female with a left hip fracture. Pain is controlled. Pt is still oozing blood from surgical site- it has slowed down a little. Pt reports she is going to get up more today. She would like to be able to urinate without being cathed. She has not had a bowel movement while inpatient. Fecal occult test has not been ran for this reason. Review of Systems General: No Chills, Fatigue HEENT: No Head Aches Pulmonary: No Dyspnea, No Cough Cardiovascular: No: Chest Pain, Palpitations Gastrointestinal: Constipation, No: Abdominal Pain, Nausea Musculoskeletal: leg pain (LEFT HIP, BILATERAL KNEES) Neurological: Weakness, No: Confusion All Other Systems Reviewed All Other Systems Reviewed: Yes Objective Exam Vital Signs Vital Sign - Last 12Hours 04/09/17 07:01 Temp 98.2 Pulse 72 Resp 14 B/P (MAP) 129/76 Pulse Ox 96 O2 Delivery Nasal Cannula O2 Flow Rate 2.00 Capillary Refill : Less Than 3 SecondsLess Than 3 Seconds General Appearance: No Apparent Distress Eyes: Bilateral Eye EOMI, Bilateral Eye Normal Inspection, Bilateral Eye PERRL HEENT: PERRL/EOMI Neck: Supple Respiratory: Chest Non Tender, Lungs Clear, Normal Breath Sounds Cardiovascular: Regular Rate, Rhythm Gastrointestinal: Normal Bowel Sounds, Non Tender, Soft Rectal: Deferred Back: No CVA Tenderness Extremity: Other (blood on bandage left hip) Neurologic/Psychiatric: Alert, Oriented x3, No Motor/Sensory Deficits, Normal Mood/Affect Skin: Warm/Dry Lymphatic: No Adenopathy Results Lab Laboratory Tests 04/12/17 11:04: Glucometer 170H 04/12/17 16:09: Glucometer 113H 04/12/17 20:59: Glucometer 186H 04/13/17 05:02: White Blood Count 8.0, Red Blood Count 3.03L, Hemoglobin 8.8L, Hematocrit 27L, Mean Corpuscular Volume 90, Mean Corpuscular Hemoglobin 29, Mean Corpuscular Hemoglobin Concent 32, Red Cell Distribution Width 13.9, Platelet Count 91L, Mean Platelet Volume , Sodium Level 138, Potassium Level 4.7, Chloride Level 110H, Carbon Dioxide Level 22, Anion Gap 6, Blood Urea Nitrogen 28H, Creatinine 1.05, Estimat Glomerular Filtration Rate 50, BUN/Creatinine Ratio 27, Glucose Level 130H, Calcium Level 8.3L, Total Bilirubin 0.6, Aspartate Amino Transf (AST /SGOT) 33, Alanine Aminotransferase (ALT/SGPT) 8, Alkaline Phosphatase 66, Total Protein 5.4L, Albumin 2.8L 04/13/17 05:16: Glucometer 122H Microbiology 04/09/17 MRSA Screen - Final, Complete MRSA not isolated Assessment/Plan Assessment/Plan Assessment/Plan 81 yo F comminuted intertrochanteric left femur fracture- surgical repair 04/09/[address] Palma- Pt to be OOB. discharge to Rehab - pt wants to go to [facility] assisted living [facility] Acute on chronic anemia- s/p 2 pRBC on 04/10 and 2 pRBC on 04/11- monitor hgb UTI- on augmentin til 04/14/17 chronic hypoxia- obesity hypoventilation likely- 2L oxygen NC HTN- continue coreg, hydralazine DMII -levemir, SSI B, holding glipizide while inpt depression with psychosis- cymbalta, seroquel insomnia- melatonin hypothyroidism-continue levothyroxine hyperkalemia- ivf, insulin, lasix prn, kayexelate x1. trending down. DVT ppx: lovenox, scds Dispo: continue to monitor hgb, left hip surgical site bleeding - appears to be slowing down. -planning to discharge to [facility] when stable. Problems: Clinical Quality Measures DVT/VTE Risk/Contraindication: Risk Factor Score Per Nursin RFS Level Per Nursing on Admit: 4+=Very High JOSSELYN TURNER MD Apr 13, 2017 07:52
[2017-04-13 07:53] VITALS: BP 156/48
[2017-04-13] MEDS: NS IV 1000 ML 1,000 ML IV SCH ×2 (08:45→18:12)
[2017-04-13] MEDS: ARTIFICAL TEARS 0.4 ML UNIT DOSE (REFRESH PLUS) OU SCH ×3 (08:51→20:31)
[2017-04-13] MEDS: LACTOBACILLUS Acidoph/Bulgar (LACTINEX/FLORANEX) TAB PO SCH ×2 (08:51→20:31)
[2017-04-13] MEDS: CLOPIDOGREL 75 MG (PLAVIX) TABLET PO SCH (08:51)
[2017-04-13] MEDS: ASPIRIN E.C. 325 MG (ECOTRIN) TABLET PO SCH (08:52)
[2017-04-13] MEDS: CARVEDILOL 12.5 MG (COREG) TABLET PO SCH ×2 (08:52→20:32)
[2017-04-13] MEDS: hydrALAZINE (APRESOLINE) 25 MG TAB PO SCH ×3 (08:57→20:31)
[2017-04-13] MEDS: DOCUSATE SODIUM 100 MG (COLACE) CAP PO SCH ×2 (08:57→20:37)
[2017-04-13 09:00] VITALS: BP 156/70
[2017-04-13] MEDS ORDERED: LACTULOSE SYRUP 10GM/15ML (ENULOSE) 30ML UDC PO ONE (09:00)
[2017-04-13] MEDS: oxyCODONE/APAP 5/325MG (PERCOCET 5) TABLET PO PRN ×3 (11:12→20:31)
--- NOTE | 2017-04-13 12:44 | Physical Therapy Daily Note ---
PT Daily Note-Current Subjective Pt. reclined in chair upon arrival, agrees to therapy. During session, pt. rates L hip pain 8/10 with standing at chair, nursing gives pain medication. Pt. refuses to attempt ambulation despite encouragement of therapist and nurse. Mental Status Patient Orientation: Person Attachments: Oxygen, IV Transfers Functional [place] Measure 0=Not Assessed/NA 4=Minimal Assistance 1=Total Assistance 5=Supervision or Setup 2=Maximal Assistance 6=Modified [place] 3=Moderate Assistance 7=Complete IndependenceIRFPAI Quality Coding Scale 6 Independent with activity with or without an assistive device 5 Patient requires set up or clean up by helper. Patient completes activity by themselves 4 Supervision or touching assist (CGA). [place] provide cues , steadying assist 3 The helper provides less than half the effort to complete the activity 2 The helper provides more than half the effort to complete the activity 1 Dependent. The helper does all the effort to complete an activity 7 Patient refused to complete or attempt activity 9 The patient did not perform the activity before the current illness or injury 88 Not attempted due to Medical conditions or safety concerns Transfers (B, C, W/C) (FIM): 4 Sit to/from Stand: 4 Weight Bearing Weight Bearing Restriction: Weight Bearing/Tolerated Location Restriction: L LE Exercises Supine Ex: Ankle pumps, Quad Set, Glut sets, Straight leg raise, Hip abd/add Supine Reps: 15 Treatments sit to stand transfers, LE exercises Assessment Current Status: Poor Progress, Fair Progress Pt. refuses attempts to increase mobility and becomes very anxious and upset at therapist and nurse during session. Pt. has several complaints of numbness in the L foot, incontinence bladder, and increased L hip pain while standing and attempting to ambulate. Pt. refuses to ambulate away from bedside chair this date. Overall participation with therapy is minimal today despite pt. education on importance of movement and to increase mobility. Pt. up in bedside chair post session with call light and all needs met. PT Longterm Goals Septic Tank Cleaner Goals PT Septic Tank Cleaner Goals Time Frame: May 02, 2017 Transfers (B,C,W/C) (FIM): 6 Gait (FIM): 2 Gait distance (FIM): 1=027-82 ft Distance: 125' Gait Level of Assist: 6 Gait Assistive Device: FWW PT Plan Treatment/Plan Treatment Plan: Continue Plan of Care Treatment Plan: Bed Mobility, Education, Functional Activity Anh, Functional Strength, Gait, Safety, Therapeutic Exercise, Transfers Treatment Duration: May 02, 2017 Frequency: Twice Daily (M-F and once Sat.) Estimated Hrs Per Day: .5 hour per day Patient and/or Family Agrees t: Yes Time/GCodes Time In: 1100 Time Out: 1130 Total Billed Treatment Time: 30 Total Billed Treatment 1, FA 20', Ex 10' BHAVANI WASHINGTON PT Apr 13, 2017 12:44
[2017-04-13 16:00] VITALS: BP 182/7
[2017-04-13] MEDS: ENOXAPARIN 30 MG/0.3 ML (LOVENOX) SYR SC SCH (17:39)
[2017-04-13 17:49] VITALS: BP 180/72
[2017-04-13] MEDS ORDERED: meTOprolol TARTRATE 25 MG (LOPRESSOR) TABLET PO PRN (18:00)
[2017-04-13] MEDS ORDERED: meTOprolol TARTRATE 25 MG (LOPRESSOR) TABLET PO ONE (18:00)
[2017-04-13] MEDS: MELATONIN 3 MG TABLET PO SCH (20:31)
[2017-04-13] MEDS: QUEtiapine 25 MG (SEROquel) TAB IMMEDIATE RELEASE PO SCH (20:31)
[2017-04-13] MEDS: DULoxetine 30 MG (CYMBALTA) CAP PO SCH (20:32)
[2017-04-13] MEDS: ACETAMINOPHEN 500 MG TAB (TYLENOL) PO SCH (20:32)
[2017-04-13] MEDS: inSUlin DETERMIR 1 UNIT/0.01 ML (LEVEMIR) CHARGE PER UNIT SQ SCH (20:49)
[2017-04-13 23:30] VITALS: BP 125/54
[2017-04-14] MEDS: inSUlin (REGULAR) HUMAN 1 UNIT/0.01 ML (CHARGE PER UNIT) SC SCH ×4 (05:13→21:09)
[2017-04-14] MEDS: NAPROXEN 250 MG (NAPROSYN) TABLET PO SCH ×2 (06:13→16:02)
[2017-04-14] MEDS: oxyCODONE/APAP 5/325MG (PERCOCET 5) TABLET PO PRN ×3 (06:13→22:11)
[2017-04-14] MEDS: LEVOTHYROXINE 50 MCG (LEVOTHROID) TAB PO SCH (06:13)
[2017-04-14] MEDS: AUGMENTIN 500 MG TAB (AMOXICILLIN/CLAVULANATE) PO SCH (06:13)
[2017-04-14] MEDS: PANTOPRAZOLE 40 MG (PROTONIX) TAB PO SCH (06:13)
[2017-04-14] MEDS: DOCUSATE SODIUM 100 MG (COLACE) CAP PO SCH ×2 (08:02→20:15)
[2017-04-14] MEDS: ARTIFICAL TEARS 0.4 ML UNIT DOSE (REFRESH PLUS) OU SCH ×3 (08:02→20:16)
[2017-04-14] MEDS: LACTOBACILLUS Acidoph/Bulgar (LACTINEX/FLORANEX) TAB PO SCH ×2 (08:02→20:15)
[2017-04-14] MEDS: CARVEDILOL 12.5 MG (COREG) TABLET PO SCH ×2 (08:02→20:16)
[2017-04-14] MEDS: hydrALAZINE (APRESOLINE) 25 MG TAB PO SCH ×3 (08:02→20:15)
[2017-04-14 08:36] VITALS: BP 144/69
[2017-04-14] MEDS ORDERED: PATIENT MAY USE OWN MED,SINGLE MED PO SCH ×2 (09:30)
--- NOTE | 2017-04-14 10:14 | Physical Therapy Daily Note ---
PT Daily Note-Current Subjective Patient reluctantly agrees to PT. Pain Numeric Pain Scale: 10-Worst Possible Pain Location: Left Location Body Site: Hip Pain Description: Acute Mental Status Patient Orientation: Normal For Age Attachments: Oxygen, Blanco Catheter, IV Transfers Functional [place] Measure 0=Not Assessed/NA 4=Minimal Assistance 1=Total Assistance 5=Supervision or Setup 2=Maximal Assistance 6=Modified [place] 3=Moderate Assistance 7=Complete IndependenceIRFPAI Quality Coding Scale 6 Independent with activity with or without an assistive device 5 Patient requires set up or clean up by helper. Patient completes activity by themselves 4 Supervision or touching assist (CGA). [place] provide cues , steadying assist 3 The helper provides less than half the effort to complete the activity 2 The helper provides more than half the effort to complete the activity 1 Dependent. The helper does all the effort to complete an activity 7 Patient refused to complete or attempt activity 9 The patient did not perform the activity before the current illness or injury 88 Not attempted due to Medical conditions or safety concerns Transfers (B, C, W/C) (FIM): 4 Scootin Sit to/from Stand: 4 CGA with use of gait belt for safety Weight Bearing Weight Bearing Restriction: Weight Bearing/Tolerated Location Restriction: L LE Gait Training Gait (FIM): 1 Distance (FIM): 1=up to 49 ft Distance: 3' x 4 Gait Level of Assist: 4 Gait Persons Needed: 1 Gait Assistive Device: FWW Patient demonstrates ability to advance bilateral LE with ambulation with FWW, however, becomes very anxious and tearful and will impulsively sit to end session. Assessment Education with patient on safety concerns and impulsive behavior. Patient is very tearful and states she if she needs to be in a w/c for the rest of her life she was fine with that. PT informed RN on patient status with PT. 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 [facility] Goals PT [facility] Goals Time Frame: May 02, 2017 Transfers (B,C,W/C) (FIM): 6 Gait (FIM): 2 Gait distance (FIM): 0=191-59 ft Distance: 125' Gait Level of Assist: 6 Gait Assistive Device: FWW PT Plan Treatment/Plan Treatment Plan: Continue Plan of Care Treatment Plan: Bed Mobility, Education, Functional Activity Anh, Functional Strength, Gait, Safety, Therapeutic Exercise, Transfers Treatment Duration: May 02, 2017 Frequency: Twice Daily (M-F and once Sat.) Estimated Hrs Per Day: .5 hour per day Patient and/or Family Agrees t: Yes Safety Risks/Education Patient Education: Safety Issues Teaching Recipient: Patient Teaching Methods: Discussion Response to Teaching: Reinforcement Needed Discharge Recommendations Therapy D/C Recommendations: Retirement (TCU/NH) Time/GCodes Time In: 945 Time Out: 1000 Total Billed Treatment Time: 15 Total Billed Treatment 1 visit FA 15 min MIKY BREAUX PT Apr 14, 2017 10:14
[2017-04-14 10:40] LABS: BASOPHILS % (AUTO) 0 % (0-10); EOSINOPHILS # (AUTO) 0.5 10^3/uL (0.0-0.3); EOSINOPHILS % (AUTO) 5 % (0-10); LYMPHOCYTES # (AUTO) 1.7 X 10^3 (1.0-4.0); LYMPHOCYTES % (AUTO) 14 % (12-44); MEAN CORPUSCULAR HEMOGLOBIN 29 PG (25-34); MEAN CORPUSCULAR HGB CONC 32 G/DL (32-36); MEAN CORPUSCULAR VOLUME 92 FL (80-99); MONOCYTES # (AUTO) 1.4 X 10^3 (0.0-1.0); MONOCYTES % (AUTO) 12 % (0-12); NEUTROPHILS # (AUTO) 8.2 X 10^3 (1.8-7.8); NEUTROPHILS % (AUTO) 69 % (42-75); PLATELET COUNT 108 10^3/uL (130-400); RED BLOOD COUNT 3.08 10^6/uL (4.35-5.85); RED CELL DISTRIBUTION WIDTH 14.1 % (10.0-14.5); WHITE BLOOD COUNT 11.9 10^3/uL (4.3-11.0)
[2017-04-14 10:58] LABS: ALBUMIN 2.9 GM/DL (3.2-4.5); CALCIUM 8.6 MG/DL (8.5-10.1); CREATININE SERUM 0.99 MG/DL (0.60-1.30); MAGNESIUM 1.4 MG/DL (1.8-2.4); POTASSIUM 5.4 MMOL/L (3.6-5.0)
--- NOTE | 2017-04-14 14:12 | Occupational Ther Daily Note ---
OT Current Status-Daily Note Subjective Pt seen in room, up in recliner, agreeable to OT. No pain mentioned. Pt said she would go to [facility] once her blood pressure is under control. Appearance Alert, cooperative, anxious Mental Status/Objective Functional [place] Measure 0=Not Assessed/NA 4=Minimal Assistance 1=Total Assistance 5=Supervision or Setup 2=Maximal Assistance 6=Modified [place] 3=Moderate Assistance 7=Complete [place] Other Treatment Pt education on three different therapeutic exercises done with red theraband ( medium resistance), 10 reps, to strengthen arms to help with transfers and standing during ADLs. Pt was able to follow verbal and visual directions for the exercises. Some difficulty tracking repetitions and switching sides. Pt encouraged to do some stretches on her own. Pt left up in chair, all needs met. OT Short Term Goals Short Term Goals 1=Demonstrate adherence to instructed precautions during ADL tasks. 2=Patient will verbalize/demonstrate understanding of assistive devices/ modifications for ADL. 3=Patient will improve strength/tolerance for activity to enable patient to perform ADL's. OT Animal Technician Goals Care Home Goals Time Frame: May 01, 2017 Eating (FIM): 6 Grooming(FIM): 5 Bathing(FIM): 5 Upper Body Dressing(FIM): 6 Lower Body Dressing(FIM): 6 Toileting(FIM): 6 Toilet/Commode Transfer(FIM): 6 Shower Transfer(FIM): 5 Additional Goals: 1-Demonstrate ADL Tasks, 2-Verbalize Understanding, 3- ImproveStrength/Anh 1=Demonstrate adherence to instructed precautions during ADL tasks. 2=Patient will verbalize/demonstrate understanding of assistive devices/ modifications for ADL. 3=Patient will improve strength/tolerance for activity to enable patient to perform ADL's. OT Education/Plan Problem List/Assessment Pt would benefit from skilled OT to increase her independence in basic self care to allow her to safely return to her home to live independently Discharge Recommendations Plan/Recommendations: Continue POC Treatment Plan/Plan of Care Patient would benefit from OT for education, treatment and training to promote independence in ADL's, mobility, safety and/or upper extremity function for ADL' s. Plan of Care: ADL Retraining, Functional Mobility, UE Funct Exercise/Act, UE Neuromus Re-Ed/Coord, Visual/Perceptual Retrain Treatment Duration: May 01, 2017 Frequency: Daily Estimated Hrs Per Day: .5 hour per day Rehab Potential: Good Time/GCodes Start Time: 13:32 Stop Time: 13:47 Total Time Billed (hr/min): 15 Billed Treatment Time visit, 15 minutes exercise JACINTA CHOW OT Apr 14, 2017 14:12
--- NOTE | 2017-04-14 14:50 | Physical Therapy Progress Note ---
Therapy Progress Note Patient adamantly declined PT this p.m. due to fatigue and patient states, "I'm too exhausted from taking a shower." PT attempted to educate patient on importance of participating with therapy, however, patient continued to decline. PT will attempt in a.m. 1 ref MIKY BREAUX PT Apr 14, 2017 14:50
[2017-04-14 15:55] VITALS: BP 187/75
--- NOTE | 2017-04-14 20:02 | Progress Note (SOAP) ---
Subjective Date Seen by Provider: Apr 14, 2017 Time Seen by Provider: 08:55 Subjective/Events-last exam PT REPORTS THAT SHE IS STILL FEELING FATIGUED. SHE REPORTS THAT HER HIP STILL HURTS. SHE REPORTS THAT HER HIP IS STILL HURTING. SHE STATES THAT SHE HAS NO HEADACHE, NO DIZZINESS, NO ABDOMINAL PAIN. Review of Systems General: Fatigue, Malaise HEENT: No Head Aches Pulmonary: No Dyspnea, No Cough Cardiovascular: No: Chest Pain Gastrointestinal: No: Abdominal Pain, Nausea Neurological: Weakness, No: Confusion Objective Exam Vital Signs Date Time Temp Pulse Resp B/P (MAP) Pulse Ox O2 Delivery O2 Flow Rate FiO2 04/14/17 15:55 98.2 79 17 187/75 97 Nasal Cannula 2.50 04/14/17 10:45 Nasal Cannula 3.00 04/14/17 08:56 Nasal Cannula 2.50 04/14/17 08:36 96.9 70 16 144/69 97 Nasal Cannula 3.00 04/13/17 23:30 97.3 72 18 125/54 97 Nasal Cannula 3.00 04/13/17 20:35 Nasal Cannula 2.50 I & O 04/14/17 07:00 Intake Total 1460 ml Output Total 1600 ml Balance -140 ml Capillary Refill : Less Than 3 SecondsLess Than 3 Seconds General Appearance: No Apparent Distress, WD/WN HEENT: PERRL/EOMI Neck: Supple Respiratory: Chest Non Tender, Lungs Clear, Normal Breath Sounds Cardiovascular: Regular Rate, Rhythm Gastrointestinal: normal bowel sounds, non tender, soft, no organomegaly, no pulsatile mass Extremity: No Pedal Edema Neurologic/Psychiatric: Alert, Oriented x3, No Motor/Sensory Deficits Skin: Warm/Dry Lymphatic: No Adenopathy Results Lab Laboratory Tests 04/13/17 20:42: Glucometer 221H 04/14/17 05:10: Glucometer 105 04/14/17 09:45: White Blood Count 11.9H, Red Blood Count 3.08L, Hemoglobin 8.9L, Hematocrit 28L , Mean Corpuscular Volume 92, Mean Corpuscular Hemoglobin 29, Mean Corpuscular Hemoglobin Concent 32, Red Cell Distribution Width 14.1, Platelet Count 108L, Mean Platelet Volume , Neutrophils (%) (Auto) 69, Lymphocytes (%) (Auto) 14, Monocytes (%) (Auto) 12, Eosinophils (%) (Auto) 5, Basophils (%) (Auto) 0, Neutrophils # (Auto) 8.2H, Lymphocytes # (Auto) 1.7, Monocytes # (Auto) 1.4H, Eosinophils # (Auto) 0.5H, Basophils # (Auto) 0.0, Sodium Level 138, Potassium Level 5.4H, Chloride Level 109H, Carbon Dioxide Level 21, Anion Gap 8, Blood Urea Nitrogen 23H, Creatinine 0.99, Estimat Glomerular Filtration Rate 54, BUN/ Creatinine Ratio 23, Glucose Level 224H, Calcium Level 8.6, Phosphorus Level 3.0 , Magnesium Level 1.4L, Albumin 2.9L 04/14/17 11:03: Glucometer 219H 04/14/17 12:58: Lab Scanned Report Transfusion Reaction Form 04/14/17 15:57: Glucometer 169H Microbiology 04/09/17 MRSA Screen - Final, Complete MRSA not isolated Assessment/Plan Assessment/Plan Assess & Plan/Chief Complaint COMMINUTED INTERTROCHANTERIC LEFT FEMUR FRACTURE URINARY TRACT INFECTION ANEMIA HYPERTENSION DIABETES MELLITUS CHRONIC OSTEOARTHRITIS PAIN OF KNEES BILATERALLY DEPRESSION WITH PSYCHOSIS INSOMNIA HIP FRACTURE - FEMUR XRAY -IMPRESSION: Comminuted intertrochanteric fracture left femur. DR. CESPEDES TO TAKE PATIENT TO SURGERY [facility]. PHYSICAL THERAPY RECOMMENDATIONS PER DR. CESPEDES. PT REPORTS THAT SHE WOULD LIKE TO GO TO THE [facility]ALTHCARE SIDE OF [facility] ON DISCHARGE FOR HER REHAB, THEN WHEN BETTER GO BACK TO ASSISTED LIVING. URINARY TRACT INFECTION - RESOLVED ANEMIA - HGB IMPROVED. HYPERTENSION - RESUMED. DIABETES MELLITUS - PT IS ON SLIDING SCALE, RESUMED FPC INSULIN. CHRONIC OSTEOARTHRITIS PAIN OF KNEES BILATERALLY - RESUMED NAPROXEN. DEPRESSION WITH PSYCHOSIS - ON SEROQUEL AND CYMBALTA - RESUMED. DVT PROPHYLAXIS - SCD'S - LOVENOX DC'D GI PROPHYLAXIS - PPI Clinical Quality Measures DVT/VTE Risk/Contraindication: Risk Factor Score Per Nursin RFS Level Per Nursing on Admit: 4+=Very High SHWETA FRANKS MD Apr 14, 2017 20:02
[2017-04-14] MEDS: QUEtiapine 25 MG (SEROquel) TAB IMMEDIATE RELEASE PO SCH (20:15)
[2017-04-14] MEDS: DULoxetine 30 MG (CYMBALTA) CAP PO SCH (20:15)
[2017-04-14] MEDS: ACETAMINOPHEN 500 MG TAB (TYLENOL) PO SCH (20:16)
[2017-04-14] MEDS: MELATONIN 3 MG TABLET PO SCH (20:26)
[2017-04-14] MEDS: inSUlin DETERMIR 1 UNIT/0.01 ML (LEVEMIR) CHARGE PER UNIT SQ SCH (21:09)
[2017-04-14 23:50] VITALS: BP 131/71
[2017-04-15] MEDS: LEVOTHYROXINE 50 MCG (LEVOTHROID) TAB PO SCH (06:11)
[2017-04-15] MEDS: PANTOPRAZOLE 40 MG (PROTONIX) TAB PO SCH (06:11)
[2017-04-15] MEDS: NAPROXEN 250 MG (NAPROSYN) TABLET PO SCH (06:12)
[2017-04-15] MEDS: inSUlin (REGULAR) HUMAN 1 UNIT/0.01 ML (CHARGE PER UNIT) SC SCH ×2 (06:12→11:37)
[2017-04-15 08:00] VITALS: BP 198/78
[2017-04-15] MEDS: ARTIFICAL TEARS 0.4 ML UNIT DOSE (REFRESH PLUS) OU SCH (08:13)
[2017-04-15] MEDS: LACTOBACILLUS Acidoph/Bulgar (LACTINEX/FLORANEX) TAB PO SCH (08:14)
[2017-04-15] MEDS: hydrALAZINE (APRESOLINE) 25 MG TAB PO SCH (08:14)
[2017-04-15] MEDS: DOCUSATE SODIUM 100 MG (COLACE) CAP PO SCH (08:15)
[2017-04-15] MEDS: CARVEDILOL 12.5 MG (COREG) TABLET PO SCH (08:15)
--- NOTE | 2017-04-15 09:33 | Discharge Summary ---
Diagnosis/Chief Complaint Date of Admission Apr 09, 2017 at 08:50 Date of Discharge Admission Diagnosis Admission Diagnosis COMMINUTED INTERTROCHANTERIC LEFT FEMUR FRACTURE URINARY TRACT INFECTION ANEMIA HYPERTENSION DIABETES MELLITUS CHRONIC OSTEOARTHRITIS PAIN OF KNEES BILATERALLY DEPRESSION WITH PSYCHOSIS INSOMNIA Reason Hospital Visit PT IS AN 81 Y/O FEMALE WHO IS A NEW PATIENT TO MY PRACTICE. SHE PRESENTED TO THE EMERGENCY DEPARTMENT AFTER HAVING A FALL AT HER ASSISTED LIVING FACILITY - [facility]. SHE REPORTS THAT SHE HAD TO GET UP IN THE MIDDLE OF THE RETAIL LEADER HOURS TO URINATE, SAT AT THE SIDE OF THE BED TO GET HER BALANCE, STARTED TO GET UP TO THE RESTROOM WHEN SHE FELL TO THE FLOOR AND HIT HER LEFT HIP. SHE WAS BROUGHT TO THE EMERGENCY DEPARTMENT AROUND 6AM AND WAS ADMITTED TO THE HOSPITAL AFTER CONFIRMATION OF HIP FRACTURE BY XRAY. Discharge Summary Discharge Physical Examination Allergies: Coded Allergies: amlodipine (Verified Allergy, Unknown, 04/09/17) influenza virus vaccine, specific (Verified Allergy, Unknown, 04/09/17) loratadine (Verified Allergy, Unknown, 04/09/17) metformin (Verified Allergy, Unknown, 04/09/17) niacin (Verified Allergy, Unknown, 04/09/17) Vitals & I&Os Vital Signs Date Time Temp Pulse Resp B/P (MAP) Pulse Ox O2 Delivery O2 Flow Rate FiO2 04/15/17 09:00 Nasal Cannula 2.00 04/15/17 08:00 97.8 66 16 198/78 97 Hospital Course Pending Labs Laboratory Tests 04/15/17 05:52: Glucometer 156 Discharge Instructions to patient/family Please see electonic discharge instructions given to patient. Discharge Medications Reviewed and agree with Discharge Medication list on patient's Discharge Instruction sheet Clinical Quality Measures DVT/VTE Risk/Contraindication: Risk Factor Score Per Nursin RFS Level Per Nursing on Admit: 4+=Very High SHWETA FRANKS MD Apr 15, 2017 09:33
[2017-04-15] MEDS ORDERED: BETH25TA PO (09:35)
[2017-04-15] MEDS ORDERED: OXYC-471 PO (09:35)
--- NOTE | 2017-04-15 09:38 | Discharge Inst-Skilled Nursing ---
Discharge Inst-Skilled NF Patient Instructions Patient Problems: hip fracture chronic pain hypertension anxiety weakness Consult/Follow Up/Orders Skilled NF Admit to: [facility] Certification (SNF) I certify that SNF services are required to be given on an inpatient basis because of the above named patient's need for shelter care on a continuing basis for the conditions(s) for which he/she was receiving inpatient hospital services prior to his/her transfer to the SNF. Long-Term Facility Order: Nursing Services, [facility] [employer] [facility]-Evaluate & Treat, Physical Therapy-Evaluate & Treat Discharge Diet: Regular Diet Daily Activity as Tolerated: Yes New & Resume Previous Orders Shweta Simmons Apr 15, 2017 09:37 SHWETA SIMMONS MD Apr 15, 2017 09:38
--- NOTE | 2017-04-15 11:33 | Occ Therapy Progress Note ---
Therapy Progress Note Pt. up in chair. Finishing breakfast. OT encouraged pt. to shower. Pt. states that she had a shower yesterday, and does not want another. Encouraged her to work with OT. Pt. states that she feels nauseated after eating. States , "I am not doing anything today." Pt. states that she is discharging, but states, "I don't know what all they will be doing over there." Pt. is discharging today to [facility] for continued skilled care to increase overall strength and endurance. Pt. encouraged to work on UE strength with OT. Pt. adamant that she is not doing anything today. 0900 1, visit No charge Pt. refused tx. EDGARD ANDERSEN OT Apr 15, 2017 11:33
== END 2017-04-15 12:15 | DRG 481 ==
LOC: EDUNIT# 07:01 → ER 07:03 → 4TH 08:50 → ENPENDDIS 04-15 10:00
PROVIDERS: ADMIT Orthopaedic Surgery; ATTEND Orthopaedic Surgery
PROC: 0QS706Z Reposition Left Upper Femur with Intramedullary Internal Fixation Device, Open Approach (ICD-10-PCS; principal; 2017-04-09 18:36)
DX: S72.142A Displaced intertrochanteric fracture of left femur, initial encounter for closed fracture (principal); N39.0 Urinary tract infection, site not specified; F32.3 Major depressive disorder, single episode, severe with psychotic features; D64.9 Anemia, unspecified; I25.10 Atherosclerotic heart disease of native coronary artery without angina pectoris; I10 Essential (primary) hypertension; E11.40 Type 2 diabetes mellitus with diabetic neuropathy, unspecified; Z66 Do not resuscitate; K21.9 Gastro-esophageal reflux disease without esophagitis; M17.0 Bilateral primary osteoarthritis of knee; E87.5 Hyperkalemia; F41.9 Anxiety disorder, unspecified; M54.9 Dorsalgia, unspecified; G47.00 Insomnia, unspecified; K59.09 Other constipation; E03.9 Hypothyroidism, unspecified; W18.39XA Other fall on same level, initial encounter; Y92.129 Unspecified place in nursing home as the place of occurrence of the external cause; Z79.84 Long term (current) use of oral hypoglycemic drugs
CPT/HCPCS: 36415; 70450; 71010; 72170; 73502; 73552; 76937; 80051; 80053; 80069; 81000; 82274; 82728; 82962; 83540; 83735; 85014; 85018; 85025; 85027; 85610; 85730; 86850; 86900; 86901; 86920; 87081; 93005; 94664; 96374; 96376

== ENCOUNTER → 2017-06-04 | Outpatient (CLI) | payer MEDICARE, OTHER ==
[~2017-06-04] MED LIST: ACET-2267 PO; AMOX1TAB11 PO; ASPI325T32 PO; BETH25TA PO; CARV25TA PO; CLOP75TA28 PO; CRAN250C2 PO; DEXT15DR25 OU; DEXT15DR26 OU; DOCU-143 PO; DULO60CA58 PO; GLIP5TAB13 PO; GLUC-160 PO; HYDR-3923 PO; HYDR50TA3 PO; INSU100V6 SC; LEVO50TA6 PO; LUTE1CAP4 PO; MELA1TAB15 PO; NAPR220T66 PO; OXYC-471 PO; PANT40TA3 PO; QUET25TA PO; QUET25TA73 PO; [UNRECOGNIZED DRUG - CODE] PO
[2017-06-04 19:50] LABS: BILIRUBIN,URINE NEGATIVE (NEGATIVE); KETONES,URINE NEGATIVE (NEGATIVE); LEUKOCYTE ESTERASE ,URINE 3+ (NEGATIVE); NITRITE,URINE NEGATIVE (NEGATIVE); PH,URINE 5 (5-9); PROTEIN,URINE 2+ (NEGATIVE); UROBILINOGEN,URINE NORMAL (NORMAL)
[2017-06-04 19:57] LABS: WBC,URINE TNTC /HPF
== END ==
LOC: CVS 19:15
PROVIDERS: ATTEND Family Medicine
DX: N39.0 Urinary tract infection, site not specified (principal)
CPT/HCPCS: 81000; 87088; 87186

== ENCOUNTER → 2017-07-10 | Outpatient (CLI) | payer MEDICARE, OTHER ==
--- NOTE | 2017-07-10 16:27 | Diagnostic Imaging Report ---
Supine view of the abdomen. INDICATION: Severe right flank pain. FINDINGS: Metallic foreign body in the right flank could be related to prior vascular coiling procedure. There are no definite urinary tract stones. Moderate amount of fecal material in the colon and rectum seen. There is posterior fusion hardware and anterior fusion hardware noted at L4-L5. There is internal fixation hardware seen in the left hip. IMPRESSION: Moderate amounts of fecal material seen in the colon. No obvious urinary tract stone. Dictated by: Dictated on workstation # [id number]
== END ==
LOC: RAD 11:48
PROVIDERS: ATTEND Nurse Practitioner Family
DX: K59.00 Constipation, unspecified (principal)
CPT/HCPCS: 74000

== ENCOUNTER → 2017-08-15 | Outpatient (CLI) | payer MEDICARE, OTHER ==
--- NOTE | 2017-08-15 19:45 | Diagnostic Imaging Report ---
INDICATION: Hypertension. Bilateral renal sonography performed in the routine fashion, including Doppler. FINDINGS: On the right side, the kidney measured 12.3 x 5.2 x 6.2 cm. On the left side, kidney measured 12.0 x 6.7 x 4.7 cm. Both kidneys show normal cortical thickness and echogenicity with no hydronephrosis. Urinary bladder appeared unremarkable. Right ureteral jet was visualized. Left ureteral jet was not seen. Renal artery Doppler was attempted. The proximal and mid portions of the right renal artery could not be visualized but the distal portion of the renal artery had normal velocity of 79 cm/sec. The left renal artery could not be visualized proximally but the mid and distal portions showed normal velocities of 55 and 47 cm/sec respectively. IMPRESSION: Normal size kidneys bilaterally with no hydronephrosis or mass. Portions of the renal artery Doppler were limited due to overlying gas but the visualized segments had normal velocities. If there is continued suspicion of renal artery stenosis, consider CT angiography. Dictated by: Dictated on workstation # [id number]
== END ==
LOC: RAD 12:39
PROVIDERS: ATTEND Internal Medicine Cardiovascular Disease
DX: I10 Essential (primary) hypertension (principal); I65.29 Occlusion and stenosis of unspecified carotid artery; E78.2 Mixed hyperlipidemia; E11.9 Type 2 diabetes mellitus without complications
CPT/HCPCS: 93975

== ENCOUNTER → 2017-08-15 | Outpatient (CLI) | payer MEDICARE, OTHER ==
--- NOTE | 2017-08-15 14:53 | Diagnostic Imaging Report ---
PROCEDURE: CT abdomen and pelvis without contrast. TECHNIQUE: Multiple contiguous axial images were obtained through the abdomen and pelvis without the use of intravenous contrast. INDICATION: Right flank pain x2 months. Frequent UTIs. FINDINGS: There is mild dependent atelectasis in the right lung base. Left lung base is clear. There is calcification of the aorta and renal arteries. No evidence of renal calculi. Renal outlines are smooth. There is mild thickening in Gerota's fascia bilaterally. No perinephric fluid. The ureters are not dilated. The bladder appears normal. There is small fibroid present within the uterus. There is a calcified 2 cm lesion in the left adnexa which is fatty with peripheral calcification likely representing a dermoid of the ovary. The liver appears normal. Gallbladder and bile ducts are normal. The pancreas and spleen are normal. There is dense calcification of the splenic artery. 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 This does contain a thick calcified wall. There is no evidence of aortic aneurysm. The appendix is visualized and normal. Stomach and small bowel are not distended. The colon shows normal stool and gas pattern. There is diverticulosis of the sigmoid colon. There is focal thickening of the mid sigmoid colon bowel wall with mild adjacent mesenteric edema suggesting possible mild focal diverticulitis. There is no evidence of abscess. No free air is demonstrated. There is no free air or free fluid. There is noted a small umbilical hernia containing mesenteric fat without incarceration. Bone windows show diffuse degenerative changes of the spine with fusion of the lower lumbar spine. IMPRESSION: 1. No evidence of renal calculi. No hydronephrosis. 2. Dense vascular calcification. 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 3. Finding suggestive of mild focal diverticulitis in the mid sigmoid colon just right of midline. No evidence of abscess. No free air or free fluid. 4. There is a small umbilical hernia without incarceration. Dictated by: Dictated on workstation # [id number]
== END ==
LOC: RAD 12:46
PROVIDERS: ATTEND Urology
DX: I72.8 Aneurysm of other specified arteries (principal); K42.9 Umbilical hernia without obstruction or gangrene; Z87.440 Personal history of urinary (tract) infections
CPT/HCPCS: 74176

== ENCOUNTER → 2017-08-27 | Outpatient (CLI) | payer MEDICARE, OTHER ==
[~2017-08-27] VITALS: Ht 165.1 cm; Wt 100.2 kg
[~2017-08-27] MED LIST changes: +CATHETER FLUSH 10 ML SYR IV PRN; +REGADENOSON 0.4 MG/5 ML SYR (LEXISCAN) IV ONE
[2017-08-27 13:38] VITALS: BP 218/91
[2017-08-27 13:43] VITALS: BP 229/110
--- NOTE | 2017-08-28 10:08 | STRESS TEST ---
DATE OF SERVICE: 08/27/2017 LEXISCAN MYOVIEW STRESS TEST REPORT Baseline heart rate is 80, baseline blood pressure 218/91. Baseline EKG is sinus rhythm with no ischemic changes. In summary, the patient was injected with 10.14 mCi of technetium-99 Myoview and the resting images were obtained. Then, the patient received 0.4 mg of Lexiscan followed by 28.0 mCi of technetium-99 Myoview. Throughout the test, there were no EKG changes. The resting and stress images were reviewed and compared in the short axis, horizontal long axis, and vertical long axis views. Review of the images showed breast attenuation affecting the quality of the images. There is mild decreased uptake at the mid to apical anterolateral and inferolateral wall with mild reversibility. SSS is 4. SDS is 4. TID value 1.01. On the gated images, the left ventricle appeared to be normal size with normal contractility. Calculated ejection fraction 55%. CONCLUSION: 1. The patient tolerated Lexiscan well. 2. Breast attenuation affecting the quality of the images. Overall, there is mild decreased uptake at the mid to apical anterolateral and inferolateral wall with mild reversibility probably due to the breast attenuation. 3. Normal left ventricular size with normal contractility. Calculated ejection fraction 55%. Job ID: [id number] DocumentID: [id number] Dictated Date: 08/28/2017 07:55:20 [employer] Cal[employer] Date: 08/28/2017 09:10:15 Dictated By: ORESTES SERRANO MD
== END ==
LOC: CARD 11:28
PROVIDERS: ATTEND Internal Medicine Cardiovascular Disease
DX: I10 Essential (primary) hypertension (principal); E78.2 Mixed hyperlipidemia; I70.1 Atherosclerosis of renal artery; E11.9 Type 2 diabetes mellitus without complications
CPT/HCPCS: 78452; 93017

== ENCOUNTER → 2017-09-25 | Outpatient (CLI) | payer MEDICARE, OTHER ==
[~2017-09-25] MED LIST changes: -CATHETER FLUSH 10 ML SYR IV PRN; -REGADENOSON 0.4 MG/5 ML SYR (LEXISCAN) IV ONE
[2017-09-25 13:41] LABS: CREATININE SERUM 0.95 MG/DL (0.60-1.30)
--- NOTE | 2017-09-25 14:56 | Diagnostic Imaging Report ---
PROCEDURE: CT angiography of the chest with contrast. TECHNIQUE: Multiple contiguous axial images were obtained through the chest after uneventful bolus administration of intravenous contrast. Reconstructed CTA MIP acquisitions were also performed. INDICATION: Respiratory distress. There are no prior studies available for comparison. FINDINGS: There is no defect within the pulmonary arteries to indicate a pulmonary embolus. The aorta is not abnormally dilated and there is no sign of dissection. The heart is mildly enlarged and there are coronary artery calcifications evident. There are mild chronic pulmonary changes present. There is no sign of failure, pneumonia or of a pleural effusion to suggest an acute abnormality. There is no mediastinal or hilar adenopathy. The thyroid gland is unremarkable. The bone windows show no sign of a fracture or of a destructive lesion. There is fairly severe degenerative disc and bony disease throughout the thoracic and upper lumbar spine, however. The sections through the upper abdomen fail to show any sign of an acute abnormality. There is an asymmetric 2.2 x 2.8 cm soft tissue density in the lateral aspect of the right breast. This finding may merely be secondary to fibroglandular tissue. The possibility that there is an underlying malignant process in this area should still be considered. I would recommend that mammography be performed for further evaluation. IMPRESSION: 1. There is cardiomegaly and coronary artery disease but there is no acute cardiopulmonary abnormality noted. In particular, there is no sign of a pulmonary embolus or of a dissection. 2. The asymmetric soft tissue density in the lateral aspect of the right breast is questionable for malignancy. Recommendations as above. 3. There is degenerative disc and bony disease throughout the thoracic spine. 4. These results were called to Dr. Roman Hernandez's office. Dictated by: Dictated on workstation # [id number]
[2017-09-25 15:08] LABS: ABG BASE EXCESS -1.2 MMOL/L (-2.5-2.5); ABG OXYGEN SATURATION 94 % (94-100); ABG PCO2 43 MMHG (35-45); ABG PH 7.35 (7.37-7.43); ABG PO2 66 MMHG (79-93); ABG TCO2 24.9 MMOL/L (21.0-31.0)
[2017-09-25 15:10] LABS: ALLENS TEST YES-POS; INSPIRED O2 2 NC; PATIENT TEMP 98.6; VENTILATOR NO
== END ==
LOC: RAD 13:09
PROVIDERS: ATTEND Internal Medicine Critical Care Medicine
DX: I51.7 Cardiomegaly (principal); I25.10 Atherosclerotic heart disease of native coronary artery without angina pectoris; J44.9 Chronic obstructive pulmonary disease, unspecified; M51.34 Other intervertebral disc degeneration, thoracic region
CPT/HCPCS: 36415; 71275; 82565; 82805; 84520

== ENCOUNTER → 2017-10-01 | Outpatient (CLI) | payer MEDICARE, OTHER | LOC: RAD 11:35 | PROVIDERS: ATTEND Internal Medicine Cardiovascular Disease | DX: I08.8 Other rheumatic multiple valve diseases (principal); I65.29 Occlusion and stenosis of unspecified carotid artery; I70.1 Atherosclerosis of renal artery; I31.3 Pericardial effusion (noninflammatory); E78.2 Mixed hyperlipidemia; E11.9 Type 2 diabetes mellitus without complications; I10 Essential (primary) hypertension | CPT/HCPCS: 93306 ==

== ENCOUNTER → 2017-10-08 | Outpatient (CLI) | payer MEDICARE, OTHER ==
--- NOTE | 2017-10-08 19:31 | Diagnostic Imaging Report ---
INDICATION: Palpable lump in the upper right breast. The patient also had abnormal CT study describing asymmetric density in the outer right breast. This study was performed for further evaluation. EXAMINATION: Bilateral 3D CC and MLO mammography was performed. In addition, a right mediolateral view and exaggerated CC views were obtained. The current study was also evaluated with a Computer Aided Detection (CAD) system. FINDINGS: There is mild asymmetric density in the lateral right breast, likely accounting for the CT abnormality. No discrete mass is identified. No suspicious calcifications are seen. At the area of patient's palpable abnormality in the upper and slightly inner right breast, no underlying abnormality is seen. No malignant-appearing micro-calcifications are identified. There are vascular calcifications present. The axillae are unremarkable. IMPRESSION: No mammographic features suspicious for malignancy are identified. Even so, further evaluation of the right breast in the outer portion at the area of asymmetric density is recommended. In addition, ultrasound of the patient's palpable abnormality in the upper and slightly inner right breast is recommended. ACR BI-RADS Category 0: Incomplete. (Needs additional imaging evaluation). Result letter will be mailed to the patient. Note: At least 10% of breast cancer is not imaged by mammography. Dictated by: Dictated on workstation # [id number]
--- NOTE | 2017-10-08 19:49 | Diagnostic Imaging Report ---
INDICATION: Abnormal CT scan demonstrating a density in the lateral right breast. Study was performed for further evaluation. EXAMINATION: Right breast ultrasound. COMPARISON: Correlation is made with CT study from 09/25/2016 as well as a diagnostic mammogram from earlier the same day. FINDINGS: Sonographic interrogation of the outer right breast is unremarkable apart from an 8 mm x 5 mm lymph node at the 9 o'clock location. Evaluation at the 1 o'clock location was also performed at the area of patient's palpable lump. No underlying solid or cystic mass is detected. IMPRESSION: No suspicious sonographic features are identified. The patient may return to routine annual screening mammography. ACR BI-RADS Category 2: Benign findings. Result letter will be mailed to the patient. Note: At least 10% of breast cancer is not imaged by mammography. Dictated by: Dictated on workstation # [id number]
== END ==
LOC: RAD 13:28
PROVIDERS: ATTEND Nurse Practitioner Family
DX: N63.10 Unspecified lump in the right breast, unspecified quadrant (principal)
CPT/HCPCS: 77066

== ENCOUNTER → 2017-10-17 | Outpatient (CLI) | payer MEDICARE, OTHER ==
--- NOTE | 2017-10-17 13:42 | Diagnostic Imaging Report ---
PROCEDURE: CT left lower extremity without contrast. TECHNIQUE: Multiple contiguous axial images were obtained through the left lower extremity without the use of intravenous contrast. Sagittal and coronal reformations were then performed. INDICATION: Lateral hip pain. Prior hip fracture, status post intramedullary fixation. Comparison: Left femur radiographs from 04/11/2017. Findings: There is incomplete imaging of a dynamic intramedullary nail within the femur with a sliding femoral neck screw. Numerous fracture gaps remain nonfused from prior intertrochanteric and subtrochanteric fracture of the femur. There is periosteal callus formation. There is no osteonecrosis of the femoral head. There is no progressive subsidence of the dynamic femoral neck screw. Heterotopic bone has formed around the proximal and posterior aspect of the tip of the intramedullary nail. There are no large areas of heterotopic ossification that would be presumed to cause impingement or rapid movement. The fracture within the femoral shaft is incompletely imaged on this field of view of the hip. No evidence of hip effusion. No peritrochanteric fluid collection. There is mild fatty atrophy of the gluteus medius and minimus likely from old trauma. Atherosclerotic calcifications are seen within the pelvis and proximal left thigh arteries. Impression: 1. Status post dynamic intramedullary fixation of left proximal femur intertrochanteric and subtrochanteric fracture. Visualized hardware is intact and there is no evidence of hardware complication. The majority of the fractures have not undergone interosseous bridging or substantial periosteal callus bridging. The presumed old proximal shaft fracture is incompletely imaged on this hip CT. 2. Fatty atrophy of the gluteus medius and minimus is likely due to old trauma and disuse. Dictated by: Dictated on workstation # [id number]
== END ==
LOC: RAD 13:01
PROVIDERS: ATTEND Physician Assistant
DX: M62.58 Muscle wasting and atrophy, not elsewhere classified, other site (principal); Z87.81 Personal history of (healed) traumatic fracture; Z98.890 Other specified postprocedural states
CPT/HCPCS: 73700

== ENCOUNTER → 2017-10-20 | Outpatient (CLI) | payer MEDICARE, OTHER ==
[~2017-10-20] MED LIST changes: +RT-ALBUTEROL SULF 2.5 MG/3 ML PRE-MIX VIAL INH ONE
== END ==
LOC: RAD 13:39
PROVIDERS: ATTEND Nurse Practitioner Family
DX: J44.9 Chronic obstructive pulmonary disease, unspecified (principal)
CPT/HCPCS: 94060; 94729

== ENCOUNTER 2020-02-14 07:30 | Emergency (ER) | payer MEDICARE, OTHER ==
[~2020-02-14] VITALS: Ht 162.5 cm; Wt 105.5 kg
[~2020-02-14 07:30] MED LIST changes: -DULO60CA58 PO; +DULO60CA59 PO; -RT-ALBUTEROL SULF 2.5 MG/3 ML PRE-MIX VIAL INH ONE
--- NOTE | 2020-02-14 08:52 | ED Fall/Injury ---
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 ABRASION RO R ELBOW AND KNEE. Source: patient Exam Limitations: no limitations History of Present Illness Date Seen by Provider: Feb 14, 2020 Time Seen by Provider: 08:28 Initial Comments Here with report of [facility]. States that she was getting dressed to go to the eye doctor for injection for macular degeneration. She tried to stand up to a marble her dressed down and got dizzy. She is frequently dizzy. She had forgot to lock her wheelchair and when she reached back to chair pushed back and she fell to the ground onto her right side. Has abrasion to the right elbow, right knee and contusion to the right forehead. She did have a nosebleed that resolved after about 15 minutes. She is on Plavix. She states that she really wants to go back home. Occurred: this morning (about 7 AM) Severity: mild Injuries/Pain Location: head, upper extremity, lower extremity Context: lost balance Loss of Consciousness: no loss of consciousness Modifying Factors: Worse With Movement Associated Symptoms (Fall): No Chest Pain, No Confusion, No Nausea/Vomiting, No Neck Pain, No Shortness of Air, No Slurred Speech, No Vision Changes Allergies and Home Medications Allergies Coded Allergies: amlodipine (Verified Allergy, Unknown, 04/09/17) influenza virus vaccine, specific (Verified Allergy, Unknown, 04/09/17) loratadine (Verified Allergy, Unknown, 04/09/17) metformin (Verified Allergy, Unknown, 04/09/17) niacin (Verified Allergy, Unknown, 04/09/17) Home Medications Acetaminophen 500 Mg Tablet, 1,000 MG PO HS, (Reported) TAKES 2 (500MG) TABLETS Aspirin 325 Mg Tablet., 325 MG PO DAILY, (Reported) Bethanechol Chloride 25 Mg Tablet, 25 MG PO BID Prescribed by: SHWETA FRANKS on 04/15/17 0999 Carvedilol 25 Mg Tablet, 25 MG PO BID, (Reported) Clopidogrel Bisulfate 75 Mg Tablet, 75 MG PO DAILY, (Reported) Cranberry Extract 250 Mg Capsule, 250 MG PO BID, (Reported) Dextran 70/Hypromellose 15 Ml Drops, 1 DROP OU TID, (Reported) Dextran/Hypromellose/Glycerin 15 Ml Drops, 1 DROP OU PRN PRN for DRY EYES, (Reported) Docusate Sodium 100 Mg Capsule, 100 MG PO DAILY PRN for CONSTIPATION-1ST LINE, (Reported) Duloxetine HCl 60 Mg Capsule.dr, 60 MG PO HS, (Reported) Glipizide 5 Mg Tablet, 5 MG PO 1200, (Reported) Glucosamine/D3/Boswellia Vijaya 1 Each Tablet, 1 TAB PO TID, (Reported) Hydralazine HCl 25 Mg Tablet, 25 MG PO TID, (Reported) Hydrochlorothiazide 50 Mg Tablet, 50 MG PO DAILY PRN for HTN, (Reported) Insulin Glargine,Hum.rec.anlog 100 Unit/1 Ml Vial, 60 UNITS SC DAILY, (Reported) L. Acidophilus/Bifido Longum 15 Mg Capsule.dr, 1 CAP PO BID, (Reported) 7 DAY THERAPY STARTED 04-04-17 Levothyroxine Sodium 50 Mcg Tablet, 50 MCG PO DAILY, (Reported) Lutein/Zeaxanthin 1 Each Capsule, 1 CAP PO DAILY, (Reported) Melatonin/Pyridoxine 1 Each Tablet, 5 MG PO HS, (Reported) Naproxen Sodium 220 Mg Tablet, 220 MG PO DAILY, (Reported) Naproxen Sodium 220 Mg Tablet, 220 MG PO BID PRN for PAIN-MILD, (Reported) Oxycodone HCl/Acetaminophen 1 Each Tablet, 1 TAB PO Q4H PRN for PAIN-MODERATE Prescribed by: SHWETA FRANKS on 04/15/17 0935 Pantoprazole Sodium 40 Mg Tablet.dr, 40 MG PO DAILY, (Reported) Quetiapine Fumarate 25 Mg Tablet, 12.5 MG PO HS, (Reported) TAKES 1/2 (25MG) TABLET Quetiapine Fumarate 25 Mg Tablet, 25 MG PO DAILY PRN for ANXIETY, (Reported) Patient Home Medication List Home Medication List Reviewed: Yes Review of Systems Review of Systems Constitutional: see HPI; No chills, No fever Eyes: See HPI, Other (contusion to the right brow and upper lid) Ears, Nose, Mouth, Throat: denies ear pain; epistaxis Respiratory: no symptoms reported Cardiovascular: no symptoms reported Musculoskeletal: No back pain, No neck pain Skin: change in color, lesions (abrasion right elbow and knee) Past Uybkqbd-Gsdltq-Dcbofs Hx Past Med/Social Hx: Reviewed Nursing Past Med/Soc Hx Patient Social History Alcohol Use: Denies Use Recreational Drug Use: No Smoking Status: Never a Smoker 2nd Hand Smoke Exposure: No Recent Foreign Travel: No Contact w/Someone Who Travel: No Recent Infectious Disease Expo: No Recent Hopitalizations: No Immunizations Up To Date Date of Pneumonia Vaccine: Nov 13, 2016 Seasonal Allergies Seasonal Allergies: No Past Medical History Surgeries: Yes (1 REMOVED OVARY) Orthopedic Respiratory: No Cardiac: Yes Coronary Artery Disease, Hypertension Neurological: Yes Neuropathy Reproductive Disorders: No Female Reproductive Disorders: Denies Sexually Transmitted Disease: No HIV/AIDS: No Genitourinary: Yes (RENAL ARTERY OCCLUDED) UTI-Chronic Gastrointestinal: No (GERDS) Gastroesophageal Reflux Musculoskeletal: Yes Degenerate Disk Disease, Arthritis, Chronic Back Pain, Fractures Endocrine: Yes Diabetes, Non-Insulin dep HEENT: No Loss of Vision: Denies Hearing Impairment: Denies Cancer: No Psychosocial: No Sleep Difficulties, Anxiety, Depression Integumentary: No Blood Disorders: No Adverse Reaction/Blood Tranf: Yes Family Medical History Reviewed Nursing Family Hx Cardiovascular disease 19 MOTHER Diabetes mellitus 19 MOTHER G8 BROTHER G8 BROTHER Hypertension 19 FATHER Heart Disease, Cancer, Diabetes, Hypertension Physical Exam Vital Signs Vital Signs - First Documented 02/14/20 07:31 Temp 36.5 Pulse 63 Resp 18 B/P (MAP) 156/64 (94) Pulse Ox 95 O2 Delivery Nasal Cannula O2 Flow Rate 2.00 Capillary Refill : Less Than 3 Seconds Height, Weight, BMI Height: 5'5.00" Weight: 221lbs. 0.0oz. 100.619541ql; 39.00 BMI Method:Stated General Appearance: WD/WN, no apparent distress, obese HEENT: PERRL/EOMI, pharynx normal, other (contusion to right brow and upper lid without laceration) Neck: non-tender, full range of motion, supple, normal inspection Cardiovascular: regular rate, rhythm, no murmur Respiratory: lungs clear, normal breath sounds Gastrointestinal: non tender, soft Back: normal inspection, no CVA tenderness, no vertebral tenderness Extremities: other (abrasions noted to right elbow and right knee. Full range of motion to those extremities without difficulty or significant pain.) Neurologic/Psychiatric: alert, oriented x 3 Skin: warm/dry, ecchymosis (right brow as described above), other (2 x 3 cm abrasion to the right elbow and anterior right knee.) Sheryl Coma Score Best Eye Response: (4) Open Spontaneously Best Verbal Response: (5) Oriented Best Motor Response: (6) Obeys Commands Progress/Results/Core Measures Results/Orders My Orders Orders - MATTHEW JAY MD Ct Head/Cervical Spine Wo (02/14/20 07:39) Vital Signs/I&O 02/14/20 07:31 Temp 36.5 Pulse 63 Resp 18 B/P (MAP) 156/64 (94) Pulse Ox 95 O2 Delivery Nasal Cannula O2 Flow Rate 2.00 Blood Pressure Mean: 94 Progress Progress Note : Progress Note Seen and evaluated. CT head and neck ordered. Epistaxis has stopped and no rebleeding noted. Monitor patient. 904: CT results noted and reviewed. Question acute on chronic nasal fracture. She's got no significant deformity and bleeding is stopped. Patient informed but nothing to be done at this point. She can follow up with Dr. Cuevas if needed. [facility] back to [facility] with return precautions. Patient verbalize understanding instructions and agreement with plan. Diagnostic Imaging Diagonstic Imaging: CT Plain Films/CT/US/NM/MRI: c-spine, head Comments NAME: SHAMIKA STONE [facility] REC#: [id number] PT STATUS: REG ER : 1935 PHYSICIAN: MATTHEW JAY MD ADMIT DATE: 02/14/20/ER Draft Date of Exam:02/14/20 CT HEAD/CERVICAL SPINE WO CLINICAL INDICATION: Patient is status post fall this morning. Patient's right eye is bruised and swollen. EXAM: Axial Head CT without IV contrast with sagittal and coronal reformations. Axial CT scan of the cervical spine with sagittal and coronal reformations. Auto Exposure Controls were utilized during the CT exam to meet ALARA standards for radiation dose reduction. COMPARISON: Head CT without contrast dated 04/09/2017. FINDINGS: HEAD CT: There is no evidence of acute cerebral infarct, intracranial hemorrhage, or gross mass effect. The brain parenchymal volume appears appropriate for patient's age. Again seen are diffuse patchy and confluent areas of low-attenuation white matter changes involving both cerebral hemispheres and left cerebellar region, likely related to chronic small vessel ischemic disease. There are stable small areas of chronic cerebral infarcts scattered about both cerebral hemispheres near the vertex. Stable mildly prominent perivascular space versus chronic lacunar infarct in the left basal ganglia region. There is normal wong-white matter distinction. There is no significant midline shift or herniation. There is no evidence of hydrocephalus. The basal cisterns are unremarkable. There is a moderate amount of extracranial soft tissue swelling in the right forehead/right periorbital region. All of the swelling is preseptal. There is no retrobulbar hematoma. There is no globe abnormality. There is slight bony irregularity involving the right and left nasal bone regions near the nasal maxillary suture which appears minimally increased compared to the prior study. There is no significant soft tissue swelling adjacent to the region. This is of unknown age. Correlation for pain in this region would better evaluate. Otherwise, there is no skull or maxillofacial fracture visualized. There is consolidation of the sphenoid sinus and near complete consolidation of the left maxillary sinus with air/fluid level. There is a small amount of consolidation involving the left mastoid air cells. CERVICAL SPINE CT: There is no acute cervical spine fracture. There is grade 1 anterolisthesis of C2 on C3 and C3 on C4. There are severely hypertrophic anterior spurs seen from the C3 through T2 level which cause encroachment upon the posterior hypopharyngeal region. The visualized upper lung [place] are clear. There is no significant neck soft tissue abnormality. There is multilevel mild to moderate central canal narrowing at the C4 through C6 levels. There is moderate to severe bilateral neuroforaminal narrowing seen from the C3 through T1 levels. IMPRESSION: 1. There is no evidence of intracranial blood. There is no gross acute intracranial process. 2. There is minimal bony irregularity involving the right and left nasal bone regions which has slightly increased compared to the prior study and may represent fracture of unknown age. There is no significant adjacent soft tissue swelling. Correlation for pain in this region would better evaluate. 3. Otherwise, there is no skull fracture. 4. 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 Dictated on workstation # [id number] Dict: 02/14/20 0830 Trans: 02/14/20 0900 [id number] Interpreted by: XANDER MONTALVO MD Electronically signed by: Departure Impression Primary Impression: Facial contusion Qualified Codes: S00.83XA - Contusion of other part of head, initial encounter Additional Impressions: Multiple abrasions Epistaxis Nasal bones, closed fracture Qualified Codes: S02.2XXA - Fracture of nasal bones, initial encounter for closed fracture Disposition: 01 HOME, SELF-CARE Condition: Improved Departure-Patient Inst. Decision time for Depature: 09:07 Referrals: BERTHA CUEVAS MD, HOLLY A MD (PCP/Family) Primary Care Physician Patient Instructions: Nosebleeds (DC), Minor Head Injury, Skin Abrasions (DC), Nose Fracture Add. Discharge Instructions: All discharge instructions reviewed with patient and/or family. Voiced understanding. Continue home medications as previously prescribed. Follow-up with your doctor for recheck and further evaluation regarding the dizziness. You may follow-up with Dr. Cuevas for recheck and further evaluation do to questionable finding of acute on chronic nondisplaced nasal bone fracture. Do not blow your nose for the next few days. Return for worse pain, fever, vomiting, weakness, breathing problems or other concerns as needed. MATTHEW JAY MD Feb 14, 2020 08:52
--- NOTE | 2020-02-14 09:01 | Diagnostic Imaging Report ---
CLINICAL INDICATION: Patient is status post fall this morning. Patient's right eye is bruised and swollen. EXAM: Axial Head CT without IV contrast with sagittal and coronal reformations. Axial CT scan of the cervical spine with sagittal and coronal reformations. Auto Exposure Controls were utilized during the CT exam to meet ALARA standards for radiation dose reduction. COMPARISON: Head CT without contrast dated 04/09/2017. FINDINGS: HEAD CT: There is no evidence of acute cerebral infarct, intracranial hemorrhage, or gross mass effect. The brain parenchymal volume appears appropriate for patient's age. Again seen are diffuse patchy and confluent areas of low-attenuation white matter changes involving both cerebral hemispheres and left cerebellar region, likely related to chronic small vessel ischemic disease. There are stable small areas of chronic cerebral infarcts scattered about both cerebral hemispheres near the vertex. Stable mildly prominent perivascular space versus chronic lacunar infarct in the left basal ganglia region. There is normal wong-white matter distinction. There is no significant midline shift or herniation. There is no evidence of hydrocephalus. The basal cisterns are unremarkable. There is a moderate amount of extracranial soft tissue swelling in the right forehead/right periorbital region. All of the swelling is preseptal. There is no retrobulbar hematoma. There is no globe abnormality. There is slight bony irregularity involving the right and left nasal bone regions near the nasal maxillary suture which appears minimally increased compared to the prior study. There is no significant soft tissue swelling adjacent to the region. This is of unknown age. Correlation for pain in this region would better evaluate. Otherwise, there is no skull or maxillofacial fracture visualized. There is consolidation of the sphenoid sinus and near complete consolidation of the left maxillary sinus with air/fluid level. There is a small amount of consolidation involving the left mastoid air cells. CERVICAL SPINE CT: There is no acute cervical spine fracture. There is grade 1 anterolisthesis of C2 on C3 and C3 on C4. There are severely hypertrophic anterior spurs seen from the C3 through T2 level which cause encroachment upon the posterior hypopharyngeal region. The visualized upper lung [place] are clear. There is no significant neck soft tissue abnormality. There is multilevel mild to moderate central canal narrowing at the C4 through C6 levels. There is moderate to severe bilateral neuroforaminal narrowing seen from the C3 through T1 levels. IMPRESSION: 1. There is no evidence of intracranial blood. There is no gross acute intracranial process. 2. There is minimal bony irregularity involving the right and left nasal bone regions which has developed in interim compared to the prior study and may represent fracture of unknown age. There is no significant adjacent soft tissue swelling. Correlation for pain in this region would better evaluate. 3. Otherwise, there is no skull fracture. 4. 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 Dictated by: Dictated on workstation # [id number]
--- NOTE | 2020-02-14 09:32 | NUR ---
JJ DIAMOND WILL COME GET HER.
[2020-02-14 10:17] VITALS: BP 193/87
== END 2020-02-14 10:19 | disposition home or self-care (01) ==
LOC: EDUNIT# 07:30 → ER 07:31
DX: S02.2XXA Fracture of nasal bones, initial encounter for closed fracture (principal); S00.83XA Contusion of other part of head, initial encounter; S50.311A Abrasion of right elbow, initial encounter; S80.211A Abrasion, right knee, initial encounter; I10 Essential (primary) hypertension; E11.40 Type 2 diabetes mellitus with diabetic neuropathy, unspecified; K21.9 Gastro-esophageal reflux disease without esophagitis; I25.10 Atherosclerotic heart disease of native coronary artery without angina pectoris; F41.9 Anxiety disorder, unspecified; F32.9 Major depressive disorder, single episode, unspecified; R40.2142 Coma scale, eyes open, spontaneous, at arrival to emergency department; R40.2252 Coma scale, best verbal response, oriented, at arrival to emergency department; R40.2362 Coma scale, best motor response, obeys commands, at arrival to emergency department; Z88.8 Allergy status to other drugs, medicaments and biological substances; Z88.7 Allergy status to serum and vaccine; Z79.82 Long term (current) use of aspirin; Z79.02 Long term (current) use of antithrombotics/antiplatelets; Z79.4 Long term (current) use of insulin; Z82.49 Family history of ischemic heart disease and other diseases of the circulatory system; W18.39XA Other fall on same level, initial encounter; Y92.129 Unspecified place in nursing home as the place of occurrence of the external cause
CPT/HCPCS: 70450; 72125

== ENCOUNTER 2021-06-24 22:27 | Emergency (ER) | payer MEDICARE, OTHER ==
[~2021-06-24] VITALS: Ht 163 cm; Wt 106.0 kg
[~2021-06-24 22:27] MED LIST changes: -HYDR50TA3 PO; +HYDR50TA6 PO; -OXYC-471 PO; +OXYC1TAB11 PO; -PANT40TA3 PO; +PANT40TA52 PO; +QUET25TA35 PO; -QUET25TA73 PO
[2021-06-24] MEDS ORDERED: NS IV 1000 ML 1,000 ML IV STA (22:38)
[2021-06-24] MEDS ORDERED: FAMOTIDINE 20MG/2ML IV (PEPCID) IV STA (22:38)
[2021-06-24] MEDS ORDERED: ANTACID SUSP 30 ML UDC (MYLANTA) PO ONE (22:45)
[2021-06-24] MEDS ORDERED: PANTOPRAZOLE 40 MG (PROTONIX) VIAL IV ONE (22:45)
[2021-06-24] MEDS ORDERED: morphine INJ 10 MG/ML 1ML (SYR OR VIAL) IVP ONE ×2 (22:45→23:15)
[2021-06-24] MEDS ORDERED: ONDANSETRON 4 MG/2 ML (SDV) Z0FRAN IVP ONE (22:45)
[2021-06-24] MEDS ORDERED: LIDOCAINE 2% VISCOUS 15 ML UDC PO ONE (22:45)
[2021-06-24 22:46] LABS: BASOPHILS % (AUTO) 0 % (0-10); EOSINOPHILS % (AUTO) 2 % (0-10); NEUTROPHILS % (AUTO) 68 % (42-75)
[2021-06-24 22:48] LABS: EOSINOPHILS # (AUTO) 0.2 10^3/uL (0.0-0.3); HEMATOCRIT 37 % (35-52); HEMOGLOBIN 11.5 g/dL (11.5-16.0); LYMPHOCYTES % (AUTO) 20 % (12-44); MEAN CORPUSCULAR HEMOGLOBIN 29 pg (25-34); MEAN CORPUSCULAR HGB CONC 31 g/dL (32-36); MEAN CORPUSCULAR VOLUME 91 fL (80-99); MEAN PLATELET VOLUME 13.8 fL (9.0-12.2); MONOCYTES # (AUTO) 1.4 10^3/uL (0.0-1.0); MONOCYTES % (AUTO) 10 % (0-12); NEUTROPHILS # (AUTO) 10.2 10^3/uL (1.8-7.8); PLATELET COUNT 199 10^3/uL (130-400); WHITE BLOOD COUNT 14.9 10^3/uL (4.3-11.0)
[2021-06-24 22:51] LABS: ALBUMIN 3.1 GM/DL (3.2-4.5)
[2021-06-24 22:52] LABS: AMYLASE 51 U/L (25-125); CHLORIDE 98 MMOL/L (98-107); POTASSIUM 4.6 MMOL/L (3.6-5.0); SODIUM 136 MMOL/L (135-145)
[2021-06-24 22:53] LABS: CALCIUM 9.1 MG/DL (8.5-10.1)
[2021-06-24 22:54] LABS: GLUCOSE 184 MG/DL (70-105); TOTAL PROTEIN 7.4 GM/DL (6.4-8.2)
[2021-06-24 22:55] LABS: CARBON DIOXIDE 25 MMOL/L (21-32)
[2021-06-24 22:56] LABS: BILIRUBIN,TOTAL 0.3 MG/DL (0.1-1.0)
[2021-06-24 22:57] LABS: ALKALINE PHOSPHATASE 92 U/L (40-136)
[2021-06-24 22:58] LABS: CREATININE SERUM 1.88 MG/DL (0.60-1.30); GFR ESTIMATED 25
[2021-06-24 22:59] LABS: BUN/CREATININE RATIO 21
[2021-06-24 23:00] LABS: ALANINE AMINOTRANSFERASE 16 U/L (0-55)
[2021-06-24 23:01] LABS: LIPASE 41 U/L (8-78)
--- NOTE | 2021-06-24 23:08 | Diagnostic Imaging Report ---
INDICATION: Epigastric pain. Frontal chest obtained at 10:49 p.m. and compared to 04/09/2017. FINDINGS: There is poor inspiration. The heart is borderline in size. There is elevation of right hemidiaphragm with some mild right basilar atelectasis. The left lung is clear. There are severe chronic changes in both shoulders which are similar to the prior study. IMPRESSION: Cardiomegaly with poor inspiration. There is right hemidiaphragmatic elevation with some mild right basilar atelectasis. There are severe chronic changes in both shoulders. Dictated by: Dictated on workstation # [id number]
[2021-06-24] MEDS ORDERED: hydrALAZINE (APESOLINE) 20 MG/ML VIAL IV ONE (23:15)
[2021-06-24 23:24] LABS: EOSINOPHILS % (MANUAL) 3 %; LYMPHOCYTES % (MANUAL) 21 %; MONOCYTES % (MANUAL) 12 %; NEUTROPHILS % (MANUAL) 64 %
--- NOTE | 2021-06-24 23:44 | ED Abdominal Pain ---
General Chief Complaint: Chest Pain Stated Complaint: INDIGESTION Nursing Triage Note: BROUGTHT IN BY [facility] FOR C/O EPIGASTRIC PAIN ALL DAY. Source of Information: Patient, EMS Exam Limitations: No Limitations History of Present Illness Date Seen by Provider: Jun 24, 2021 Time Seen by Provider: 22:30 Initial Comments Here by EMS with severe epigastric pain that has been going on all day. They have given all of her prescribed medicines at the long-term care facility without significant improvement. She resides at [facility]. States that she has long history of reflux and acid problems and sometimes gets like this. Also has history of hypertension. She states that this pain is very bad and they have not been able to get it controlled all day. She does have history of previous heart attacks as well as diabetes. Denies nausea or vomiting and has had a bowel movement today. She is very anxious and worried about chest pain but also worried about epigastric pain. Timing/Duration: 12 Hours Severity/Quality: Moderate, Severe, Burning Location: Epigastric Radiation: Chest (Tightness) Activities at Onset: None Modifying Factors: Worsens With Eating, Worsens With Palpation Associated Symptoms: No Back Pain; Chest Pain; No Fever/Chills; Heartburn; No Nausea/Vomiting, No Shortness of Air, No Swelling/Mass in Abdomen, No Weakness Allergies and Home Medications Allergies Coded Allergies: amlodipine (Verified Allergy, Unknown, 04/09/17) influenza virus vaccine, specific (Verified Allergy, Unknown, 04/09/17) loratadine (Verified Allergy, Unknown, 04/09/17) metformin (Verified Allergy, Unknown, 04/09/17) niacin (Verified Allergy, Unknown, 04/09/17) Patient Home Medication List Home Medication List Reviewed: Yes Acetaminophen (Tylenol Extra Strength) 500 Mg Tablet, 1,000 MG PO HS, (Reported) Entered as Reported by: CONNER OLIVO on 04/09/17 1115 Aspirin (Aspirin EC) 325 Mg Tablet.dr, 325 MG PO DAILY, (Reported) Entered as Reported by: CONNER OLIVO on 04/09/17 1115 Bethanechol Chloride (Bethanechol Chloride) 25 Mg Tablet, 25 MG PO BID Prescribed by: SHWETA SIMMONS on 04/15/17 0935 Carvedilol (Carvedilol) 25 Mg Tablet, 25 MG PO BID, (Reported) Entered as Reported by: CONNER OLIVO on 04/09/171114 Clopidogrel Bisulfate (Clopidogrel) 75 Mg Tablet, 75 MG PO DAILY, (Reported) Entered as Reported by: CONNER OLIVO on 04/09/171114 Cranberry Extract (Cranberry) 250 Mg Capsule, 250 MG PO BID, (Reported) Entered as Reported by: CONNER OLIVO on 04/09/171114 Dextran 70/Hypromellose (Genteal Tears 0.1%-0.3% Drop) 15 Ml Drops, 1 DROP OU TID, (Reported) Entered as Reported by: CONNER OLIVO on 04/09/171114 Dextran/Hypromellose/Glycerin (Genteal Tears 0.1%-0.2%-0.3%) 15 Ml Drops, 1 DROP OU PRN PRN for DRY EYES, (Reported) Entered as Reported by: CONNER OLIVO on 04/09/171114 Docusate Sodium (Colace) 100 Mg Capsule, 100 MG PO DAILY PRN for CONSTIPATION- 1ST LINE, (Reported) Entered as Reported by: CONNER OLIVO on 04/09/171114 Duloxetine HCl (Duloxetine HCl) 60 Mg Capsule.dr, 60 MG PO HS, (Reported) Entered as Reported by: CONNER OLIVO on 04/09/171114 Glipizide (Glipizide) 5 Mg Tablet, 5 MG PO 1200, (Reported) Entered as Reported by: CONNER OLIVO on 04/09/171114 Glucosamine/D3/Boswellia Vijaya (Glucosamine Complex Tablet) 1 Each Tablet, 1 TAB PO TID, (Reported) Entered as Reported by: CONNER OLIVO on 04/09/171114 Hydralazine HCl (Hydralazine HCl) 25 Mg Tablet, 25 MG PO TID, (Reported) Entered as Reported by: CONNER OLIVO on 04/09/171114 Hydrochlorothiazide (Hydrochlorothiazide) 50 Mg Tablet, 50 MG PO DAILY PRN for HTN, (Reported) Entered as Reported by: CONNER OLIVO on 04/09/171114 Insulin Glargine,Hum.rec.anlog (Lantus) 100 Unit/1 Ml Vial, 60 UNITS SC DAILY, (Reported) Entered as Reported by: CONNER OLIVO on 04/09/171114 L. Acidophilus/Bifido Longum (Sm Acidophilus 15 mg Yadi Cap) 15 Mg Capsule.dr, 1 CAP PO BID, (Reported) Entered as Reported by: CONNER OLIVO on 04/09/171114 Levothyroxine Sodium (Levothyroxine Sodium) 50 Mcg Tablet, 50 MCG PO DAILY, (Reported) Entered as Reported by: CONNER OLIVO on 04/09/171114 Lutein/Zeaxanthin (Lutein-Zeaxanthin 25-5 mg Sfgl) 1 Each Capsule, 1 CAP PO DAILY, (Reported) Entered as Reported by: CONNER OLIVO on 04/09/171114 Melatonin/Pyridoxine (Melatonin 5 mg Tablet) 1 Each Tablet, 5 MG PO HS, (Reported) Entered as Reported by: CONNER OLIVO on 04/09/171114 Naproxen Sodium (Aleve) 220 Mg Tablet, 220 MG PO DAILY, (Reported) Entered as Reported by: CONNER OLIVO on 04/09/171114 Naproxen Sodium (Aleve) 220 Mg Tablet, 220 MG PO BID PRN for PAIN-MILD, (Reported) Entered as Reported by: CONNER OLIVO on 04/09/171114 Oxycodone HCl/Acetaminophen (Oxycodone-Acetaminophen 5-325) 1 Each Tablet, 1 TAB PO Q4H PRN for PAIN-MODERATE Prescribed by: SHWETA SIMMONS on 04/15/17 0935 Pantoprazole Sodium (Pantoprazole Sodium) 40 Mg Tablet.dr, 40 MG PO DAILY, (Reported) Entered as Reported by: CONNER OLIVO on 04/09/171114 Quetiapine Fumarate (Quetiapine Fumarate) 25 Mg Tablet, 12.5 MG PO HS, (Reported) Entered as Reported by: CONNER OLIVO on 04/09/171114 Quetiapine Fumarate (Seroquel) 25 Mg Tablet, 25 MG PO DAILY PRN for ANXIETY, (Reported) Entered as Reported by: CONNER OLIVO on 04/09/171114 Review of Systems Review of Systems Constitutional: see HPI; No chills, No fever EENTM: No Symptoms Reported Respiratory: Denies Cough, Denies Shortness of Air Cardiovascular: Chest Pain; Denies Edema Gastrointestinal: Abdominal Pain; Denies Vomiting Genitourinary: No Symptoms Reported Musculoskeletal: No back pain, No muscle pain Skin: no symptoms reported Psychiatric/Neurological: Anxiety; Denies Weakness All Other Systems Reviewed Negative Unless Noted: Yes Past Olhbadb-Mkilth-Zsuiqf Hx Patient Social History Tobacco Use?: No Substance use?: No Alcohol Use?: No Pt feels they are or have been: No Seasonal Allergies Seasonal Allergies: No Past Medical History Surgery/Hospitalization HX: MO,STENTS,GERD,HIGH LIPIDS, DM,ANXIETY Surgeries: Yes (1 REMOVED OVARY) Orthopedic Respiratory: No Cardiac: Yes Coronary Artery Disease, Hypertension Neurological: Yes Neuropathy Reproductive Disorders: No Female Reproductive Disorders: Denies Sexually Transmitted Disease: No HIV/AIDS: No Genitourinary: Yes (RENAL ARTERY OCCLUDED) UTI-Chronic Gastrointestinal: No (GERDS) Gastroesophageal Reflux Musculoskeletal: Yes Degenerate Disk Disease, Arthritis, Chronic Back Pain, Fractures Endocrine: Yes Diabetes, Non-Insulin dep HEENT: No Loss of Vision: Denies Hearing Impairment: Denies Cancer: No Psychosocial: No Sleep Difficulties, Anxiety, Depression Integumentary: No Blood Disorders: No Adverse Reaction/Blood Tranf: Yes Family Medical History Reviewed Nursing Family Hx Cardiovascular disease 19 MOTHER Diabetes mellitus 19 MOTHER G8 BROTHER G8 BROTHER Hypertension 19 FATHER Heart Disease, Cancer, Diabetes, Hypertension Physical Exam Vital Signs Vital Signs - First Documented 06/24/21 22:30 Temp 36.5 Pulse 88 Resp 20 B/P (MAP) 216/106 (142) Pulse Ox 95 O2 Delivery Nasal Cannula O2 Flow Rate 3.00 Capillary Refill : Less Than 3 Seconds Height/Weight/BMI Height: 5'5.00" Weight: 221lbs. 0.0oz. 100.692810py; 39.00 BMI Method:Stated General Appearance: WD/WN, moderate distress HEENT: PERRL/EOMI, pharynx normal Neck: full range of motion, supple Respiratory: lungs clear, normal breath sounds Cardiovascular: regular rate, rhythm, no murmur Gastrointestinal: soft, tenderness (Mild epigastric) Extremities: non-tender, normal inspection Back: normal inspection, no CVA tenderness, no vertebral tenderness Neurologic/Psychiatric: alert, normal mood/affect, oriented x 3 Skin: normal color, warm/dry Progress/Results/Core Measures Results/Orders Lab Results Laboratory Tests Test 06/24/21 22:35 10/11/21 00:42 Range/Units White Blood Count 14.9 H 4.3-11.0 10^3/uL Red Blood Count 4.02 3.80-5.11 10^6/uL Hemoglobin 11.5 11.5-16.0 g/dL Hematocrit 37 35-52 % Mean Corpuscular Volume 91 80-99 fL Mean Corpuscular Hemoglobin 29 25-34 pg Mean Corpuscular Hemoglobin Concent 31 L 32-36 g/dL Red Cell Distribution Width 14.6 H 10.0-14.5 % Platelet Count 199 130-400 10^3/uL Mean Platelet Volume 13.8 H 9.0-12.2 fL Immature Granulocyte % (Auto) 1 % Neutrophils (%) (Auto) 68 42-75 % Lymphocytes (%) (Auto) 20 12-44 % Monocytes (%) (Auto) 10 0-12 % Eosinophils (%) (Auto) 2 0-10 % Basophils (%) (Auto) 0 0-10 % Neutrophils # (Auto) 10.2 H 1.8-7.8 10^3/uL Lymphocytes # (Auto) 3.0 1.0-4.0 10^3/uL Monocytes # (Auto) 1.4 H 0.0-1.0 10^3/uL Eosinophils # (Auto) 0.2 0.0-0.3 10^3/uL Basophils # (Auto) 0.0 0.0-0.1 10^3/uL Immature Granulocyte # (Auto) 0.1 0.0-0.1 10^3/uL Neutrophils % (Manual) 64 % Lymphocytes % (Manual) 21 % Monocytes % (Manual) 12 % Eosinophils % (Manual) 3 % Percent Immature Platelet Fraction 15.0 H 0.0-7.6 % Sodium Level 136 135-145 MMOL/L Potassium Level 4.6 3.6-5.0 MMOL/L Chloride Level 98 98-107 MMOL/L Carbon Dioxide Level 25 21-32 MMOL/L Anion Gap 13 5-14 MMOL/L Blood Urea Nitrogen 40 H 7-18 MG/DL Creatinine 1.88 H 0.60-1.30 MG/DL Estimat Glomerular Filtration Rate 25 BUN/Creatinine Ratio 21 Glucose Level 184 H 70-105 MG/DL Calcium Level 9.1 8.5-10.1 MG/DL Corrected Calcium 9.8 8.5-10.1 MG/DL Total Bilirubin 0.3 0.1-1.0 MG/DL Aspartate Amino Transf (AST/SGOT) 20 5-34 U/L Alanine Aminotransferase (ALT/SGPT) 16 0-55 U/L Alkaline Phosphatase 92 40-136 U/L Troponin I < 0.028 < 0.028 <0.028 NG/ML Total Protein 7.4 6.4-8.2 GM/DL Albumin 3.1 L 3.2-4.5 GM/DL Amylase Level 51 25-125 U/L Lipase 41 8-78 U/L My Orders Orders - MATTHEW JAY MD Amylase (06/24/21 22:38) Cbc With Automated Diff (06/24/21:38) Comprehensive Metabolic Panel (06/24/21:38) Lipase (06/24/21 22:38) Troponin I (06/24/21 22:38) Ed Iv/Invasive Line Start (06/24/21 22:38) Ekg Tracing (06/24/21:38) Ondansetron Injection (Zofran Injectio (06/24/21 22:45) Ns Iv 1000 Ml (Sodium Chloride 0.9%) (06/24/21 22:38) Famotidine Injection (Pepcid Injection) (06/24/21 22:38) Ed Iv/Invasive Line Start (06/24/21 22:38) Morphine Injection (Morphine Injection (06/24/21 22:45) Chest 1 View, Ap/Pa Only (06/24/21 22:38) Pantoprazole Injection (Protonix Injecti (06/24/21 22:45) Lidocaine 2% Viscous 15 Ml (Xylocaine Vi (06/24/21 22:45) Antacid Suspension (Mylanta Suspension (06/24/21 22:45) Manual Differential (06/24/21 22:35) Morphine Injection (Morphine Injection (06/24/21 23:15) Hydralazine Injection (Apresoline Inject (06/24/21 23:15) Sucralfate Tablet (Carafate Tablet) (06/25/21 00:30) Troponin I (06/25/21 00:37) Promethazine Injection (Phenergan Injec (06/25/21 00:43) Ct Abdomen/Pelvis Wo (06/25/21 02:06) Medications Given in ED Current Medications Medications Dose Ordered Sig/Hany Route Start Time Stop Time Status Last Admin Dose Admin Al Hydrox/Mg Hydrox/Simethicone 30 ml ONCE ONCE PO 06/24/21 22:45 06/24/21 22:46 DC 06/24/21 22:48 30 ML Hydralazine HCl 10 mg ONCE ONCE IV 06/24/21 23:15 06/24/21 23:16 DC 06/24/21 23:08 10 MG Lidocaine HCl 15 ml ONCE ONCE PO 06/24/21 22:45 06/24/21 22:46 DC 06/24/21 22:48 15 ML Morphine Sulfate 4 mg ONCE ONCE IVP 06/24/21 22:45 06/24/21 22:46 DC 06/24/21 22:49 4 MG Morphine Sulfate 4 mg ONCE ONCE IVP 06/24/21 23:15 06/24/21 23:16 DC 06/24/21 23:08 4 MG Ondansetron HCl 4 mg ONCE ONCE IVP 06/24/21 22:45 06/24/21 22:46 DC 06/24/21 22:48 4 MG Pantoprazole 40 mg ONCE ONCE IV 06/24/21 22:45 06/24/21 22:46 DC 06/24/21 22:49 40 MG Promethazine HCl 25 mg STK-MED ONCE .ROUTE 06/25/21 00:43 06/25/21 00:47 DC 06/25/21 00:47 12.5 MG Sucralfate 1 gm ONCE ONCE PO 06/25/21 00:30 06/25/21 00:31 DC 06/25/21 00:41 1 GM Vital Signs/I&O 06/24/21 22:30 Temp 36.5 Pulse 88 Resp 20 B/P (MAP) 216/106 (142) Pulse Ox 95 O2 Delivery Nasal Cannula O2 Flow Rate 3.00 Blood Pressure Mean: 142 Progress Progress Note : Progress Note Seen and evaluated. Chest pain protocol initiated. Patient is on aspirin and Plavix. IV initiated. Pepcid 20 mg IV, Zofran 4 mg IV, Protonix 40 mg IV morph ine 4 mg IV and GI cocktail p.o. ordered. 2330: Patient had continued pain. Repeat morphine 4 mg IV ordered and hydralazine 10 mg IV given. Initial troponin negative. She does appear to be somewhat dry. She does have mild elevation and serum creatinine. Monitor patient. 0030: We will repeat troponin. Sucralfate 1 g p.o. ordered. 0047: Patient with repeated nausea and vomiting. Phenergan 12.5 mg IV ordered. 0206: Patient still complaining of pain. CT abdomen pelvis ordered. 0400: Patient states she is feeling a little better. Still pending CT results. 0500: CT report obtained. Question of colitis in the distal colon. Patient is not tender in that area and this may represent under distention. Overall she is feeling much better. She was sade rned that she was having a heart attack and was also concerned because she would like to have more Mylanta and her medication list. I will send a copy of the note to Dr. SIMMONS. Patient would benefit potentially from upper and possibly lower endoscopy. Patient will follow up with Dr. Simmons for referral. Given her apparent long history of reflux problems, upper endoscopy seems like a reasonable approach and evaluation. She is on PPI currently as well as other antacids. She will continue that. Discharged home with return precautions. Patient verbalized understanding of instructions and agreement with plan. Currently reassured and will follow up. Initial ECG Impression Date: Jun 24, 2021 Initial ECG Impression Time: 22:46 Initial ECG Rate: 82 Initial ECG Rhythm: Normal Sinus Comment Sinus rhythm with LVH and left axis deviation. No evidence of ST elevation MO. Similar to previous of 04/09/2017. Interpreted by me. Diagnostic Imaging Diagonstic Imaging: Xray Plain Films/CT/US/NM/MRI: chest Comments [facility] [place], [place] NAME: SHAMIKA STONE [facility] REC#: [id number] PT STATUS: REG ER : 1935 PHYSICIAN: MATTHEW JAY MD ADMIT DATE: 06/24/21/ER Draft Date of Exam:06/24/21 CHEST 1 VIEW, AP/PA ONLY INDICATION: Epigastric pain. Frontal chest obtained at 10:49 p.m. and compared to 04/09/2017. FINDINGS: There is poor inspiration. The heart is borderline in size. There is elevation of right hemidiaphragm with some mild right basilar atelectasis. The left lung is clear. There are severe chronic changes in both shoulders which are similar to the prior study. IMPRESSION: Cardiomegaly with poor inspiration. There is right hemidiaphragmatic elevation with some mild right basilar atelectasis. There are severe chronic changes in both shoulders. Dictated on workstation # [id number] Dict: 06/24/21 2300 Trans: 06/24/216 [id number] Interpreted by: MAIA MATHIAS MD Electronically signed by: Aydeegonssarah Imaging: CT Plain Films/CT/US/NM/MRI: abdomen, pelvis Comments Mild wall thickening of the descending colon, correlate for colitis versus underdistention. Departure Impression Primary Impression: Epigastric abdominal pain Additional Impression: Dyspepsia Disposition: 01 HOME, SELF-CARE Condition: Improved Departure-Patient Inst. Decision time for Depature: 05:07 Referrals: SHWETA SIMMONS MD (PCP/Family) Primary Care Physician MAX DIAZ DO Patient Instructions: Severe Abdominal Pain, Adult (DC), Acid Reflux and Gastroesophageal Reflux Disease in Adults Add. Discharge Instructions: All discharge instructions reviewed with patient and/or family. Voiced understanding. Continue current medications for your acid reflux. Follow-up with Dr. Simmons for recheck and further evaluation and possible referral to a surgeon for upper endoscopy (scope). You may follow-up with the surgeon listed or of your choosing or as directed by Dr. Simmons. Return for worse pain, fever, vomiting, weakness, breathing problems or other concerns as needed. Copy Copies To 1: SHWETA SIMMONS MD, TIMOTHY D MD Jun 24, 2021 23:44
[2021-06-25] MEDS ORDERED: SUCRALFATE 1 GM (CARAFATE) TAB PO ONE (00:30)
[2021-06-25] MEDS ORDERED: PROMETHAZINE INJ 25 MG/ML (PHENERGAN) AMP ONE (00:43)
[2021-06-25 06:10] VITALS: BP 151/65
--- NOTE | 2021-06-25 06:21 | Diagnostic Imaging Report ---
PROCEDURE: CT abdomen and pelvis without contrast. TECHNIQUE: Multiple contiguous axial images were obtained through the abdomen and pelvis without the use of intravenous contrast. Auto Exposure Controls were utilized during the CT exam to meet ALARA standards for radiation dose reduction. INDICATION: Epigastric and abdominal pain. COMPARISON: 08/15/2017 FINDINGS: There is infiltrate and atelectasis in the right lung base. Left lung is clear. There is no hiatal hernia. There is advanced atherosclerosis of the abdominal aorta and visceral branch vessels. 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 The gallbladder is nonvisualized and presumed surgically absent. Solid organs are otherwise unremarkable. There is some nonspecific gas throughout the colon with constipation proximally. There is no obstruction. The small bowel is unremarkable. There is no free air or free fluid. There is a fat-containing umbilical hernia. There is diastases of the anterior abdominal wall overlying the pelvis. Urinary bladder is slightly distended. The uterus is present. Osseous structures are age-appropriate. IMPRESSION: 1. No acute abnormalities within the abdomen or pelvis.] 2. Not mentioned above diverticulosis of the sigmoid colon without diverticulitis. 3. Mild proximal colonic constipation. 4. Infiltrate and atelectasis right lung base. 5. Advanced atherosclerosis. Dictated by: Dictated on workstation # [id number]
== END 2021-06-25 06:10 | disposition home or self-care (01) ==
LOC: EDUNIT# 22:27 → ER 22:28
DX: R10.13 Epigastric pain (principal); I10 Essential (primary) hypertension; E11.9 Type 2 diabetes mellitus without complications; F41.9 Anxiety disorder, unspecified; F32.9 Major depressive disorder, single episode, unspecified; G89.29 Other chronic pain; M54.9 Dorsalgia, unspecified; K21.9 Gastro-esophageal reflux disease without esophagitis; Z79.82 Long term (current) use of aspirin; Z79.01 Long term (current) use of anticoagulants; Z79.891 Long term (current) use of opiate analgesic; Z79.899 Other long term (current) drug therapy
CPT/HCPCS: 36415; 71045; 74176; 80053; 82150; 83690; 84484; 85007; 85027; 93005

== ENCOUNTER 2021-08-28 13:00 | Emergency (ER) | payer MEDICARE, OTHER ==
[~2021-08-28] VITALS: Ht 154 cm; Wt 84.0 kg
[~2021-08-28 13:00] MED LIST changes: -BETH25TA PO; +BETH25TA2 PO
--- NOTE | 2021-08-28 13:03 | ED Abdominal Pain ---
General Stated Complaint: ABD PAIN,NAUSEA,WEAKNESS History of Present Illness Date Seen by Provider: Aug 28, 2021 Time Seen by Provider: 13:03 Initial Comments 85-year-old female presents with some nausea, abdominal pain, pruritus and generalized weakness. Patient reports that about 3 weeks ago she started developing some whole body itching and some abdominal pain with it. It is gotten worse over the last 3 weeks. She has some generalized abdominal pain, had some nausea and vomiting this morning. She does have some generalized weakness. Patient was placed on hydroxyzine couple weeks ago and had the dose increased over the last week. Patient reports that this morning she only took her tramadol and nausea medication. She refused rest of her medications because she does not feel like taking any p.o. Patient denies any diarrhea. No reports of fever or chills. Allergies and Home Medications Allergies Coded Allergies: amlodipine (Verified Allergy, Unknown, 04/09/17) influenza virus vaccine, specific (Verified Allergy, Unknown, 04/09/17) loratadine (Verified Allergy, Unknown, 04/09/17) metformin (Verified Allergy, Unknown, 04/09/17) niacin (Verified Allergy, Unknown, 04/09/17) Patient Home Medication List Home Medication List Reviewed: Yes Acetaminophen (Tylenol Extra Strength) 500 Mg Tablet, 1,000 MG PO HS, (Reported) Entered as Reported by: CONNER OLIVO on 04/09/17 111 Aspirin (Aspirin EC) 325 Mg Tablet.dr, 325 MG PO DAILY, (Reported) Entered as Reported by: CONNER OLIVO on 04/09/17 111 Bethanechol Chloride (Bethanechol Chloride) 25 Mg Tablet, 25 MG PO BID Prescribed by: SHWETA FRANKS on 04/15/17 0935 Carvedilol (Carvedilol) 25 Mg Tablet, 25 MG PO BID, (Reported) Entered as Reported by: CONNER OLIVO on 04/09/17 1115 Clopidogrel Bisulfate (Clopidogrel) 75 Mg Tablet, 75 MG PO DAILY, (Reported) Entered as Reported by: CONNER OLIVO on 04/09/17 111 Cranberry Extract (Cranberry) 250 Mg Capsule, 250 MG PO BID, (Reported) Entered as Reported by: CONNER OLIVO on 04/09/17 1115 Dextran 70/Hypromellose (Genteal Tears 0.1%-0.3% Drop) 15 Ml Drops, 1 DROP OU TID, (Reported) Entered as Reported by: CONNER OLIVO on 04/09/171114 Dextran/Hypromellose/Glycerin (Genteal Tears 0.1%-0.2%-0.3%) 15 Ml Drops, 1 DROP OU PRN PRN for DRY EYES, (Reported) Entered as Reported by: CONNER OLIVO on 04/09/171114 Docusate Sodium (Colace) 100 Mg Capsule, 100 MG PO DAILY PRN for CONSTIPATION- 1ST LINE, (Reported) Entered as Reported by: CONNER OLIVO on 04/09/171114 Duloxetine HCl (Duloxetine HCl) 60 Mg Capsule.dr, 60 MG PO HS, (Reported) Entered as Reported by: CONNER OLIVO on 04/09/171114 Glipizide (Glipizide) 5 Mg Tablet, 5 MG PO 1200, (Reported) Entered as Reported by: CONNER OLIVO on 04/09/171114 Glucosamine/D3/Boswellia Vijaya (Glucosamine Complex Tablet) 1 Each Tablet, 1 TAB PO TID, (Reported) Entered as Reported by: CONNER OLIVO on 04/09/171114 Hydralazine HCl (Hydralazine HCl) 25 Mg Tablet, 25 MG PO TID, (Reported) Entered as Reported by: CONNER OLIVO on 04/09/171114 Hydrochlorothiazide (Hydrochlorothiazide) 50 Mg Tablet, 50 MG PO DAILY PRN for HTN, (Reported) Entered as Reported by: CONNER OLIVO on 04/09/171114 Insulin Glargine,Hum.rec.anlog (Lantus) 100 Unit/1 Ml Vial, 60 UNITS SC DAILY, (Reported) Entered as Reported by: CONNER OLIVO on 04/09/171114 L. Acidophilus/Bifido Longum (Sm Acidophilus 15 mg Yadi Cap) 15 Mg Capsule.dr, 1 CAP PO BID, (Reported) Entered as Reported by: CONNER OLIVO on 04/09/171114 Levothyroxine Sodium (Levothyroxine Sodium) 50 Mcg Tablet, 50 MCG PO DAILY, (Reported) Entered as Reported by: CONNER OLIVO on 04/09/171114 Lutein/Zeaxanthin (Lutein-Zeaxanthin 25-5 mg Sfgl) 1 Each Capsule, 1 CAP PO DAILY, (Reported) Entered as Reported by: CONNER OLIVO on 04/09/171114 Melatonin/Pyridoxine (Melatonin 5 mg Tablet) 1 Each Tablet, 5 MG PO HS, (Repor clare) Entered as Reported by: CONNER OLIVO on 04/09/171114 Naproxen Sodium (Aleve) 220 Mg Tablet, 220 MG PO DAILY, (Reported) Entered as Reported by: CONNER OLIVO on 04/09/171114 Naproxen Sodium (Aleve) 220 Mg Tablet, 220 MG PO BID PRN for PAIN-MILD, (Reported) Entered as Reported by: CONNER OLIVO on 04/09/171114 Oxycodone HCl/Acetaminophen (Oxycodone-Acetaminophen 5-325) 1 Each Tablet, 1 TAB PO Q4H PRN for PAIN-MODERATE Prescribed by: SHWETA FRANKS on 04/15/17 0935 Pantoprazole Sodium (Pantoprazole Sodium) 40 Mg Tablet.dr, 40 MG PO DAILY, (Reported) Entered as Reported by: CONNER OLIVO on 04/09/171114 Quetiapine Fumarate (Quetiapine Fumarate) 25 Mg Tablet, 12.5 MG PO HS, (Reported) Entered as Reported by: CONNER OLIVO on 04/09/171114 Quetiapine Fumarate (Seroquel) 25 Mg Tablet, 25 MG PO DAILY PRN for ANXIETY, (Reported) Entered as Reported by: CONNER OLIVO on 04/09/171114 Review of Systems Review of Systems Constitutional: No chills, No fever; malaise, weakness Respiratory: Denies Cough, Denies Shortness of Air Cardiovascular: Denies Chest Pain, Denies Lightheadedness Gastrointestinal: Abdominal Pain; Denies Diarrhea; Nausea, Vomiting Genitourinary: No Symptoms Reported Musculoskeletal: no symptoms reported Skin: see HPI, pruritus Psychiatric/Neurological: No Symptoms Reported Endocrine: No Symptoms Reported Physical Exam Vital Signs Vital Signs - First Documented 08/28/21 13:00 Temp 36.5 Pulse 71 Resp 18 B/P (MAP) 225/78 (127) Pulse Ox 98 O2 Delivery Room Air Capillary Refill : Height/Weight/BMI Height: '" Weight: lbs. oz. kg; BMI Method: General Appearance: WD/WN, no apparent distress HEENT: PERRL/EOMI Respiratory: lungs clear, normal breath sounds Cardiovascular: normal peripheral pulses, regular rate, rhythm Gastrointestinal: soft; No distended, No guarding; tenderness (Diffuse) Extremities: normal range of motion Neurologic/Psychiatric: alert, normal mood/affect, oriented x 3 Skin: normal color, warm/dry, other (Multiple mild diffuse excoriations from patient itching) Progress/Results/Core Measures Results/Orders Lab Results Laboratory Tests Test 08/28/21 13:00 Range/Units White Blood Count 9.4 4.3-11.0 10^3/uL Red Blood Count 4.12 3.80-5.11 10^6/uL Hemoglobin 11.7 11.5-16.0 g/dL Hematocrit 36 35-52 % Mean Corpuscular Volume 88 80-99 fL Mean Corpuscular Hemoglobin 28 25-34 pg Mean Corpuscular Hemoglobin Concent 32 32-36 g/dL Red Cell Distribution Width 14.0 10.0-14.5 % Platelet Count 171 130-400 10^3/uL Mean Platelet Volume 14.1 H 9.0-12.2 fL Neutrophils (%) (Auto) 58 42-75 % Lymphocytes (%) (Auto) 29 12-44 % Monocytes (%) (Auto) 9 0-12 % Eosinophils (%) (Auto) 4 0-10 % Basophils (%) (Auto) 0 0-10 % Neutrophils # (Auto) 5.5 1.8-7.8 X 10^3 Lymphocytes # (Auto) 2.7 1.0-4.0 X 10^3 Monocytes # (Auto) 0.8 0.0-1.0 X 10^3 Eosinophils # (Auto) 0.4 H 0.0-0.3 10^3/uL Basophils # (Auto) 0.0 0.0-0.1 10^3/uL Immature Granulocyte # (Auto) 0.0-0.1 10^3/uL Sodium Level 140 135-145 MMOL/L Potassium Level 3.2 L 3.6-5.0 MMOL/L Chloride Level 102 98-107 MMOL/L Carbon Dioxide Level 23 21-32 MMOL/L Anion Gap 15 H 5-14 MMOL/L Blood Urea Nitrogen 24 H 7-18 MG/DL Creatinine 1.50 H 0.60-1.30 MG/DL Estimat Glomerular Filtration Rate 33 BUN/Creatinine Ratio 16 Glucose Level 112 H 70-105 MG/DL Calcium Level 8.9 8.5-10.1 MG/DL Corrected Calcium 9.5 8.5-10.1 MG/DL Phosphorus Level 3.7 2.3-4.7 MG/DL Magnesium Level 1.3 L 1.6-2.4 MG/DL Total Bilirubin 0.2 0.1-1.0 MG/DL Aspartate Amino Transf (AST/SGOT) 16 5-34 U/L Alanine Aminotransferase (ALT/SGPT) 6 0-55 U/L Alkaline Phosphatase 73 40-136 U/L Total Protein 7.1 6.4-8.2 GM/DL Albumin 3.2 3.2-4.5 GM/DL Lipase 39 8-78 U/L Thyroid Stimulating Hormone (TSH) 3.62 0.35-4.94 UIU/ML Free Thyroxine 0.91 0.70-1.48 NG/DL Hepatitis A IgM Antibody Non-Reactive Non-Reactive Hepatitis B Surface Antigen Non-Reactive Non-Reactive Hepatitis B Core IgM Antibody Non-Reactive Non-Reactive Hepatitis C Antibody Non-Reactive Non-Reactive My Orders Orders - RADFORD,JONNIE L DO Cbc With Automated Diff (08/28/21 13:03) Comprehensive Metabolic Panel (08/28/21 13:03) Hepatitis Panel Acute (08/28/21 13:03) Lipase (08/28/21 13:03) Magnesium (08/28/21 13:03) Ua Culture If Indicated (08/28/21 13:03) Phosphorus (08/28/21 13:03) Acute Abd Series (08/28/21 13:03) Hydroxyzine Cap/Tab (Vistaril) (08/28/21 13:15) Ns Iv 1000 Ml (Sodium Chloride 0.9%) (08/28/21 13:19) Ct Abdomen/Pelvis Wo (08/28/21 14:21) Famotidine Injection (Pepcid Injection) (08/28/21 14:30) Sucralfate Tablet (Carafate Tablet) (08/28/21 14:30) Thyroid Stimulating Hormone (08/28/21 15:11) Free T4 (Free Thyroxine) (08/28/21 15:11) Medications Given in ED Vital Signs/I&O 08/28/21 08/28/21 13:00 15:16 Temp 36.5 36.5 Pulse 71 68 Resp 18 18 B/P (MAP) 225/78 (127) 185/62 Pulse Ox 98 98 O2 Delivery Room Air Room Air Progress Progress Note : Progress Note Patient with no acute or significant findings that would be causing her pruritus. Patient also with a negative CT outside of some fecal stasis as a reason for her abdominal discomfort. I discussed with Dr. Kasper her primary care provider who will continue to manage her on an outpatient basis. I recommended good skin care with a good lotion and oatmeal baths. Patient stable and discharged back to the longterm. Diagnostic Imaging Diagonstic Imaging: Xray Plain Films/CT/US/NM/MRI: chest, abdomen Comments ACUTE ABD SERIES INDICATION: Nausea and dizziness. TIME OF EXAM: 01:11 p.m. COMPARISON: Comparison is made with abdominal radiograph from 07/10/2017. FINDINGS: Heart is mildly enlarged. There is some linear scarring or atelectasis in the right lung base. Otherwise, lungs are clear. No free air is identified. The bowel gas pattern appears nonobstructed. No pathologic calcifications are seen. There are postop changes of posterior instrumented fusion in the lower lumbar spine. IMPRESSION: No acute abnormality is detected. Diagonstic Imaging: CT Plain Films/CT/US/NM/MRI: abdomen Comments Date of Exam:08/28/21 CT ABDOMEN/PELVIS WO PROCEDURE: CT abdomen and pelvis without contrast. TECHNIQUE: Multiple contiguous axial images were obtained through the abdomen and pelvis without the use of intravenous contrast. Auto Exposure Controls were utilized during the CT exam to meet ALARA standards for radiation dose reduction. INDICATION: Abdominal pain. FINDINGS: The lung bases are clear. Liver is unremarkable. The gallbladder appears to be surgically absent. The spleen is not enlarged. Pancreas appears normal. Adrenals appear normal. There is some atrophy of the kidneys. There is aortic atherosclerosis. There is no evidence of aneurysm. Small bowel is not dilated. There is a moderate amount of stool present throughout the colon. There is diverticulosis of the colon without evidence of diverticulitis. There is a calcified left adnexal cyst. There are some calcified uterine fibroids. Urinary bladder appears normal. There is a small fatty filled umbilical hernia. There is no intraperitoneal free air or free fluid. There is no evidence for appendicitis. There is diastasis of the abdominal musculature in the low abdomen extending into pannus. This is unchanged from exam dated 06/25/2021. IMPRESSION: Fecal stasis. Uncomplicated colonic diverticulosis. No acute abnormalities seen. No appreciable interval change compared to 06/25/2021. Reviewed: Reviewed by Me, Reviewed/Discussed Departure Impression Primary Impression: Constipation Qualified Codes: K59.00 - Constipation, unspecified Additional Impression: Pruritus Disposition: HOME, SELF-CARE Condition: Stable Departure-Patient Inst. Patient Instructions: Constipation, Adult (DC), Itchy Skin Add. Discharge Instructions: oatmeal baths treatment such as aveeno aveeno, eucerin, cetafil or similar hydrating lotion follow up with Dr Kasper for further outpt workup and treatment options. JONNIE RADFORD DO Aug 28, 2021 13:03
[2021-08-28] MEDS ORDERED: hydrOXYzine (VISTARIL/ATARAX) 25 MG capsule/tablet PO ONE (13:15)
[2021-08-28] MEDS ORDERED: NS IV 1000 ML 1,000 ML IV STA (13:19)
[2021-08-28 13:36] LABS: EOSINOPHILS % (AUTO) 4 % (0-10); HEMATOCRIT 36 % (35-52); HEMOGLOBIN 11.7 g/dL (11.5-16.0); LYMPHOCYTES % (AUTO) 29 % (12-44); MEAN CORPUSCULAR HEMOGLOBIN 28 pg (25-34); MEAN CORPUSCULAR HGB CONC 32 g/dL (32-36); MEAN CORPUSCULAR VOLUME 88 fL (80-99); MEAN PLATELET VOLUME 14.1 fL (9.0-12.2); MONOCYTES % (AUTO) 9 % (0-12); NEUTROPHILS % (AUTO) 58 % (42-75); PLATELET COUNT 171 10^3/uL (130-400); WHITE BLOOD COUNT 9.4 10^3/uL (4.3-11.0)
[2021-08-28 13:37] LABS: BASOPHILS % (AUTO) 0 % (0-10); EOSINOPHILS # (AUTO) 0.4 10^3/uL (0.0-0.3); LYMPHOCYTES # (AUTO) 2.7 X 10^3 (1.0-4.0); MONOCYTES # (AUTO) 0.8 X 10^3 (0.0-1.0); NEUTROPHILS # (AUTO) 5.5 X 10^3 (1.8-7.8)
[2021-08-28 13:44] LABS: CREATININE SERUM 1.5 MG/DL (0.60-1.30)
[2021-08-28 13:45] LABS: ALBUMIN 3.2 GM/DL (3.2-4.5); BILIRUBIN,TOTAL 0.2 MG/DL (0.1-1.0); CALCIUM 8.9 MG/DL (8.5-10.1); MAGNESIUM 1.3 MG/DL (1.6-2.4); POTASSIUM 3.2 MMOL/L (3.6-5.0); TOTAL PROTEIN 7.1 GM/DL (6.4-8.2)
--- NOTE | 2021-08-28 13:45 | Diagnostic Imaging Report ---
INDICATION: Nausea and dizziness. TIME OF EXAM: 01:11 p.m. COMPARISON: Comparison is made with abdominal radiograph from 07/10/2017. FINDINGS: Heart is mildly enlarged. There is some linear scarring or atelectasis in the right lung base. Otherwise, lungs are clear. No free air is identified. The bowel gas pattern appears nonobstructed. No pathologic calcifications are seen. There are postop changes of posterior instrumented fusion in the lower lumbar spine. IMPRESSION: No acute abnormality is detected. Dictated by: Dictated on workstation # [id number]
[2021-08-28] MEDS ORDERED: FAMOTIDINE 20MG/2ML IV (PEPCID) IVP ONE (14:30)
[2021-08-28] MEDS ORDERED: SUCRALFATE 1 GM (CARAFATE) TAB PO ONE (14:30)
--- NOTE | 2021-08-28 14:53 | Diagnostic Imaging Report ---
PROCEDURE: CT abdomen and pelvis without contrast. TECHNIQUE: Multiple contiguous axial images were obtained through the abdomen and pelvis without the use of intravenous contrast. Auto Exposure Controls were utilized during the CT exam to meet ALARA standards for radiation dose reduction. INDICATION: Abdominal pain. FINDINGS: The lung bases are clear. Liver is unremarkable. The gallbladder appears to be surgically absent. The spleen is not enlarged. Pancreas appears normal. Adrenals appear normal. There is some atrophy of the kidneys. There is aortic atherosclerosis. There is no evidence of aneurysm. Small bowel is not dilated. There is a moderate amount of stool present throughout the colon. There is diverticulosis of the colon without evidence of diverticulitis. There is a calcified left adnexal cyst. There are some calcified uterine fibroids. Urinary bladder appears normal. There is a small fatty filled umbilical hernia. There is no intraperitoneal free air or free fluid. There is no evidence for appendicitis. There is diastasis of the abdominal musculature in the low abdomen extending into pannus. This is unchanged from exam dated 06/25/2021. IMPRESSION: Fecal stasis. Uncomplicated colonic diverticulosis. No acute abnormalities seen. No appreciable interval change compared to 06/25/2021. Dictated by: Dictated on workstation # [id number]
[2021-08-28 15:06] LABS: PHOSPHORUS 3.7 MG/DL (2.3-4.7)
[2021-08-28 15:16] VITALS: BP 185/62
[2021-08-28 15:51] LABS: FREE T4 (FREE THYROXINE) 0.91 NG/DL (0.70-1.48)
[2021-08-28 21:49] LABS: HEPATITIS C ANTIBODY C Non-Reactive (Non-Reactive)
== END 2021-08-28 17:14 | disposition home or self-care (01) ==
LOC: EDUNIT# 13:00 → ER FS 13:02
DX: K59.00 Constipation, unspecified (principal); L29.9 Pruritus, unspecified; Z79.01 Long term (current) use of anticoagulants; Z79.82 Long term (current) use of aspirin
CPT/HCPCS: 36415; 74022; 74176; 80053; 80074; 83690; 83735; 84100; 84439; 84443; 85025

== ENCOUNTER → 2021-09-14 | Outpatient (CLI) | payer MEDICARE, OTHER ==
[2021-09-14 13:36] LABS: HEMATOCRIT 34 % (35-52); HEMOGLOBIN 10.9 g/dL (11.5-16.0); MEAN CORPUSCULAR HEMOGLOBIN 28 pg (25-34); MEAN CORPUSCULAR HGB CONC 33 g/dL (32-36); MEAN CORPUSCULAR VOLUME 86 fL (80-99); MEAN PLATELET VOLUME 13.9 fL (9.0-12.2); PLATELET COUNT 145 10^3/uL (130-400); WHITE BLOOD COUNT 8.7 10^3/uL (4.3-11.0)
[2021-09-14 13:55] LABS: BILIRUBIN,TOTAL 0.2 MG/DL (0.1-1.0); CALCIUM 9.1 MG/DL (8.5-10.1); CREATININE SERUM 1.65 MG/DL (0.60-1.30); POTASSIUM 3.3 MMOL/L (3.6-5.0); TOTAL PROTEIN 6.2 GM/DL (6.4-8.2)
[2021-09-14 21:56] LABS: FREE T4 (FREE THYROXINE) 0.88 NG/DL (0.70-1.48)
== END ==
PROVIDERS: ATTEND Pediatrics
DX: R11.0 Nausea (principal)
CPT/HCPCS: 36415; 80053; 84439; 84443; 85027

== ENCOUNTER → 2021-09-15 | Outpatient (CLI) | payer MEDICARE, OTHER ==
[2021-09-15 11:28] LABS: CALCIUM 8.9 MG/DL (8.5-10.1); CREATININE SERUM 1.47 MG/DL (0.60-1.30); POTASSIUM 3.1 MMOL/L (3.6-5.0)
== END ==
PROVIDERS: ATTEND Pediatrics
DX: R11.0 Nausea (principal)
CPT/HCPCS: 36415; 80048

== ENCOUNTER 2021-09-25 14:47 | Emergency (ER) | payer MEDICARE, OTHER ==
[2021-09-25] MEDS ORDERED: LIDOCAINE UROJET 2% GEL 10 ML PKG ONE (14:53)
[2021-09-25] MEDS ORDERED: LIDOCAINE UROJET 2% GEL 10 ML PKG TOP ONE (15:00)
[2021-09-25] MEDS ORDERED: BISACODYL 10 MG SUPP (DULCOLAX) ONE (15:00)
--- NOTE | 2021-09-25 15:38 | ED Abdominal Pain ---
General Chief Complaint: Abdominal/GI Problems Stated Complaint: ABD PAIN Source of Information: Patient, EMS, Shelter Records Exam Limitations: No Limitations History of Present Illness Date Seen by Provider: Sep 25, 2021 Time Seen by Provider: 14:53 Initial Comments Here with a variety of reports. [facility] called report and stated that patient had abdominal pain with 20 pound weight loss and decreased appetite and was concerned and apparently her primary care doctor wanted her evaluated. EMS report was that the patient has constipation and has been impacted further 2 weeks so not eating and the [facility] does not do disimpaction so they sent her here. Patient reports that she does have abdominal pain and feels impacted and has not had a bowel movement for some time and has not been able to eat because of the difficulty with bowel movement. Apparently she has had this problem previously. Patient is requesting disimpaction. Patient apparently has weight 184 pounds on previous visit and 180 pounds today. She denies fever or chills. She has been vaccinated for COVID. Denies other complaints other than difficulty with bowel movement and rectal pain due to infection. Timing/Duration: Getting Worse, Other (2 weeks) Severity/Quality: Moderate, Cramping Location: Generalized Abdomen, Other (Rectal) Radiation: No Radiation Activities at Onset: None Modifying Factors: Worsens With Eating Associated Symptoms: No Back Pain, No Chest Pain, No Fever/Chills, No Nausea/Vomiting, No Shortness of Air, No Weakness Allergies and Home Medications Allergies Coded Allergies: amlodipine (Verified Allergy, Unknown, 04/09/17) influenza virus vaccine, specific (Verified Allergy, Unknown, 04/09/17) loratadine (Verified Allergy, Unknown, 04/09/17) metformin (Verified Allergy, Unknown, 04/09/17) niacin (Verified Allergy, Unknown, 04/09/17) Patient Home Medication List Home Medication List Reviewed: Yes Acetaminophen (Tylenol Extra Strength) 500 Mg Tablet, 1,000 MG PO HS, (Reported) Entered as Reported by: CONNER OLIVO on 04/09/17 111 Aspirin (Aspirin EC) 325 Mg Tablet.dr, 325 MG PO DAILY, (Reported) Entered as Reported by: CONNER OLIVO on 04/09/17 1115 Bethanechol Chloride (Bethanechol Chloride) 25 Mg Tablet, 25 MG PO BID Prescribed by: SHWETA FRANKS on 04/15/17 0935 Carvedilol (Carvedilol) 25 Mg Tablet, 25 MG PO BID, (Reported) Entered as Reported by: CONNER OLIVO on 04/09/171114 Clopidogrel Bisulfate (Clopidogrel) 75 Mg Tablet, 75 MG PO DAILY, (Reported) Entered as Reported by: CONNER OLIVO on 04/09/171114 Cranberry Extract (Cranberry) 250 Mg Capsule, 250 MG PO BID, (Reported) Entered as Reported by: CONNER OLIVO on 04/09/171114 Dextran 70/Hypromellose (Genteal Tears 0.1%-0.3% Drop) 15 Ml Drops, 1 DROP OU TID, (Reported) Entered as Reported by: CONNER OLIVO on 04/09/171114 Dextran/Hypromellose/Glycerin (Genteal Tears 0.1%-0.2%-0.3%) 15 Ml Drops, 1 DROP OU PRN PRN for DRY EYES, (Reported) Entered as Reported by: CONNER OLIVO on 04/09/171114 Docusate Sodium (Colace) 100 Mg Capsule, 100 MG PO DAILY PRN for CONSTIPATION- 1ST LINE, (Reported) Entered as Reported by: CONNER OLIVO on 04/09/171114 Duloxetine HCl (Duloxetine HCl) 60 Mg Capsule.dr, 60 MG PO HS, (Reported) Entered as Reported by: CONNER OLIVO on 04/09/171114 Glipizide (Glipizide) 5 Mg Tablet, 5 MG PO 1200, (Reported) Entered as Reported by: CONNER OLIVO on 04/09/171114 Glucosamine/D3/Boswellia Vijaya (Glucosamine Complex Tablet) 1 Each Tablet, 1 TAB PO TID, (Reported) Entered as Reported by: CONNER OLIVO on 04/09/171114 Hydralazine HCl (Hydralazine HCl) 25 Mg Tablet, 25 MG PO TID, (Reported) Entered as Reported by: CONNER OLIVO on 04/09/171114 Hydrochlorothiazide (Hydrochlorothiazide) 50 Mg Tablet, 50 MG PO DAILY PRN for HTN, (Reported) Entered as Reported by: CONNER OLIVO on 04/09/171114 Insulin Glargine,Hum.rec.anlog (Lantus) 100 Unit/1 Ml Vial, 60 UNITS SC DAILY, (Reported) Entered as Reported by: CONNER OLIVO on 04/09/171114 L. Acidophilus/Bifido Longum (Sm Acidophilus 15 mg Yadi Cap) 15 Mg Capsule.dr, 1 CAP PO BID, (Reported) Entered as Reported by: CONNER OLIVO on 04/09/171114 Levothyroxine Sodium (Levothyroxine Sodium) 50 Mcg Tablet, 50 MCG PO DAILY, (Reported) Entered as Reported by: CONNER OLIVO on 04/09/171114 Lutein/Zeaxanthin (Lutein-Zeaxanthin 25-5 mg Sfgl) 1 Each Capsule, 1 CAP PO DAILY, (Reported) Entered as Reported by: CONNER OLIVO on 04/09/171114 Melatonin/Pyridoxine (Melatonin 5 mg Tablet) 1 Each Tablet, 5 MG PO HS, (Reported) Entered as Reported by: CONNER OLIVO on 04/09/171114 Naproxen Sodium (Aleve) 220 Mg Tablet, 220 MG PO DAILY, (Reported) Entered as Reported by: CONNER OLIVO on 04/09/171114 Naproxen Sodium (Aleve) 220 Mg Tablet, 220 MG PO BID PRN for PAIN-MILD, (Reported) Entered as Reported by: CONNER OLIVO on 04/09/171114 Oxycodone HCl/Acetaminophen (Oxycodone-Acetaminophen 5-325) 1 Each Tablet, 1 TAB PO Q4H PRN for PAIN-MODERATE Prescribed by: SHWETA FRANKS on 04/15/17 0935 Pantoprazole Sodium (Pantoprazole Sodium) 40 Mg Tablet.dr, 40 MG PO DAILY, (Reported) Entered as Reported by: CONNER OLIVO on 04/09/171114 Quetiapine Fumarate (Quetiapine Fumarate) 25 Mg Tablet, 12.5 MG PO HS, (Reported) Entered as Reported by: CONNER OLIVO on 04/09/171114 Quetiapine Fumarate (Seroquel) 25 Mg Tablet, 25 MG PO DAILY PRN for ANXIETY, (Reported) Entered as Reported by: CONNER OLIVO on 04/09/171114 Review of Systems Review of Systems Constitutional: see HPI; No chills, No fever EENTM: No Nose Congestion, No Throat Pain Respiratory: Denies Cough, Denies Shortness of Air Cardiovascular: No Symptoms Reported Gastrointestinal: Abdominal Pain, Constipated; Denies Vomiting; Other (Impaction) Genitourinary: No Symptoms Reported Musculoskeletal: no symptoms reported Skin: no symptoms reported Psychiatric/Neurological: No Symptoms Reported All Other Systems Reviewed Negative Unless Noted: Yes Past Oggsamy-Eplnws-Gkchcs Hx Patient Social History Tobacco Use?: No Use of E-Cig and/or Vaping dev: No Substance use?: No Alcohol Use?: No Pt feels they are or have been: No Immunizations Up To Date First/Initial COVID19 Vaccinat: 2020 Second COVID19 Vaccination Arun: 2020 Third COVID19 Vaccination Date: 2020 Seasonal Allergies Seasonal Allergies: No Past Medical History Surgery/Hospitalization HX: ID,STENTS,GERD,HIGH LIPIDS, DM,ANXIETY Surgeries: Yes (1 REMOVED OVARY) Orthopedic Respiratory: No Cardiac: Yes Coronary Artery Disease, Hypertension Neurological: Yes Neuropathy Reproductive Disorders: No Female Reproductive Disorders: Denies Sexually Transmitted Disease: No HIV/AIDS: No Genitourinary: Yes (RENAL ARTERY OCCLUDED) UTI-Chronic Gastrointestinal: No (GERDS) Gastroesophageal Reflux Musculoskeletal: Yes Degenerate Disk Disease, Arthritis, Chronic Back Pain, Fractures Endocrine: Yes Diabetes, Non-Insulin dep HEENT: No Loss of Vision: Denies Hearing Impairment: Denies Cancer: No Psychosocial: No Sleep Difficulties, Anxiety, Depression Integumentary: No Blood Disorders: No Adverse Reaction/Blood Tranf: Yes Family Medical History Reviewed Nursing Family Hx Cardiovascular disease 19 MOTHER Diabetes mellitus 19 MOTHER G8 BROTHER G8 BROTHER Hypertension 19 FATHER Heart Disease, Cancer, Diabetes, Hypertension Physical Exam Vital Signs Vital Signs - First Documented 09/25/21 14:50 Temp 36.4 Pulse 72 Resp 20 B/P (MAP) 126/73 (90) Pulse Ox 98 O2 Delivery Room Air Capillary Refill : Height/Weight/BMI Height: 5'5.00" Weight: 221lbs. 0.0oz. 100.308007nm; 35.00 BMI Method:Stated General Appearance: WD/WN, mild distress, obese HEENT: PERRL/EOMI, pharynx normal Neck: full range of motion, supple Respiratory: lungs clear, normal breath sounds Cardiovascular: regular rate, rhythm, no murmur Gastrointestinal: soft; No distended; tenderness (Diffusely mild) Extremities: non-tender, normal inspection Back: normal inspection, no CVA tenderness, no vertebral tenderness Neurologic/Psychiatric: alert, other (Agitated and anxious) Skin: normal color, warm/dry Progress/Results/Core Measures Results/Orders Lab Results Laboratory Tests Test 09/25/21 15:43 Range/Units Glucometer 146 H 70-110 MG/DL My Orders Orders - MATTHEW JAY MD Lidocaine 2% (Urojet) (Xylocaine Urojet) (09/25/21 15:00) Lidocaine 2% (Urojet) (Xylocaine Urojet) (09/25/21 14:53) Bisacodyl Suppository (Dulcolax Supposit (09/25/21 15:00) Acute Abd Series (09/25/21 15:17) Na Phos/Na Biphos Enema (Fleet Enema Larry (09/25/21 16:45) Na Phos/Na Biphos Enema (Fleet Enema Larry (09/25/21 16:44) Medications Given in ED Current Medications Medications Dose Ordered Sig/Hany Route Start Time Stop Time Status Last Admin Dose Admin Bisacodyl 10 mg STK-MED ONCE .ROUTE 09/25/21 15:00 09/25/21 15:03 DC 09/25/21 15:23 10 MG Lidocaine HCl 10 ml ONCE ONCE TOP 09/25/21 15:00 09/25/21 15:01 DC 09/25/21 14:45 10 ML Sodium Biphosphate/ Sodium Phosphate 1 ea ONCE ONCE AL 09/25/21 16:45 09/25/21 16:46 DC 09/25/21 17:05 1 EA Vital Signs/I&O 09/25/21 14:50 Temp 36.4 Pulse 72 Resp 20 B/P (MAP) 126/73 (90) Pulse Ox 98 O2 Delivery Room Air Progress Progress Note : Progress Note Seen and evaluated. Patient has large stool ball per nursing. Disimpaction by nursing using Urojet. Dulcolax suppositories 2 tablets placed afterwards. We will get acute abdominal series after. 1719: Abdominal series does show obstipation. Fleets enema given with some success. Overall no acute findings otherwise. She is better currently. Bowel regimen can continue at long-term care facility. Discharge back to care facility with return precautions. Nursing report given by ER to facility nurse. Verbalized understanding of instructions and agreement with plan. Diagnostic Imaging Diagonstic Imaging: Xray Plain Films/CT/US/NM/MRI: chest, abdomen Comments [facility]. [place], [place] NAME: SHAMIKA [facility] REC#: [id number] PT STATUS: REG ER : 1935 PHYSICIAN: MATTHEW JAY MD ADMIT DATE: 09/25/21/ER FS Signed Date of Exam:09/25/21 ACUTE ABD SERIES Indication: Acute abdominal pain PA chest, supine and upright abdominal images are obtained Lungs are clear. There are no effusions or pneumothoraces. There is no intraperitoneal free air. Bowel gas pattern is normal. There are postoperative changes from discectomy and fusion of the lower lumbar spine with diffuse degenerative changes elsewhere spine. There is an embolization coil in the right lower quadrant of the abdomen. There is splenic artery calcification. There is moderate fecal stasis throughout the colon. IMPRESSION: Fecal stasis consistent with constipation. No acute abnormality seen. Dictated by: Dictated on workstation # [id number] Dict: 09/25/21 1547 Trans: 09/25/21 1548 TCB [id number] Interpreted by: MATTHEW VASQUEZ MD Electronically signed by: MATTHEW VASQUEZ MD 09/25/21 1548 Departure Impression Primary Impression: Constipation Qualified Codes: K59.00 - Constipation, unspecified Additional Impression: Fecal impaction in rectum Disposition: HOME, SELF-CARE Condition: Stable Departure-Patient Inst. Decision time for Depature: 17:20 Referrals: SHWETA FRANKS MD (PCP/Family) Primary Care Physician Patient Instructions: Fecal Impaction, Constipation, Adult ED Add. Discharge Instructions: All discharge instructions reviewed with patient and/or family. Voiced understanding. Continue constipation bowel regimen at facility per previous orders. Encourage plenty of fluids. Return for worse pain, vomiting, fever or other concerns as needed. Call and make appointment with primary care physician. MATTHEW JAY MD Sep 25, 2021 15:37
--- NOTE | 2021-09-25 15:49 | Diagnostic Imaging Report ---
Indication: Acute abdominal pain PA chest, supine and upright abdominal images are obtained Lungs are clear. There are no effusions or pneumothoraces. There is no intraperitoneal free air. Bowel gas pattern is normal. There are postoperative changes from discectomy and fusion of the lower lumbar spine with diffuse degenerative changes elsewhere spine. There is an embolization coil in the right lower quadrant of the abdomen. There is splenic artery calcification. There is moderate fecal stasis throughout the colon. IMPRESSION: Fecal stasis consistent with constipation. No acute abnormality seen. Dictated by: Dictated on workstation # [id number]
[2021-09-25] MEDS ORDERED: FLEET ENEMA ADULT 1 EA BTL ONE (16:44)
[2021-09-25] MEDS ORDERED: FLEET ENEMA ADULT 1 EA BTL PR ONE (16:45)
[2021-09-25 17:16] VITALS: BP 132/62
== END 2021-09-25 18:07 | disposition home or self-care (01) ==
LOC: EDUNIT# 14:47 → ER FS 14:49
DX: K59.00 Constipation, unspecified (principal); I10 Essential (primary) hypertension; F41.9 Anxiety disorder, unspecified; F32.9 Major depressive disorder, single episode, unspecified; E11.9 Type 2 diabetes mellitus without complications; G89.29 Other chronic pain; M54.9 Dorsalgia, unspecified; K21.9 Gastro-esophageal reflux disease without esophagitis; E66.9 Obesity, unspecified; Z68.35 Body mass index [BMI] 35.0-35.9, adult; Z79.82 Long term (current) use of aspirin; Z79.01 Long term (current) use of anticoagulants; Z79.891 Long term (current) use of opiate analgesic; Z79.899 Other long term (current) drug therapy
CPT/HCPCS: 74022; 82947

== ENCOUNTER 2021-10-01 21:13 | Emergency (ER) | payer MEDICARE, OTHER ==
[~2021-10-01] VITALS: Ht 167.7 cm; Wt 90.0 kg
[2021-10-01] MEDS ORDERED: cefTRIAXone 1 GM PRE-MIX 50 ML IV STA (21:24)
[2021-10-01] MEDS ORDERED: AZITHROMYCIN INJECTION 500 MG in NS (IVPB) 250 ML IV ONE (21:30)
[2021-10-01] MEDS ORDERED: LACTATED RINGERS 1,000 ML IV SCH (21:30)
[2021-10-01] MEDS ORDERED: RT-ALBUTEROL/IPRATROPIUM 3 ML (DUONEB) VIAL INH ONE (21:30)
[2021-10-01] MEDS ORDERED: LACTATED RINGERS 1,000 ML IV ONE (21:31)
[2021-10-01 21:43] LABS: INR 1.1 (0.8-1.4); PROTHROMBIN TIME PATIENT 14.3 SEC (12.2-14.7)
--- NOTE | 2021-10-01 21:44 | ED Respiratory ---
General Stated Complaint: AMS,SOB Source: patient Exam Limitations: no limitations History of Present Illness Date Seen by Provider: Oct 01, 2021 Time Seen by Provider: 21:17 Initial Comments 86-year-old female with past medical history of CAD with stenting, DM2, hypertension, CKD with renal artery occlusion coming in via EMS from her halfway due to respiratory distress. The patient has been having difficulty breathing and has had oxygen saturations in the 50s to 60s for an unknown amount of time. EMS reports they have her on CPAP with an oxygen in the mid 80s. She is confirmed DNR/DNI with paperwork included. EMS reports she is slightly altered as well and not answering questions appropriately. She has not received any medications that are new today. There are people in the halfway to have COVID as well as influenza but as far as they know she is not positive. She is fully vaccinated for COVID. Further elements of the history and physical are unable to be obtained by the patient given her critical illness. Allergies and Home Medications Allergies Coded Allergies: amlodipine (Verified Allergy, Unknown, 04/09/17) influenza virus vaccine, specific (Verified Allergy, Unknown, 04/09/17) loratadine (Verified Allergy, Unknown, 04/09/17) metformin (Verified Allergy, Unknown, 04/09/17) niacin (Verified Allergy, Unknown, 04/09/17) Patient Home Medication List Home Medication List Reviewed: Yes Acetaminophen (Tylenol Extra Strength) 500 Mg Tablet, 1,000 MG PO HS, (Reported) Entered as Reported by: CONNER OLIVO on 04/09/17 111 Aspirin (Aspirin EC) 325 Mg Tablet.dr, 325 MG PO DAILY, (Reported) Entered as Reported by: CONNER OLIVO on 04/09/17 111 Bethanechol Chloride (Bethanechol Chloride) 25 Mg Tablet, 25 MG PO BID Prescribed by: SHWETA FRANKS on 04/15/17 0935 Carvedilol (Carvedilol) 25 Mg Tablet, 25 MG PO BID, (Reported) Entered as Reported by: CONNER OLIVO on 04/09/17 111 Clopidogrel Bisulfate (Clopidogrel) 75 Mg Tablet, 75 MG PO DAILY, (Reported) Entered as Reported by: CONNER OLIVO on 04/09/17 111 Cranberry Extract (Cranberry) 250 Mg Capsule, 250 MG PO BID, (Reported) Entered as Reported by: CONNER OLIVO on 04/09/171114 Dextran 70/Hypromellose (Genteal Tears 0.1%-0.3% Drop) 15 Ml Drops, 1 DROP OU TID, (Reported) Entered as Reported by: CONNER OLIVO on 04/09/171114 Dextran/Hypromellose/Glycerin (Genteal Tears 0.1%-0.2%-0.3%) 15 Ml Drops, 1 DROP OU PRN PRN for DRY EYES, (Reported) Entered as Reported by: CONNER OLIVO on 04/09/171114 Docusate Sodium (Colace) 100 Mg Capsule, 100 MG PO DAILY PRN for CONSTIPATION- 1ST LINE, (Reported) Entered as Reported by: CONNER OLIVO on 04/09/171114 Duloxetine HCl (Duloxetine HCl) 60 Mg Capsule.dr, 60 MG PO HS, (Reported) Entered as Reported by: CONNER OLIVO on 04/09/171114 Glipizide (Glipizide) 5 Mg Tablet, 5 MG PO 1200, (Reported) Entered as Reported by: CONNER OLIVO on 04/09/171114 Glucosamine/D3/Boswellia Vijaya (Glucosamine Complex Tablet) 1 Each Tablet, 1 TAB PO TID, (Reported) Entered as Reported by: CONNER OLIVO on 04/09/171114 Hydralazine HCl (Hydralazine HCl) 25 Mg Tablet, 25 MG PO TID, (Reported) Entered as Reported by: CONNER OLIVO on 04/09/171114 Hydrochlorothiazide (Hydrochlorothiazide) 50 Mg Tablet, 50 MG PO DAILY PRN for HTN, (Reported) Entered as Reported by: CONNER OLIVO on 04/09/171114 Insulin Glargine,Hum.rec.anlog (Lantus) 100 Unit/1 Ml Vial, 60 UNITS SC DAILY, (Reported) Entered as Reported by: CONNER OLIVO on 04/09/171114 L. Acidophilus/Bifido Longum (Sm Acidophilus 15 mg Yadi Cap) 15 Mg Capsule.dr, 1 CAP PO BID, (Reported) Entered as Reported by: CONNER OLIVO on 7/26/17 1115 Levothyroxine Sodium (Levothyroxine Sodium) 50 Mcg Tablet, 50 MCG PO DAILY, (Reported) Entered as Reported by: CONNER OLIVO on 04/09/171114 Lutein/Zeaxanthin (Lutein-Zeaxanthin 25-5 mg Sfgl) 1 Each Capsule, 1 CAP PO DAILY, (Reported) Entered as Reported by: CONNER OLIVO on 04/09/171114 Melatonin/Pyridoxine (Melatonin 5 mg Tablet) 1 Each Tablet, 5 MG PO HS, (Reported) Entered as Reported by: CONNER OLIVO on 04/09/171114 Naproxen Sodium (Aleve) 220 Mg Tablet, 220 MG PO DAILY, (Reported) Entered as Reported by: CONNER OLIVO on 04/09/171114 Naproxen Sodium (Aleve) 220 Mg Tablet, 220 MG PO BID PRN for PAIN-MILD, (Reported) Entered as Reported by: CONNER OLIVO on 04/09/171114 Oxycodone HCl/Acetaminophen (Oxycodone-Acetaminophen 5-325) 1 Each Tablet, 1 TAB PO Q4H PRN for PAIN-MODERATE Prescribed by: SHWETA FRANKS on 04/15/17 0935 Pantoprazole Sodium (Pantoprazole Sodium) 40 Mg Tablet.dr, 40 MG PO DAILY, (Reported) Entered as Reported by: CONNER OLIVO on 04/09/171114 Quetiapine Fumarate (Quetiapine Fumarate) 25 Mg Tablet, 12.5 MG PO HS, (Reported) Entered as Reported by: CONNER OLIVO on 04/09/171114 Quetiapine Fumarate (Seroquel) 25 Mg Tablet, 25 MG PO DAILY PRN for ANXIETY, (Reported) Entered as Reported by: CONNER OLIVO on 04/09/171114 Review of Systems Review of Systems Constitutional: No chills, No fever All Other Systems Reviewed Negative Unless Noted: Yes Past Sydcbfc-Phrwxo-Kdlczz Hx Patient Social History Tobacco Use?: No Immunizations Up To Date First/Initial COVID19 Vaccinat: 2020 Second COVID19 Vaccination Arun: 2020 Third COVID19 Vaccination Date: 2020 Seasonal Allergies Seasonal Allergies: No Past Medical History Surgery/Hospitalization HX: [place],STENTS,GERD,HIGH LIPIDS, DM,ANXIETY Surgeries: Yes (1 REMOVED OVARY) Orthopedic Respiratory: No Cardiac: Yes Coronary Artery Disease, Hypertension Neurological: Yes Neuropathy Reproductive Disorders: No Female Reproductive Disorders: Denies Sexually Transmitted Disease: No HIV/AIDS: No Genitourinary: Yes (RENAL ARTERY OCCLUDED) UTI-Chronic Gastrointestinal: No (GERDS) Gastroesophageal Reflux Musculoskeletal: Yes Degenerate Disk Disease, Arthritis, Chronic Back Pain, Fractures Endocrine: Yes Diabetes, Non-Insulin dep HEENT: No Loss of Vision: Denies Hearing Impairment: Denies Cancer: No Psychosocial: No Sleep Difficulties, Anxiety, Depression Integumentary: No Blood Disorders: No Adverse Reaction/Blood Tranf: Yes Family Medical History Cardiovascular disease 19 MOTHER Diabetes mellitus 19 MOTHER G8 BROTHER G8 BROTHER Hypertension 19 FATHER Heart Disease, Cancer, Diabetes, Hypertension Physical Exam Vital Signs - First Documented 10/01/21 21:16 O2 Flow Rate 100.00 Capillary Refill : Height: 5'5.00" Weight: 221lbs. 0.0oz. 100.019247zh; BMI Method:Stated General Appearance: severe distress Eyes: Bilateral Eye Normal Inspection HEENT: PERRL/EOMI, normal ENT inspection, pharynx normal Neck: non-tender, full range of motion, normal inspection Respiratory: chest non-tender, respiratory distress, accessory muscle use, crackles, rales Cardiovascular: regular rate, rhythm, no edema Gastrointestinal: normal bowel sounds, non tender, soft; No distended, No guarding Extremities: normal range of motion, non-tender, normal inspection, no pedal edema, no calf tenderness, slow capillary refill Neurologic/Psychiatric: other (moves all 4 extremities to command, not answering questions but will give a thumbs up when asked, eyes open and alert) Skin: normal color, warm/dry Lymphatic: no adenopathy Focused Exam Lactate Level 10/01/21 21:26: Lactic Acid Level 3.99*H 10/01/21 23:23: Lactic Acid Level 4.01*H Lactic Acid Level Laboratory Tests Test 10/01/21 21:26 10/01/21 23:23 Lactic Acid Level 3.99 MMOL/L (0.50-2.00) *H 4.01 MMOL/L (0.50-2.00) *H Progress/Results/Core Measures Suspected Sepsis SIRS Temperature: Pulse: Respiratory Rate: Laboratory Tests 10/01/21 21:26: White Blood Count 35.1*H Blood Pressure / Mean: 10/01/21 21:26: Lactic Acid Level 3.99*H 10/01/21 23:23: Lactic Acid Level 4.01*H Laboratory Tests 10/01/21 21:26: Creatinine 2.25H, INR Comment 1.1, Platelet Count 118L, Total Bilirubin 0.3 Results/Orders Lab Results Laboratory Tests Test 10/01/21 21:26 10/01/21 23:12 10/01/21 23:23 Range/Units White Blood Count 35.1 *H 4.3-11.0 10^3/uL Red Blood Count 4.55 3.80-5.11 10^6/uL Hemoglobin 12.0 11.5-16.0 g/dL Hematocrit 38 35-52 % Mean Corpuscular Volume 84 80-99 fL Mean Corpuscular Hemoglobin 26 25-34 pg Mean Corpuscular Hemoglobin Concent 32 32-36 g/dL Red Cell Distribution Width 13.8 10.0-14.5 % Platelet Count 118 L 130-400 10^3/uL Mean Platelet Volume 9.0-12.2 fL Immature Granulocyte % (Auto) 2 % Neutrophils (%) (Auto) 78 H 42-75 % Lymphocytes (%) (Auto) 15 12-44 % Monocytes (%) (Auto) 5 0-12 % Eosinophils (%) (Auto) 0 0-10 % Basophils (%) (Auto) 0 0-10 % Neutrophils # (Auto) 27.2 H 1.8-7.8 X 10^3 Lymphocytes # (Auto) 5.1 H 1.0-4.0 X 10^3 Monocytes # (Auto) 1.8 H 0.0-1.0 X 10^3 Eosinophils # (Auto) 0.0 0.0-0.3 10^3/uL Basophils # (Auto) 0.1 0.0-0.1 10^3/uL Immature Granulocyte # (Auto) 0.8 H 0.0-0.1 10^3/uL Neutrophils % (Manual) 61 % Lymphocytes % (Manual) 15 % Monocytes % (Manual) 2 % Band Neutrophils 20 % Reactive Lymphocytes 2 % Toxic Granulation 4+ Platelet Estimate DECREASED Percent Immature Platelet Fraction 17.9 H 0.0-7.6 % Blood Morphology Comment NORMAL Prothrombin Time 14.3 12.2-14.7 SEC INR Comment 1.1 0.8-1.4 Activated Partial Thromboplast Time 68 H 24-35 SEC D-Dimer 1.19 H 0.00-0.49 UG/ML Sodium Level 137 135-145 MMOL/L Potassium Level 2.7 L 3.6-5.0 MMOL/L Chloride Level 99 98-107 MMOL/L Carbon Dioxide Level 20 L 21-32 MMOL/L Anion Gap 18 H 5-14 MMOL/L Blood Urea Nitrogen 83 H 7-18 MG/DL Creatinine 2.25 H 0.60-1.30 MG/DL Estimat Glomerular Filtration Rate 21 BUN/Creatinine Ratio 37 Glucose Level 157 H 70-105 MG/DL Lactic Acid Level 3.99 *H 4.01 *H 0.50-2.00 MMOL/L Calcium Level 8.6 8.5-10.1 MG/DL Corrected Calcium 9.8 8.5-10.1 MG/DL Total Bilirubin 0.3 0.1-1.0 MG/DL Aspartate Amino Transf (AST/SGOT) 47 H 5-34 U/L Alanine Aminotransferase (ALT/SGPT) 21 0-55 U/L Alkaline Phosphatase 168 H 40-136 U/L Troponin I < 0.30 <0.30 NG/ML C-Reactive Protein 27.58 H <0.50 MG/DL Pro-B-Type Natriuretic Peptide 19970.0 H <75.0 PG/ML Total Protein 5.9 L 6.4-8.2 GM/DL Albumin 2.5 L 3.2-4.5 GM/DL Influenza Type A Antigen NEGATIVE NEGATIVE Influenza Type B Antigen NEGATIVE NEGATIVE My Orders Orders - MARISEL MENDEZ MD Chest 1 View Ap/Pa Only (10/01/21 21:24) Cbc With Automated Diff (10/01/21 21:24) Comprehensive Metabolic Panel (10/01/21 21:24) Fibrin Degradation Products (10/01/21 21:24) Lactic Acid Analyzer (10/01/21 21:24) Protime With Inr (10/01/21 21:24) Partial Thromboplastin Time (10/01/21 21:24) Probnp Fs (10/01/21 21:24) Crp Fs (10/01/21 21:24) Troponin I Fs (10/01/21 21:24) Influenza A & B Antigens (10/01/21 21:24) Ed Iv/Invasive Line Start (10/01/21 21:24) Ekg Tracing (10/01/21 21:24) O2 (10/01/21 21:24) Monitor-Rhythm Ecg Trace Only (10/01/21 21:24) End Tidal Co2 (10/01/21 21:24) Blood Culture (10/01/21 21:24) Covid 19 Inhouse Test (10/01/21 21:24) Albuterol/Ipra Inhalation Soln (Duoneb I (10/01/21 21:30) Ceftriaxone 1 Gm Pre-Mix (Rocephin 1 Gm (10/01/21 21:24) Azithromycin Injection (Zithromax Inject (10/01/21 21:30) Lactated Ringers (Lr 1000 Ml Iv Solution (10/01/21 21:30) Lactated Ringers (Lr 1000 Ml Iv Solution (10/01/21 21:31) Manual Differential (10/01/21 21:26) Enoxaparin Injection (Lovenox Injection) (10/01/21 22:30) Potassium Cl 10meq/50ml Ivpb (Kcl 10 Meq (10/01/21 22:56) Magnesium 2 Gm/50 Ml Ivpb (Magnesium 2 G (10/01/21 23:00) Magnesium 1 Gm/100 Ml Ivpb (Magnesium Kilpatrick (10/01/21 23:00) Ns Iv 500 Ml (Sodium Chloride 0.9%) (10/01/21 23:09) Magnesium 1 Gm/100 Ml Ivpb (Magnesium Kilpatrick (10/01/21 23:15) Norepinephrine 8 Mg/250 Ml (Norepinephri (10/01/21 23:11) Medications Given in ED Current Medications Medications Dose Ordered Sig/Hany Route Start Time Stop Time Status Last Admin Dose Admin Albuterol/ Ipratropium 3 ml ONCE ONCE INH 10/01/21 21:30 10/01/21 21:31 DC 10/01/21 21:41 3 ML Azithromycin 500 mg/Sodium Chloride 250 ml @ 250 mls/hr ONCE ONCE IV 10/01/21 21:30 10/01/21 22:29 DC 10/01/21 22:14 250 MLS/HR Magnesium Sulfate/ Dextrose 100 ml @ 100 mls/hr ONCE ONCE IV 10/01/21 23:15 10/02/21 00:14 DC 10/01/21 23:11 100 MLS/HR Vital Signs/I&O 10/01/21 10/01/21 10/01/21 10/01/21 21:16 21:16 21:16 23:53 Temp 37.1 37.1 Pulse 70 70 62 Resp 29 29 B/P (MAP) 67/45 67/45 (52) 95/38 Pulse Ox 88 88 O2 Delivery NIV Bilevel NIV CPAP NIV CPAP O2 Flow Rate 100.00 10/02/21 00:01 Pulse 62 Resp 30 B/P (MAP) 95/38 (57) Pulse Ox 90 O2 Delivery NIV Bilevel 10/02/21 00:00 Intake Total 1800 ml Balance 1800 ml Capillary Refill : Progress Note : Progress Note 86-year-old female with above history coming in in respiratory distress. Her oxygen saturation was 81% on CPAP. I transitioned her to BiPAP given she is DNR/DNI. She improved to 87%. Initial blood pressure in the 60s systolic. An IV was placed and she was given a bolus of IV fluids with improvement to the 100s. Given breathing treatment and line to the BiPAP and her oxygen improved to 88%. Portable chest x-ray ordered and interpreted by me showing an obvious pneumonia on the right side. She was given IV ceftriaxone and azithromycin. COVID and flu testing sent as well with basic labs and cardiac biomarkers. Labs significant for white blood cell count of 35, potassium low at 2.7 so we are replacing it with IV potassium and IV magnesium, elevated creatinine at 2.25, elevated lactate around 4, negative troponin, CRP of 27.5, proBNP of just under 16,000, and elevated D-dimer at 1.19. Chest x-ray with the after mentioned concerns for pneumonia. She possibly has a blood clot, but would not tolerate laying flat in the CT scanner with the BiPAP going as she is already critically ill. We will treat her empirically with 1 mg/kg therapeutic dose of Lovenox. The patient's blood pressure dropped again so she was given another small bolus of IV fluids, and try to balance the tenuousness of her respiratory status with her blood pressure. I believe if she received a full 30 cc/kg bolus of IV fluids given her respiratory status she likely will worsen. I will start norepinephrine after this to try and improve her blood pressure. I did an ultrasound-guided 18-gauge Angiocath in her left AC which is a good line. Given her previously stated wishes, I will hold off on doing a central line as I believe the benefits do not outweigh the risk with her wishes. Called and discussed the case with the patient's daughter and gave her an update. She understands the seriousness of the situation. She confirms the patient's DNR/DNI. Called the warehouse associate driver at our hospital in [place] and likely will not have an ICU bed until morning. [facility] also has no ICU beds tonight. Called [facility] call at [phone]. [place] [facility] [place] on diversion. Called [facility] at 2148 and they have no beds. Called [facility] at 2149 and they are at capacity. Called [facility] transfer line at 2155 and all 6 facilities do not have ICU beds. Called [facility] transfer center at 2158 and they are at capacity. Called [facility] at 2200 and no ICU beds right now, but they are having some movement so can try back around 0200. Called [facility] at 2202 and there are no ICU beds. Called [facility] dispatch at 2204 and all ICU's are full. Called [facility] at 2205 and they have no ICU COVCT beds available. Called [facility] at 2206 and they have no ICU beds available. Called [facility] at 2207 and they have no ICU beds. Called [facility] at 2222 and they have no beds in the hospital. Called [facility] at 2230 for them to work on beds since I have exhausted the list of relatively nearby hospitals. The patient actually began to perk up some and respond to some questions with nods. Her O2 went up to 92% which was the highest it has been. I then contacted the [facility] emergency department to discuss transferring her care there with more nurses, respiratory, and possible palliative care consult in the morning while mission control works on bed placement. Dr. Zeng accepted the patient and they continue her care there. Update at 01:30. We received a call from EMS en route to [place] that the patient had a desat event, became more bradycardic, and then coded. Since she is DNR they called it immediately with asystole. I contacted the patients daughter, Suzanne Bridges, to notify her at 01:28. The patient will be picked up by [facility] from EMS. ECG Initial ECG Impression Date: Oct 01, 2021 Initial ECG Impression Time: 21:38 Initial ECG Rate: 70 Initial ECG Rhythm: Normal Sinus Comment Narrow QRS, normal axis, T wave flattening but no significant ST elevation, QTc 563 Diagnostic Imaging Diagonstic Imaging: Xray Plain Films/CT/US/NM/MRI: chest Comments [facility] [place] [place] NAME: SHAMIKA [facility] REC#: [id number] PT STATUS: REG ER : 1935 PHYSICIAN: MARISEL MENDEZ MD ADMIT DATE: 10/01/21/ER FS Signed Date of Exam:10/01/21 CHEST 1 VIEW AP/PA ONLY INDICATION: Shortness of breath COMPARISON: 06/24/2021 FINDINGS: Single view of the chest demonstrates new infiltrates scattered throughout the right hemithorax. The left lung is clear. The heart is prominent but stable. Trace effusion is seen in the right base. No pneumothorax. Osseous structures stable. IMPRESSION: Infiltrates scattered throughout the right hemithorax most pronounced in the right base likely pneumonia. Dictated by: Dictated on workstation # [id number] Dict: 10/01/212134 Trans: 10/01/212156 KEAGAN [id number] Interpreted by: NINA ADAME Electronically signed by: NINA ADAME 10/01/212156 Critical Care Note Critical Care Start Time: 21:17 Stop Time: 22:59 Total Time (minutes) 102 Progress The patient was at significant risk of further hemodynamic instability. She was in respiratory distress requiring frequent monitoring and reassessments by myself. I frequently was having to adjust her BiPAP machine as well as manage multiple medications including norepinephrine. I called and discussed the case with other physicians as well. All time spent being billed for critical care w as separate of procedures Departure Impression Primary Impression: Pneumonia Qualified Codes: J18.9 - Pneumonia, unspecified organism Additional Impressions: Respiratory failure Qualified Codes: J96.01 - Acute respiratory failure with hypoxia Person under investigation for COVID-19 Disposition: Condition: Transfer Transfer Facility: [facility] ER to ER transfer Method of Transfer: EMS Departure-Patient Inst. Referrals: SHWETA FRANKS MD (PCP/Family) Primary Care Physician MARISEL MENDEZ MD Oct 01, 2021 21:44
[2021-10-01 21:52] LABS: FIBRIN DEGRADATION PRODUCTS 1.19 UG/ML (0.00-0.49)
[2021-10-01 21:53] LABS: HEMATOCRIT 38 % (35-52); MEAN CORPUSCULAR HEMOGLOBIN 26 pg (25-34); MEAN CORPUSCULAR HGB CONC 32 g/dL (32-36); MEAN CORPUSCULAR VOLUME 84 fL (80-99); PLATELET COUNT 118 10^3/uL (130-400); WHITE BLOOD COUNT 35.1 10^3/uL (4.3-11.0)
--- NOTE | 2021-10-01 21:53 | Diagnostic Imaging Report ---
INDICATION: Shortness of breath COMPARISON: 06/24/2021 FINDINGS: Single view of the chest demonstrates new infiltrates scattered throughout the right hemithorax. The left lung is clear. The heart is prominent but stable. Trace effusion is seen in the right base. No pneumothorax. Osseous structures stable. IMPRESSION: Infiltrates scattered throughout the right hemithorax most pronounced in the right base likely pneumonia. Dictated by: Dictated on workstation # [id number]
[2021-10-01 21:54] LABS: BASOPHILS % (AUTO) 0 % (0-10); EOSINOPHILS % (AUTO) 0 % (0-10); LYMPHOCYTES # (AUTO) 5.1 X 10^3 (1.0-4.0); LYMPHOCYTES % (AUTO) 15 % (12-44); MONOCYTES # (AUTO) 1.8 X 10^3 (0.0-1.0); MONOCYTES % (AUTO) 5 % (0-12); NEUTROPHILS # (AUTO) 27.2 X 10^3 (1.8-7.8); NEUTROPHILS % (AUTO) 78 % (42-75)
[2021-10-01 21:55] LABS: BASOPHILS # (AUTO) 0.1 10^3/uL (0.0-0.1)
[2021-10-01 22:07] LABS: BAND NEUTROPHILS 20 %; LYMPHOCYTES % (MANUAL) 15 %; MONOCYTES % (MANUAL) 2 %; NEUTROPHILS % (MANUAL) 61 %; REACTIVE LYMPHOCYTES 2 %
[2021-10-01 22:08] LABS: RBC MORPH NORMAL; TOXIC GRANULATION/VACUOLAZATIO 4+
[2021-10-01 22:10] LABS: PLATELET ESTIMATE DECREASED
[2021-10-01 22:13] LABS: CARBON DIOXIDE 20 MMOL/L (21-32); CHLORIDE 99 MMOL/L (98-107); POTASSIUM 2.7 MMOL/L (3.6-5.0); SODIUM 137 MMOL/L (135-145)
[2021-10-01 22:14] LABS: ALANINE AMINOTRANSFERASE 21 U/L (0-55); ALBUMIN 2.5 GM/DL (3.2-4.5); ALKALINE PHOSPHATASE 168 U/L (40-136); BILIRUBIN,TOTAL 0.3 MG/DL (0.1-1.0); BUN/CREATININE RATIO 37; CALCIUM 8.6 MG/DL (8.5-10.1); CREATININE SERUM 2.25 MG/DL (0.60-1.30); GFR ESTIMATED 21; GLUCOSE 157 MG/DL (70-105); TOTAL PROTEIN 5.9 GM/DL (6.4-8.2)
[2021-10-01] MEDS ORDERED: ENOXAPARIN 100 MG/1 ML (LOVENOX) SYR SC SCH (22:30)
[2021-10-01] MEDS ORDERED: POTASSIUM CL 10MEQ/50ML IVPB 50 ML IV STA (22:56)
[2021-10-01] MEDS ORDERED: MAGNESIUM 2 GM/50 ML IVPB 50 ML IV ONE (23:00)
[2021-10-01] MEDS ORDERED: MAGNESIUM 1 GM/100 ML IVPB 100 ML IV ONE ×2 (23:00→23:15)
[2021-10-01] MEDS ORDERED: NS IV 500 ML 500 ML IV STA (23:09)
[2021-10-01] MEDS ORDERED: NOREPINEPHRINE 8 MG/250 ML 250 ML IV STA (23:11)
[2021-10-02 00:01] VITALS: BP 95/38
== END 2021-10-02 00:01 | disposition home or self-care (01) ==
LOC: EDUNIT# 21:13 → ER FS 21:14
DX: J18.9 Pneumonia, unspecified organism (principal); J96.90 Respiratory failure, unspecified, unspecified whether with hypoxia or hypercapnia; I10 Essential (primary) hypertension; K21.9 Gastro-esophageal reflux disease without esophagitis; E11.9 Type 2 diabetes mellitus without complications; F41.9 Anxiety disorder, unspecified; F32.9 Major depressive disorder, single episode, unspecified; G89.29 Other chronic pain; M54.9 Dorsalgia, unspecified; Z20.822 Contact with and (suspected) exposure to COVID-19; Z79.899 Other long term (current) drug therapy; Z79.01 Long term (current) use of anticoagulants; Z79.82 Long term (current) use of aspirin; Z79.891 Long term (current) use of opiate analgesic
CPT/HCPCS: 36415; 71045; 80053; 83605; 83880; 84484; 85007; 85027; 85379; 85610; 85730; 86141; 87040; 87636; 87804; 93005; 93041; 96361; 96365; 96367; 96372; 96375